=== PATIENT | female | born 1960 | race African-American/Black ===

== ENCOUNTER 2016-05-03 06:14 | Day surgery (SDC) | payer OTHER ==
[2016-05-02 14:26] VITALS: BMI 23.1
[2016-05-03] MEDS ORDERED: BUPIVACAINE HCL/PF 0.5% (5MG/ML) 10 ML VIAL ONE (07:49)
[2016-05-03] MEDS ORDERED: LIDOCAINE HCL 1%, 10 MG/ML (20ML VIAL) ONE (07:49)
[2016-05-03] MEDS ORDERED: MIDAZOLAM HCL 2 MG/2 ML SINGLE DOSE VIAL ONE (07:52)
[2016-05-03] MEDS ORDERED: PROPOFOL 20 ML ONE ×2 (07:53)
[2016-05-03] MEDS ORDERED: LIDOCAINE HCL/PF 2% SDV 5ML VIAL ONE (07:53)
--- NOTE | 2016-05-03 08:18 | HP ---
History & Physical Update - History History: No Change - Physical Physical: No Change - Assessment Assessment: No Change - Plan Plan: No Change
[2016-05-03] MEDS ORDERED: ceFAZolin SODIUM 1 GM VIAL IVPB ONE (08:26)
--- NOTE | 2016-05-03 09:14 | OP ---
Operative Note - Note: Operative Date: 05/03/16 Pre-Operative Diagnosis: Right buttock cyst Operation: Excision, right buttock cyst Findings: two cm cyst Post-Operative Diagnosis: Same as Pre-op Surgeon: Zander Chaudhary Anesthesia: Local, MAC Specimens Removed: buttock cyst Estimated Blood Loss (mls): 5 Operative Report Dictated: Yes
[2016-05-03] MEDS ORDERED: ONDANSETRON 4 MG/2 ML VIAL IVPUSH PRN (09:17)
[2016-05-03 10:33] VITALS: TEMP 98.2
[2016-05-03 11:14] VITALS: BP 129/73; PULSE 53
--- NOTE | 2016-05-03 19:50 | OP ---
DATE OF OPERATION: 05/03/2016 PROCEDURE: Excision of right buttock cyst with intermediate repair. PREOPERATIVE DIAGNOSIS: Right buttock cyst. POSTOPERATIVE DIAGNOSIS: Right buttock cyst. SURGEON: Zander Chaudhary MD ANESTHESIA: Local with sedation. FINDINGS AND PROCEDURE: This is a 56-year-old female who presented 6 weeks prior with an infected right buttock sebaceous cyst. An I&D in the office was initially done to control the infection. Six weeks later, the cyst persisted, so patient was advised elective excision of the cyst. Consent was obtained after discussing the risks, benefits and alternatives to the procedure. The patient was brought to the operating room and placed in left lateral decubitus position. Intravenous sedation was given by the anesthesia team. The right buttock was prepped and draped in the usual sterile fashion. Using lidocaine 1% with epinephrine, local anesthesia was administered to the proposed incision site. A 4 x 1.5-cm elliptical incision was made, incorporating the previous I&D site, containing inspissated secretions of the sebaceous gland, using scalpel blade number 15. This dissection carried further down to the subcutaneous tissue, followed by the use of Bovie cautery until the cyst together with the ellipse of skin was completely excised. The skin incision superiorly was also trimmed further to remove the thinned out skin. The wound was undermined about 1 cm on each side of the ellipse using Bovie cautery. Hemostasis was achieved using Bovie cautery. The wound was irrigated with sterile normal saline until the return was clear. The wound was closed with interrupted Vicryl 3-0 suture for the dermis and interrupted nylon 3-0 sutures in vertical mattress fashion for the skin. The wound was covered with sterile dressing. The patient was transferred to the post-anesthesia care unit in satisfactory condition. Estimated blood loss was about 5 mL. Wound class clean. The patient received 1 g of Ancef prior to the start of the procedure. Lauren LOGAN/[id number]
--- NOTE | 2016-05-04 14:02 | PATH ---
Surgical Pathology Report Patient Name: ELENA BREWER [facility]. Rec. #: [id number] /Age/Gender: 1960 (Age: 56) / F Account: [id number] Location: [facility] SURGICAL Taken: 05/03/2016 Received: 05/03/2016 Reported: 05/04/2016 Physicians: Zander Chaudhary M.D. Specimen(s) Received CYST RIGHT BUTTOCKS Clinical History Right buttocks cyst Final Diagnosis SKIN AND SOFT TISSUE, RIGHT BUTTOCK, CYSTS, EXCISION: EPIDERMAL INCLUSION CYST, FOCALLY RUPTURED. Electronically Signed Blayne Arambula M.D. Gross Description Received in formalin labeled "right buttock cyst" is a 2.0 x 0.8 cm lindsay-brown, elliptical portion of skin excised to depth of 1.9 cm. The epidermal surface is unremarkable. Sectioning reveals a disrupted cyst. Also received within the same container is a 2.7 x 0.4 cm lindsay-brown, irregular, unremarkable portion of skin excised to depth of 0.2 cm. No lesions are grossly identified within the second portion of tissue. [employer] sections are submitted in one cassette. /05/03/2016 saudi05/03/2016
== END 2016-05-03 11:24 | disposition home or self-care (01) ==
LOC: JASU-SURG 06:14
PROVIDERS: ATTEND Surgery
PROC: 0HB8XZZ Excision of Buttock Skin, External Approach (ICD-10-PCS; 2016-05-03)
PROC: 0JQ90ZZ Repair Buttock Subcutaneous Tissue and Fascia, Open Approach (ICD-10-PCS; principal; 2016-05-03 08:00)
DX: L72.0 Epidermal cyst (principal)
CPT/HCPCS: 88304-TC; 94760

== ENCOUNTER 2017-06-13 13:04 | Emergency (ER) | payer OTHER ==
[2017-06-13 13:09] VITALS: BP 167/84; PULSE 63; TEMP 98.5; BMI 20.5
[2017-06-13] MEDS ORDERED: AMOXICILLIN 500 MG CAPSULE (FP) PO ONE ×2 (13:57→14:08)
--- NOTE | 2017-06-13 14:02 | PDOC ---
History of Present Illness - General Chief Complaint: Abscess Boil Stated Complaint: ABSCESS BOIL Time Seen by Provider: 06/13/17 13:54 - History of Present Illness Initial Comments: 57-year-old female presents for evaluation of left-sided facial abscess. Started 1 day ago. She is scheduled to see her dentist later today. 06/13/17 13:57 Past History - Past Medical History Allergies/Adverse Reactions: Allergies Allergy/AdvReac Type Severity Reaction Status Date / Time No Known Allergies Allergy Verified 06/13/17 13:05 Home Medications: Ambulatory Orders Amlodipine Besylate [Norvasc -] 5 mg PO DAILY 05/02/16 Metformin HCl 500 mg PO BID 05/02/16 Ibuprofen 1 tab PO TID PRN #30 tablet 05/03/16 Cancer: Yes (1YR AGO LEFT LUNG (SMALL PIECE REMOVED)) COPD: No Diabetes: Yes HTN: Yes - Surgical History Lung Surgery: Yes (LEFT LUNG CANCER) Orthopedic Surgery: Yes (RIGHT ANKLE PINS 15YRS AGO) - Suicide/Smoking/Psychosocial Hx Smoking History: Former smoker Have you smoked in the past 12 months: No If you are a former smoker, when did you quit?: 1YR AGO Information on smoking cessation initiated: Yes 'Breaking Loose' booklet given: 06/13/17 Hx Alcohol Use: No Drug/Substance Use Hx: No Substance Use Type: Marijuana Hx Substance Use Treatment: No Review of Systems - Review of Systems Constitutional: Yes: See HPI. No: Chills, Diaphoresis, Fever, Malaise, Night Sweats HEENTM: Yes: Mouth Pain, Dental Problems. No: Nose Pain, Nose Congestion, Hearing Loss, Throat Pain, Throat Swelling, Difficulty Swallowing All Other Systems: Reviewed and Negative *Physical Exam - Vital Signs Last Vital Signs Temp Pulse Resp BP Pulse Ox 98.5 F 63 18 167/84 100 06/13/17 13:05 06/13/17 13:05 06/13/17 13:05 06/13/17 13:05 06/13/17 13:05 - Physical Exam Comments: There is left-sided facial swelling. She has poor dentition. Gingival disease. There is a erythematous fluctuant area on the left side of her lower gingiva. Area is tender 06/13/17 13:58 06/13/17 14:00 The pharynx is normal. Uvula is midline. *DC/Admit/Observation/Transfer Diagnosis at time of Disposition: Dental abscess - Discharge Dispostion Condition at time of disposition: Stable Decision to Admit order: No - Referrals Referrals: Eugene Figueroa MD [Primary Care Provider] - Rosalio Elizabeth DDS [Staff Physician] - Gio Jurado [Non Staff, Medical] - Yuko Toledo [Non Staff, Medical] - Gordo Sung MD [Other Staff,non-medical] - Martin Grijalva MD [Non Staff, Medical] - Julio Cesar Nayak MD [Non Staff, Medical] - Dequan Leiva MD [Non Staff, Medical] - Zander Szymanski MD [Non Staff, Medical] - Rita Ornelas MD [Non Staff, Medical] - Julita Mcmahan MD [Non Staff, Medical] - Lakesha Hopkins MD [Non Staff, Medical] - Zander Danielson MD [Non Staff, Medical] - William Irvin MD [Non Staff, Medical] - Garret Lunsford [Non Staff, Medical] - Brett Mejia MD [Non Staff, Medical] - - Patient Instructions Printed Discharge Instructions: DI for Tooth Abscess, DI for Tooth Decay Additional Instructions: Return to the emergency room if symptoms: Unresolved or worsen prior to follow- up today. In the meantime keep your scheduled appointment with her primary care dentist. I have also provided a list of local dentist in addition to the one you are scheduled to see just in case he needed it - Post Discharge Activity
== END 2017-06-13 14:15 | disposition home or self-care (01) ==
LOC: JERFT 13:04
DX: K04.7 Periapical abscess without sinus (principal); I10 Essential (primary) hypertension; E11.9 Type 2 diabetes mellitus without complications; Z79.84 Long term (current) use of oral hypoglycemic drugs; Z85.118 Personal history of other malignant neoplasm of bronchus and lung; Z87.891 Personal history of nicotine dependence
CPT/HCPCS: 99281-25

== ENCOUNTER 2017-12-22 21:51 | Inpatient (IN) | payer OTHER ==
--- NOTE | 2017-12-22 21:58 | PDOC ---
History of Present Illness - General Stated Complaint: VOMITING Time Seen by Provider: 12/22/17 21:58 History Source: Patient Exam Limitations: No Limitations - History of Present Illness Initial Comments: 12/22/17 22:20 This is a 57 year old female with a history of lung CA s/p resection/chemo/ radiation, CAD, HTN, DM, diverticulitis, who was BIBA with epigastric pain, nausea and intractable vomiting x1 day. Patient states that she thinks she was taking too many stool softeners, that made her sick. She did have one episode of NBNB diarrhea. Abdominal pain is sharp/burning, constant, non radiating. Patient denies fever, VIZCARRA, blurry vision, chest pain, jaw pain, numbness/tingling , sob, cough, sore throat, metallic taste, persistent diarrhea, sick contacts. She has not been able to take her po medications. Patient arrived with BP of 215/105; HR 70; PMH: COPD, LUNG CA, CAD, HTN, DM, diverticulitis PSHX: none Social hx: denies alcohol, quit tobacco; smokes marijuana; Past History - Past Medical History Allergies/Adverse Reactions: Allergies Allergy/AdvReac Type Severity Reaction Status Date / Time No Known Allergies Allergy Verified 12/22/17 22:20 Home Medications: Ambulatory Orders metFORMIN HCL [Metformin HCl] 500 mg PO BID 05/02/16 Amox-Tr/K Cl [Augmentin - 875Mg Tablet] 1 tab PO BID #14 tablet 08/30/17 Carvedilol [Coreg -] 6.25 mg PO BID #60 tablet 08/30/17 Cancer: Yes (1YR AGO LEFT LUNG (SMALL PIECE REMOVED)) COPD: No Diabetes: Yes GI Disorders: Yes (Diverticulosis) HTN: Yes - Surgical History Lung Surgery: Yes (LEFT LUNG CANCER) Orthopedic Surgery: Yes (RIGHT ANKLE PINS 15YRS AGO) - Suicide/Smoking/Psychosocial Hx Smoking History: Former smoker Have you smoked in the past 12 months: No Number of Cigarettes Smoked Daily: 1 If you are a former smoker, when did you quit?: 1YR AGO 'Breaking Loose' booklet given: 06/13/17 Hx Alcohol Use: No Drug/Substance Use Hx: Yes (Marijuana) Substance Use Type: Marijuana Hx Substance Use Treatment: No Review of Systems - Review of Systems Able to Perform ROS?: Yes Constitutional: Yes: Chills, Loss of Appetite. No: Fever HEENTM: No: Blurred Vision Respiratory: No: Cough, Orthopnea, Shortness of Breath, Wheezing, Productive cough Cardiac (ROS): No: Chest Pain, Edema, Irregular Heart Rate, Lightheadedness, Palpitations, Syncope ABD/GI: Yes: Diarrhea, Nausea, Poor Appetite, Poor Fluid Intake, Vomiting, Other (mid epigastric pain). No: Blood Streaked Bowels, Constipated, Difficulty Swallowing : No: Dysuria, Discharge, Frequency Musculoskeletal: No: Back Pain, Joint Pain Integumentary: No: Bruising, Change in Color Neurological: No: Headache, Numbness, Paresthesia Psychiatric: No: Other Endocrine: No: Excessive Sweating Hematologic/Lymphatic: No: Anemia ED Treatment Course - LABORATORY CBC & Chemistry Diagram: 12/22/17 22:22 12/22/17 22:22 Medical Decision Making - Medical Decision Making 12/22/17 22:57 This is a 57 year old with a history of uncontrolled hypertension, CAD, DM, Lung CA, diverticulitis, who presents with severe abdominal pain, n/ intractable vomiting and hypertension. R/o acute infectious causes of gastroenteritis, diverticulitis, appendicitis, cholecysitis,and other acute abdominal/pelvic pathology. R/o ACS. Due to abdominal pain and BP r/o dissection. -N/V/ severe mid epigastric abdominal pain -cbc, cmp, ua, mg, -IVF-zofran -ct abdomen pelvis #Hypertensive urgency; w severe abdominal pain -s/p IV hydralazine ; (labetalol on back order) -nitroglycerin SL -o2 -cxr -ekg -cardiac profile -chest/abd CTA r/o dissection 12/22/17 23:09 12/22/17 23:33 -BP systolic decrease to 170s with hydralazine -hr later increased to 190s/100s; -will start nitroglycerine drip -due to hx of DM; not able to take po meds; will order insulin ss; q4hbgm 12/22/17 23:40 -cbc with elevated wbc >15,000; afebrile; r/o acute abdominal pathology' CT pending -blood cultures; spoke with primary who wants to started levaquin/flagy; QTC noted -hypokalemia with hypomagnesia; replace with 4bags potassium; with add K to IVF as well ; 2mg MG IV -hyperglycemia; IVF; insulin once K is replaced; 12/23/17 00:37 -patient accepted to ICU for hypertensive urgency/on nitroglycerin drip -CTA chest abd pelvis pending -spoke with Dr. Eugene Figueroa for admission to hospital 12/23/17 01:11 *DC/Admit/Observation/Transfer Diagnosis at time of Disposition: Hypertensive urgency - Discharge Dispostion Condition at time of disposition: Fair Decision to Admit order: Yes - Referrals - Patient Instructions - Post Discharge Activity
[2017-12-22] MEDS ORDERED: SODIUM CHLORIDE 0.9% 500 ML INFUS.BAG IV ONE ×2 (22:06→23:47)
[2017-12-22] MEDS ORDERED: ONDANSETRON 4 MG/2 ML VIAL IVPUSH ONE (22:07)
[2017-12-22] MEDS ORDERED: LABETALOL HCL 5 MG/1 ML (100MG/20 ML VIAL) IVPUSH ONE (22:09)
[2017-12-22] MEDS ORDERED: ONDANSETRON 4 MG/2 ML VIAL ONE (22:16)
[2017-12-22] MEDS ORDERED: hydrALAZINE HCL 20 MG/ML VIAL IVPUSH ONE ×2 (22:19→22:20)
[2017-12-22] MEDS ORDERED: hydrALAZINE HCL 20 MG/ML VIAL ONE (22:20)
--- NOTE | 2017-12-22 22:24 | PDOC ---
Attending Attestation - HPI HPI: 12/22/17 23:23 The patient is a 57-year-old female with past medical history significant for PA (2007), HTN (not compliant with medication), Lung CA s/p resection, chemo, and radiation, and DM presents to the emergency department with nausea and vomiting. The patient presents with 1 day of nausea and NBNB vomiting and a single episode of diarrhea yesterday. The patient reports associated symptoms of sharp, burning abdominal pain. Denies fever, chills, chest pain, shortness of breath, silvestre contact or recent illness. Allergies: NKA PCP: Dr. Saumya Figueroa. - Medical Decision Making 12/22/17 23:23 Documentation prepared by Cyndi Stanford, acting as medical officer psychiatry for Rasheeda Coleman MD. <Cyndi Stanford - Last Filed: 12/22/17 23:23> - Resident Resident Name: Quin Page - ED Attending Attestation I have performed the following: I have examined & evaluated the patient, The case was reviewed & discussed with the resident, I agree w/resident's findings & plan - Physicial Exam PE: 12/23/17 00:44 Agree with resident exam. HEENT: icteric eyes; otherwise normal HEENT Heart: S1S2 RRR Lungs: CTA B Abd: epigastric abd pain and LLQ pain. No rebound and no guarding Flank: non tender EXT: no swelling and no pitting edema - Medical Decision Making 12/23/17 00:12 Pt will be admitted for uncontrolled as well as hypertensive urgency. Pt has a K + of 2.9 Pt given potassium runs as well as potassium in a L bag, as well as 2g mag sulfate. 12/23/17 00:14 Pt will be admitted to the ICU, as she is on a nitro drip. 12/23/17 00:37 BP is improved at 178 systolic. Nitro drip running, as well as 2 L NSS. <Rasheeda Coleman - Last Filed: 12/23/17 00:45>
[2017-12-22 22:26] VITALS: BMI 25.7
[2017-12-22] MEDS ORDERED: METOPROLOL TARTRATE 5 MG/5 ML VIAL IVPUSH ONE (22:37)
[2017-12-22] MEDS ORDERED: METOPROLOL TARTRATE 50 MG TABLET (FP) PO ONE (22:38)
[2017-12-22] MEDS ORDERED: NITROGLYCERIN SUBLINGUAL 1/150 0.4 MG TAB SL ONE (22:38)
[2017-12-22] MEDS ORDERED: METOPROLOL TARTRATE 5 MG/5 ML VIAL ONE (22:42)
[2017-12-22 22:46] LABS: BASO % 0.6 % (0-2.0); EOS % 0.1 % (0-4.5); HEMATOCRIT 39.3 % (32.4-45.2); HEMOGLOBIN 13.4 GM/dL (10.7-15.3); LYMPH % 8.4 % (8-40); MEAN CELL VOLUME 88.2 fl (80-96); MEAN PLT VOLUME 9.5 fl (7.5-11.1); MONO % 2.6 % (3.8-10.2); NEUT % 88.3 % (42.8-82.8); PLATELET COUNT 329 K/MM3 (134-434); RBC 4.46 M/mm3 (3.60-5.2); RDW 14.2 % (11.6-15.6); WHITE BLOOD COUNT 15.9 K/mm3 (4.0-10.0)
[2017-12-22] MEDS ORDERED: morphine CARPU-JECT 2 MG/1 ML DISP.SYRIN IVPUSH ONE (23:20)
[2017-12-22] MEDS ORDERED: METOPROLOL TARTRATE 25 MG TABLET (FP) ONE (23:22)
[2017-12-22 23:34] LABS: ALBUMIN 3.5 g/dl (3.4-5.0); ALK PHOS 114 U/L (45-117); ANION GAP 14 MMOL/L (8-16); BLOOD UREA NITROGEN 16 mg/dL (7-18); CALCIUM 9.8 mg/dL (8.5-10.1); CHLORIDE 100 mmol/L (98-107); CO2 23 mmol/L (21-32); CREATININE 0.8 mg/dL (0.55-1.3); GLUCOSE,RANDOM 272 mg/dL (74-106); MAGNESIUM 1.6 mg/dL (1.8-2.4); SGOT/AST 17 U/L (15-37); SGPT/ALT 14 U/L (13-61); SODIUM 137 mmol/L (136-145); TOT PROT 8.2 g/dl (6.4-8.2)
[2017-12-22 23:35] LABS: POTASSIUM 2.9 mmol/L (3.5-5.1)
[2017-12-22 23:36] LABS: URINE APPEARANCE CLEAR; URINE BILIRUBIN NEGATIVE (<2.0 mg/dL); URINE COLOR LTYELLOW; URINE GLUCOSE (UA) 3+ (NEGATIVE); URINE KETONE 2+ (NEGATIVE); URINE LEUK ESTERASE NEGATIVE (NEGATIVE); URINE NITRITE NEGATIVE (NEGATIVE); URINE PROTEIN 2+ (NEGATIVE); URINE UROBILINOGEN NEGATIVE mg/dL (0.2-1.0)
[2017-12-22 23:37] LABS: LIPASE 75 U/L (73-393)
[2017-12-22] MEDS ORDERED: MAGNESIUM SULF 50% (8.12 MEQ/2 ML-1 GM VIAL) IVPB ONE (23:40)
[2017-12-22 23:43] LABS: EPI CELLS RARE /HPF (FEW); URINE BACTERIA RARE /hpf (NONE SEEN); URINE MUCUS RARE
[2017-12-22] MEDS ORDERED: SODIUM CHLORIDE 1,000 ML with POTASSIUM CHLORIDE 20 MEQ IVPB ONE (23:50)
[2017-12-22] MEDS ORDERED: MORPHINE SULFATE 2 MG/ML VIAL ONE (23:51)
[2017-12-22] MEDS ORDERED: NITROGLYCERIN 25MG/D5W 250ML 25 MG/250 ML ML IVPB ONE (23:51)
[2017-12-22] MEDS ORDERED: MAGNESIUM 1GM/D5W - 2 GM/200 ML IVPB IVPB ONE (23:51)
[2017-12-22] MEDS ORDERED: MAGNESIUM 1GM/D5W - 1 GM/100 ML IVPB IVPB ONE (23:52)
[2017-12-22 23:54] LABS: INR 0.98 (0.83-1.09); PROTHROMBIN TIME (PATIENT) 11.6 SEC (9.7-13.0)
[2017-12-22] MEDS ORDERED: KCL 10 MEQ IVPB 10 MEQ/100 ML INFUS.BAG IVPB ONE (23:54)
[2017-12-22] MEDS: NITROGLYCERIN 25MG/D5W 250ML 25 MG/250 ML ML IVPB SCH (23:55)
[2017-12-22] MEDS: KCL 10 MEQ IVPB 10 MEQ/100 ML INFUS.BAG IVPB SCH (23:55)
[2017-12-22 23:56] LABS: ACTIVATED PTT 22.9 SECONDS (25.2-36.5)
--- NOTE | 2017-12-23 00:56 | PN ---
Physical Exam: SUBJECTIVE: Patient seen and examined OBJECTIVE: Vital Signs Period Temp Pulse Resp BP Sys/Maxwell Pulse Ox Last 24 Hr 97.4 F-97.4 F 77-80 20 177-205/97-115 100-100 GENERAL: The patient is awake, alert, and fully oriented, in no acute distress. HEAD: Normal with no signs of trauma. EYES: PERRL, extraocular movements intact, sclera anicteric, conjunctiva clear. No ptosis. ENT: Ears normal, nares patent, oropharynx clear without exudates, moist mucous membranes. NECK: Trachea midline, full range of motion, supple. LUNGS: Breath sounds equal, clear to auscultation bilaterally, no wheezes, no crackles, no accessory muscle use. HEART: Regular rate and rhythm, S1, S2 without murmur, rub or gallop. ABDOMEN: Soft, nontender, nondistended, normoactive bowel sounds, no guarding, no rebound, no hepatosplenomegaly, no masses. EXTREMITIES: 2+ pulses, warm, well-perfused, no edema. NEUROLOGICAL: Cranial nerves II through XII grossly intact. Normal speech, gait not observed. PSYCH: Normal mood, normal affect. SKIN: Warm, dry, normal turgor, no rashes or lesions noted Laboratory Results - last 24 hr 12/22/17 12/22/17 12/22/17 22:22 22:22 22:22 WBC 15.9 H RBC 4.46 Hgb 13.4 Hct 39.3 MCV 88.2 MCH 30.0 MCHC 34.0 RDW 14.2 Plt Count 329 D MPV 9.5 Absolute Neuts (auto) 14.0 H Neutrophils % 88.3 H D Lymphocytes % 8.4 D Monocytes % 2.6 L Eosinophils % 0.1 D Basophils % 0.6 Nucleated RBC % 0 PT with INR INR PTT (Actin FS) Sodium 137 Potassium 2.9 L* Chloride 100 Carbon Dioxide 23 Anion Gap 14 BUN 16 Creatinine 0.8 Creat Clearance w eGFR > 60 Random Glucose 272 H Calcium 9.8 Magnesium 1.6 L Total Bilirubin 1.0 AST 17 ALT 14 Alkaline Phosphatase 114 Creatine Kinase 106 Cancelled Troponin I < 0.02 Cancelled Total Protein 8.2 Albumin 3.5 Lipase 75 Urine Color Urine Appearance Urine pH Ur Specific [place] Urine Protein Urine Glucose (UA) Urine Ketones Urine Blood Urine Nitrite Urine Bilirubin Urine Urobilinogen Ur Leukocyte Esterase Urine WBC (Auto) Urine RBC (Auto) Ur Epithelial Cells Urine Bacteria Urine Mucus 12/22/17 12/22/17 12/22/17 23:15 23:15 23:25 WBC RBC Hgb Hct MCV MCH MCHC RDW Plt Count MPV Absolute Neuts (auto) Neutrophils % Lymphocytes % Monocytes % Eosinophils % Basophils % Nucleated RBC % PT with INR 11.60 Cancelled INR 0.98 Cancelled PTT (Actin FS) 22.9 L Sodium Potassium Chloride Carbon Dioxide Anion Gap BUN Creatinine Creat Clearance w eGFR Random Glucose Calcium Magnesium Total Bilirubin AST ALT Alkaline Phosphatase Creatine Kinase Troponin I Total Protein Albumin Lipase Urine Color Ltyellow Urine Appearance Clear Urine pH 8.0 D Ur Specific [place] 1.010 Urine Protein 2+ H Urine Glucose (UA) 3+ H Urine Ketones 2+ H Urine Blood 1+ H Urine Nitrite Negative Urine Bilirubin Negative Urine Urobilinogen Negative Ur Leukocyte Esterase Negative Urine WBC (Auto) <1 Urine RBC (Auto) 11 Ur Epithelial Cells Rare Urine Bacteria Rare Urine Mucus Rare Active Medications Generic Name Dose Route Start Last Admin Trade Name Wagnerq PRN Reason Stop Dose Admin Chlorhexidine Gluconate 1 applic 12/23/17 22:00 Hibiclens For Decolonization - TP HS SENTHIL Nitroglycerin/Dextrose 25 mg in 250 mls @ 3 mls/hr 12/22/17 23:45 12/22/17 23 :55 Nitroglycerin 25mg/D5w 250ml IVPB 5 mcg/min TITR SENTHIL 3 mls/hr Administration 5 MCG/MIN Potassium Chloride 10 meq in 100 mls @ 100 mls/hr 12/22/17 23:45 12/22/17 23: 55 Potassium Chloride 10 Meq Premix Ivpb - IVPB 12/23/17 03:44 100 mls/hr Q60M SENTHIL Administration Metronidazole 500 mg in 100 mls @ 100 mls/hr 12/23/17 00:45 Flagyl 500mg Premixed Ivpb - IVPB Q6H-IV SENTHIL Levofloxacin 500 mg in 100 mls @ 100 mls/hr 12/23/17 00:32 12/23/17 00:42 Levaquin 500 Mg Premixed Ivpb - IVPB 12/23/17 01:31 100 mls/hr ONCE ONE Administration Protocol Mupirocin 1 applic 12/23/17 10:00 Bactroban Ointment (For Decolonization) - NS 12/28/17 09:59 BID [facility] ASSESSMENT/PLAN:
[2017-12-23 01:09] LABS: VENOUS PC02 32.8 mmHg (38-52); VENOUS PH 7.49 (7.32-7.42); VENOUS PO2 57.2 mmHg (28-48)
--- NOTE | 2017-12-23 01:12 | CONSULT ---
Consultation: REQUESTING PROVIDER: CONSULT REQUEST: We have been asked to medically evaluate this patient for ( hypertensive urgency, epigastric pain, vomiting ). HISTORY OF PRESENT ILLNESS: 57yo F with history of HTN, DM, lung Ca s/p resection, chemo and radiation (2016), and diverticulosis who came to er because of pain in epigastric area and vomiting since yesterday. Pt states that yesterday after having lunch ( ) she had vomiting and later later on pain in epigastric area. Vomit consist of food particles, reports have couple of episodes of vomiting, no blood in vomit. Stats pain started after vomiting 10/ 10 in intensity, non radiating, increases with food and nothing makes it better , burning/ sharp in quality, constant. Reports she smokes weed every day and last time smoked on 2 days ago. Denies use of pain meds, alcohol, spicy food. Denies yellow discoloration of eyes, urine and skin. Patients states she takes 2.5mg of norvasc and recently increased to 5mg. Report she take metformin 500mg bid and is complaint with her med. States she checked her blood sugar and BP few days ago they were running high. Her last meal was yesterday lunch. Denies diarrhoea, fever, chills, abdominal distension, chest pain, palpitations , sob, dizziness and lightheadedness, headache, vision change, new numbness or weakness. Denies NSAID use In hospital pt was found to have hypertension urgency and was given hydralazzine and metporolol. Later on started on nitro drip in er. pt also found to have hypokalemia, hypomagnesemia and hyperglycemia. SoHx: no tobacco, no alcohol, marijuana use via smoking REVIEW OF SYSTEMS: CONSTITUTIONAL: Absent: fever, chills, diaphoresis, generalized weakness, malaise, HEENT: Absent: rhinorrhea, nasal congestion, throat pain, throat swelling, CARDIOVASCULAR: Absent: chest pain, syncope, palpitations, irregular heart rate, lightheadedness , peripheral edema RESPIRATORY: Absent: cough, shortness of breath, dyspnea with exertion, orthopnea, wheezing, stridor, hemoptysis GASTROINTESTINAL: Absent: abdominal pain, abdominal distension, nausea, vomiting, diarrhea, constipation, melena, hematochezia GENITOURINARY: Absent: dysuria, frequency, urgency, hesitancy, hematuria, flank pain, genital pain MUSCULOSKELETAL: Absent: myalgia, arthralgia, joint swelling, back pain, neck pain SKIN: Absent: rash, itching, pallor ENDOCRINE: Absent: unexplained weight gain, unexplained weight loss, NEUROLOGIC: Absent: headache, focal weakness or paresthesias, dizziness, unsteady gait, seizure, PHYSICAL EXAMINATION Vital Signs - 24 hr 12/22/17 12/22/17 12/22/17 21:55 22:14 22:45 Temperature 97.4 F L 97.4 F L Pulse Rate 80 Pulse Rate [ 80 77 Left Radial] Respiratory 20 Rate Blood Pressure 205/115 H Blood Pressure 205/115 H 205/110 H [Left Arm] O2 Sat by Pulse 100 100 Oximetry (%) 12/22/17 12/22/17 22:47 22:51 Temperature Pulse Rate Pulse Rate [ Left Radial] Respiratory Rate Blood Pressure 205/110 H Blood Pressure 177/97 H [Left Arm] O2 Sat by Pulse Oximetry (%) GENERAL: Awake, alert, and fully oriented, in no acute distress. HEAD: Normal with no signs of trauma. EYES: sclera anicteric, conjunctiva clear. No lid lag. EARS, NOSE, THROAT:dry mucous membranes. NECK: Normal range of motion, supple without lymphadenopathy, JVD, or masses. LUNGS: Breath sounds equal, clear to auscultation bilaterally. No wheezes, and no crackles. No accessory muscle use. HEART: Regular rate and rhythm, normal S1 and S2 ABDOMEN: Soft, tender epigastric and ruq , not distended, normoactive bowel sounds, no guarding, rebound tenderness in ruq , no masses. MUSCULOSKELETAL: Normal range of motion at all joints. No bony deformities or tenderness. UPPER EXTREMITIES: 2+ pulses, warm, well-perfused. No cyanosis.= LOWER EXTREMITIES: warm, well-perfused. No calf tenderness. No peripheral edema. NEUROLOGICAL: . Normal speech. PSYCHIATRIC: Cooperative. Good eye contact. SKIN: Warm, dry, Laboratory Results - last 24 hr 12/22/17 12/22/17 12/22/17 22:22 22:22 22:22 WBC 15.9 H RBC 4.46 Hgb 13.4 Hct 39.3 MCV 88.2 MCH 30.0 MCHC 34.0 RDW 14.2 Plt Count 329 D MPV 9.5 Absolute Neuts (auto) 14.0 H Neutrophils % 88.3 H D Lymphocytes % 8.4 D Monocytes % 2.6 L Eosinophils % 0.1 D Basophils % 0.6 Nucleated RBC % 0 PT with INR INR PTT (Actin FS) Sodium 137 Potassium 2.9 L* Chloride 100 Carbon Dioxide 23 Anion Gap 14 BUN 16 Creatinine 0.8 Creat Clearance w eGFR > 60 Random Glucose 272 H Calcium 9.8 Magnesium 1.6 L Total Bilirubin 1.0 AST 17 ALT 14 Alkaline Phosphatase 114 Creatine Kinase 106 Cancelled Troponin I < 0.02 Cancelled Total Protein 8.2 Albumin 3.5 Lipase 75 Urine Color Urine Appearance Urine pH Ur Specific Bradley Urine Protein Urine Glucose (UA) Urine Ketones Urine Blood Urine Nitrite Urine Bilirubin Urine Urobilinogen Ur Leukocyte Esterase Urine WBC (Auto) Urine RBC (Auto) Ur Epithelial Cells Urine Bacteria Urine Mucus 12/22/17 12/22/17 12/22/17 23:15 23:15 23:25 WBC RBC Hgb Hct MCV MCH MCHC RDW Plt Count MPV Absolute Neuts (auto) Neutrophils % Lymphocytes % Monocytes % Eosinophils % Basophils % Nucleated RBC % PT with INR 11.60 Cancelled INR 0.98 Cancelled PTT (Actin FS) 22.9 L Sodium Potassium Chloride Carbon Dioxide Anion Gap BUN Creatinine Creat Clearance w eGFR Random Glucose Calcium Magnesium Total Bilirubin AST ALT Alkaline Phosphatase Creatine Kinase Troponin I Total Protein Albumin Lipase Urine Color Ltyellow Urine Appearance Clear Urine pH 8.0 D Ur Specific Bradley 1.010 Urine Protein 2+ H Urine Glucose (UA) 3+ H Urine Ketones 2+ H Urine Blood 1+ H Urine Nitrite Negative Urine Bilirubin Negative Urine Urobilinogen Negative Ur Leukocyte Esterase Negative Urine WBC (Auto) <1 Urine RBC (Auto) 11 Ur Epithelial Cells Rare Urine Bacteria Rare Urine Mucus Rare Active Medications Generic Name Dose Route Start Last Admin Trade Name Freq PRN Reason Stop Dose Admin Chlorhexidine Gluconate 1 applic 12/23/17 22:00 Hibiclens For Decolonization - TP HS [facility] Nitroglycerin/Dextrose 25 mg in 250 mls @ 3 mls/hr 12/22/17 23:45 12/22/17 23 :55 Nitroglycerin 25mg/D5w 250ml IVPB 5 mcg/min TITR [facility] 3 mls/hr Administration 5 MCG/MIN Potassium Chloride 10 meq in 100 mls @ 100 mls/hr 12/22/17 23:45 12/22/17 23: 55 Potassium Chloride 10 Meq Premix Ivpb - IVPB 12/23/17 03:44 100 mls/hr Q60M [facility] Administration Metronidazole 500 mg in 100 mls @ 100 mls/hr 12/23/17 00:45 Flagyl 500mg Premixed Ivpb - IVPB Q6H-IV [facility] Levofloxacin 500 mg in 100 mls @ 100 mls/hr 12/23/17 00:32 12/23/17 00:42 Levaquin 500 Mg Premixed Ivpb - IVPB 12/23/17 01:31 100 mls/hr ONCE ONE Administration Protocol Mupirocin 1 applic 12/23/17 10:00 Bactroban Ointment (For Decolonization) - NS 12/28/17 09:59 BID [facility] ASSESSMENT/PLAN: Hypertensive Urgency ekg no st changes, LVH, no trop leak. ECHO from august reviewed. No evidence of end-organ damage presently monitor vitals. cardiac monitoring slowly decrease the BP. on nitro drip. Start PO meds once vomiting/ nausea improves. follow urine toxicology. Epigastric pain with vomiting: d/d gastritis, cannaboid hyperemisis syndrome, gastroperesis, cholecystitis. ekg no st changes, LVH, no trop leak. ECHO from august reviewed. Pain control nausea and vomiting control. follow ultrasound upper abdomen CTA chest and abdomen ordered by ED to r/o dissecting aortic aneurysm which is less likely. protonix iv daily. consider gi consult replete potassium. started on levofloxacin by ed team follow urine toxicology leucocytosis likely reactive. pt is afebrile on levaquin and flagyl repeat in am. follow blood culture DM BGM monitoring hold oral hypoglycemic start insulin sliding scale once serum k is more than 3.5 hba1c ketoneurea doesn't meet criteria for dka. likely because of patient didn't eat any thing from yesterday. repeat in am Hypokalemia likely because of vomiting replete Hypomagnesemia. got 2gm in er Hx of Lung Ca s/p resection, chemo and radiation about 2 years ago FEN: fluids: 1/2 ns 50 ml/hr. Once BP comes under control then increase the fluid. electrolyte abnormalities: Hypokalemia to 3.3 (replete as needed) Nutrition: NPO status PPX: DVT - scd gi protonix Dispo: ICU admission due to nitro gtt titration. Anticipate transfer to /S after hypertension under control and switched to PO meds Visit type - Emergency Visit Emergency Visit: Yes ED Registration Date: 12/22/17 Care time: The patient presented to the Emergency Department on the above date and was hospitalized for further evaluation of their emergent condition. - New Patient This patient is new to me today: Yes Date on this admission: 12/23/17 - Critical Care Critical Care patient: Yes Total Critical Care Time (in minutes): 45 Critical Care Statement: The care of this patient involved high complexity decision making to prevent further life threatening deterioration of the patient 's condition and/or to evaluate & treat vital organ system(s) failure or risk of failure.
[2017-12-23 01:30] LABS: COCAINE, UR NEGATIVE ng/ml (CUTOFF=300); METHADONE, UR NEGATIVE ng/ml (CUTOFF=300); PHENCYCLIDINE,URINE NEGATIVE ng/ml (CUTOFF=25); URINE AMPHETAMINES NEGATIVE ng/ml (CUTOFF=500); URINE BARBITURATES NEGATIVE ng/ml (CUTOFF=200); URINE BENZODIAZEPINES NEGATIVE ng/ml (CUTOFF=200)
[2017-12-23 01:31] LABS: OPIATES, URI POSITIVE ng/ml (CUTOFF=300)
[2017-12-23] MEDS ORDERED: FAMOTIDINE 20 MG/50 ML IVPB 20 MG/50 ML MG IVPB SCH (02:00)
[2017-12-23] MEDS ORDERED: amLODIPine BESYLATE 10 MG TABLET (FP) PO ONE ×2 (02:25→03:15)
[2017-12-23] MEDS: KCL 10 MEQ IVPB 10 MEQ/100 ML INFUS.BAG IVPB SCH ×6 (02:30→19:00)
[2017-12-23] MEDS ORDERED: PROMETHAZINE HCL 25 MG/1 ML VIAL IVPB PRN (02:39)
[2017-12-23] MEDS: SODIUM CHLORIDE 0.45%/POT 20 MEQ/1,000 ML INFUS.BAG IV SCH (03:11)
[2017-12-23] MEDS: INSULIN SLIDING SCALE (NOVOLOG) 1 VIAL SQ SCH ×4 (06:17→23:54)
[2017-12-23 06:18] LABS: BASO % 0.2 % (0-2.0); HEMATOCRIT 37.4 % (32.4-45.2); HEMOGLOBIN 12.6 GM/dL (10.7-15.3); LYMPH % 2.7 % (8-40); MCH 29.3 pg (25.7-33.7); MCHC 33.6 g/dl (32.0-36.0); MEAN CELL VOLUME 87.4 fl (80-96); MEAN PLT VOLUME 9.3 fl (7.5-11.1); MONO % 1.5 % (3.8-10.2); NEUT % 95.6 % (42.8-82.8); PLATELET COUNT 319 K/MM3 (134-434); RBC 4.28 M/mm3 (3.60-5.2); RDW 14.3 % (11.6-15.6)
[2017-12-23 06:36] LABS: ALBUMIN 3.5 g/dl (3.4-5.0); ALK PHOS 121 U/L (45-117); ANION GAP 12 MMOL/L (8-16); BILIRUBIN,TOTAL 0.7 mg/dL (0.2-1); BLOOD UREA NITROGEN 13 mg/dL (7-18); CALCIUM 8.9 mg/dL (8.5-10.1); CHLORIDE 100 mmol/L (98-107); CO2 26 mmol/L (21-32); CREATININE 0.7 mg/dL (0.55-1.3); GLUCOSE,RANDOM 237 mg/dL (74-106); MAGNESIUM 1.9 mg/dL (1.8-2.4); SGOT/AST 11 U/L (15-37); SGPT/ALT 16 U/L (13-61); SODIUM 138 mmol/L (136-145); TOT PROT 8.5 g/dl (6.4-8.2)
[2017-12-23] MEDS: HEPARIN NA (PORCINE) 5,000 UNITS/ML 1ML VIAL SQ SCH ×2 (09:03→21:26)
[2017-12-23] MEDS: CARVEDILOL 6.25 MG TABLET (FP) PO SCH ×2 (09:03→21:27)
[2017-12-23] MEDS: MUPIROCIN 2% TOPICAL OINTMENT FOR DECOLONIZATION NS SCH ×2 (11:41→23:52)
--- NOTE | 2017-12-23 11:43 | CONSULT ---
Consult Consult Specialty:: General Surgery Referred by:: Reason for Consultation:: free fluid in the pelvis - History of Present Illness Chief Complaint: abdominal pain History of Present Illness: 57yo female PMH [place] (2006), HTN (not compliant with medication), Lung CA s/p resection, chemo, and radiation, and DM presents to the emergency department with nausea and vomiting. The patient presents with 1 day of nausea and NBNB vomiting and a single episode of diarrhea yesterday. The patient reports associated symptoms of sharp, burning lower abdominal pain. Denies fever, chills , chest pain, shortness of breath, sick contact or recent illness. Ct scan shows free fluid in the pelvis and complex ovarian cystic changes. We were asked to assess. - History Source History Provided By: Patient, Medical Record Limitations to Obtaining History: No Limitations - Past Medical History Cardio/Vascular: Yes: CAD (reported prior [place] 2006 treated medically), HTN Gastrointestinal: Yes: Diverticulitis Endocrine: Yes: Diabetes Mellitus - Past Surgical History Past Surgical History: Yes: Hysterectomy - Alcohol/Substance Use Hx Alcohol Use: No History of Substance Use: reports: Marijuana - Smoking History Smoking history: Former smoker Have you smoked in the past 12 months: No Aproximately how many cigarettes per day: 1 If you are a former smoker, when did you quit?: 2014 - Social History Usual Living Arrangement: With Spouse ADL: Independent History of Recent Travel: No Home Medications - Allergies Allergies/Adverse Reactions: Allergies Allergy/AdvReac Type Severity Reaction Status Date / Time No Known Allergies Allergy Verified 12/22/17 22:20 - Home Medications Home Medications: Ambulatory Orders metFORMIN HCL [Metformin HCl] 500 mg PO BID 05/02/16 Amox-Tr/K Cl [Augmentin - 875Mg Tablet] 1 tab PO BID #14 tablet 08/30/17 Amlodipine Besylate [Norvasc -] 5 mg PO DAILY 12/23/17 Family Disease History - Family Disease History Family Disease History: Diabetes: Father, Mother Review of Systems - Review of Systems Constitutional: denies: Chills, Fever, Unintentional Wgt. Loss Eyes: denies: Blind Spots, Double Vision HENT: denies: Difficult Swallowing, Throat Pain Neck: denies: Decreased ROM, Pain on Movement Cardiovascular: denies: Chest Pain, Palpitations Respiratory: reports: Exercise Intolerance, SOB, SOB on Exertion. denies: Cough Genitourinary: reports: Burning, Dysuria. denies: Discharge Breasts: reports: No Symptoms Reported. denies: Pain Musculoskeletal: denies: Muscle Pain, Muscle Cramps, Muscle Weakness Integumentary: denies: Eczema, Rash Neurological: denies: Seizure, Syncope Endocrine: denies: Unexplained Weight Gain, Unexplained Weight Loss Hematology/Lymphatic: denies: Easily Bruised, Excessive Bleeding Psychiatric: denies: Anxiety, Depression Physical Exam Vital Signs: Vital Signs Temperature 98.4 F 12/23/17 02:30 Pulse Rate 98 H 12/23/17 09:00 Respiratory Rate 17 12/23/17 09:00 Blood Pressure 168/95 12/23/17 09:00 O2 Sat by Pulse Oximetry (%) 98 12/23/17 08:30 Constitutional: Yes: No Distress, Calm, Cachectic, Thin Eyes: Yes: Conjunctiva Clear, EOM Intact HENT: Yes: Atraumatic, Normocephalic Neck: Yes: Supple, Trachea Midline Cardiovascular: Yes: Regular Rate and Rhythm, S1, S2 Respiratory: Yes: Regular, CTA Bilaterally, Diminished, SOB Gastrointestinal: Yes: Normal Bowel Sounds, Soft. No: Palpable Mass, Tenderness , Tenderness, Epigastrium, Tenderness, Rebound ...Rectal Exam: Yes: Deferred Renal/: No: CVA Tenderness - Left, CVA Tenderness - Right Breast(s): No: Gynecomastia, Mass Musculoskeletal: No: Muscle Pain, Muscle Weakness Extremities: No: Cool, Cyanosis Edema: No Peripheral Pulses WNL: Yes Integumentary: No: Jaundice, Rash, Tattoos Neurological: Yes: Alert, Oriented Psychiatric: Yes: Alert, Oriented Labs: CBC, BMP 12/23/17 05:30 12/23/17 05:30 Imaging - Results Chest X-ray: Report Reviewed, Image Reviewed Cat Scan: Report Reviewed (free fluid in pelvis and cystic ovarian changes), Image Reviewed Ultrasound: Report Reviewed, Image Reviewed Problem List - Problems (1) Nausea & vomiting Assessment/Plan: 57yo female with MMP including signifincant cancer history, lower abdominal pain with nausea an vomiting, passing BM and flatus no other sign of bowel obstruction. No indication for acute intervention from general surgery. Supportive care NPO and IVF hydration antiemetic therapy Continuity Manager oncology evaluation adequate analgesia No need for general surgery followup Thank you for the opportunity to participate in the care of this patient. Code(s): R11.2 - NAUSEA WITH VOMITING, UNSPECIFIED Qualifiers: Vomiting type: bilious vomiting Qualified Code(s): R11.14 - Bilious vomiting (2) Bilateral ovarian cysts Code(s): N83.201 - UNSPECIFIED OVARIAN CYST, RIGHT SIDE; N83.202 - UNSPECIFIED OVARIAN CYST, LEFT SIDE (3) Abnormal ECG Code(s): R94.31 - ABNORMAL ELECTROCARDIOGRAM [ECG] [EKG] (4) Diabetes Code(s): E11.9 - TYPE 2 DIABETES MELLITUS WITHOUT COMPLICATIONS Qualifiers: Diabetes mellitus type: type 2 Chronic kidney disease stage: unspecified stage (5) Hypertension Code(s): I10 - ESSENTIAL (PRIMARY) HYPERTENSION Qualifiers: Hypertension type: unspecified Qualified Code(s): I10 - Essential (primary ) hypertension
[2017-12-23] MEDS: hydrALAZINE HCL 25 MG TABLET (FP) PO SCH ×4 (12:04→21:27)
[2017-12-23] MEDS: ONDANSETRON 4 MG/2 ML VIAL IVPUSH PRN ×2 (12:13→21:19)
[2017-12-23 12:15] LABS: ANISOCYTOSIS 1+; MACROCYTOSIS 0; PLATELET ESTIMATE NORMAL
--- NOTE | 2017-12-23 14:02 | PN ---
Progress Note (short form) - Note Progress Note: Reason for Consult: Hypertensive Urgency Attending Requesting Consult: Dr. Khan HPI: 57 year old female with past medical history significant for hypertension, hyperlipidemia, diabetes admitted with nausea, vomiting and epigastric pain found to have elevated blood pressure to 205/110 requiring admission to ICU for BP control. Cardiology consulted for further management. Patient in usual state of health until day of admission had nausea, non-bloody, non-billous emesis along with epigastric pain. CT-negative for PE and aortic dissection. She was ruled out for acute coronary syndrome with two negative troponins and ECG with no ischemic changes. 6.25mg BID She was admitted to the ICU and started on a nitroglycerin gtt with home medications restarted: amlodipine 5mg and carvediolol 6.25mg BID. Blood pressure has improved from 205/110-->179/102. Denies any lh, dizziness, syncope , blurry vision, chest pain, palpitations, orthopnea, PND or LISANDRA. Past Medical History HTN HL Past Surgical History: None Family Hx: NC Physical Exam Vital Signs 12/23/17 12/23/17 12/23/17 06:24 06:37 08:00 Pulse Rate 84 85 88 Respiratory 18 22 H Rate Blood Pressure 188/98 H 180/95 H 176/98 H O2 Sat by Pulse Oximetry (%) 12/23/17 12/23/17 12/23/17 08:30 09:00 10:00 Pulse Rate 98 H 100 H Respiratory 19 17 18 Rate Blood Pressure 168/95 208/104 H O2 Sat by Pulse 98 Oximetry (%) 12/23/17 12/23/17 12/23/17 11:00 12:00 13:00 Pulse Rate 96 H 103 H 92 H Respiratory 16 18 23 H Rate Blood Pressure 179/102 H 185/117 H 183/92 H O2 Sat by Pulse Oximetry (%) 12/23/17 13:20 Pulse Rate 88 Respiratory 22 H Rate Blood Pressure 130/77 O2 Sat by Pulse Oximetry (%) Gen: well appearing female sitting upright in NAD HEENT: NC/AT. OP Clear, MMM Cardiac: S1/S2 no murmurs Pulm: clear breath sounds bilaterally. No rales. Ext: WWP. No edema Labs: reviewed. A/P: 57 year old female with past medical history significant for hypertension, hyperlipidemia, diabetes admitted with nausea, vomiting and epigastric pain found to have elevated blood pressure to 205/110 requiring admission to ICU for BP control. Cardiology consulted for further management. #Hypertensive Urgency; stable MAP has been decreased to 25% within 24 hour hours. Etiology: unclear --troponin negative X2 --ECG no ischemic changes --nuclear stress test 2017: negative for ischemia Treatment: --continue to wean nitroglycerin gtt --start hydralazine 25mg TID (uptitrate to 50mg) for goal SBP <140 mmHg over next 24 hours --continue home amlodipine and carvediolol #Hypokalemia; ensure K+ is repleted to normal levels per primary team Jagdish Tang MD
--- NOTE | 2017-12-23 14:43 | PN ---
Progress Note (short form) - Note Progress Note: Pulm/CCM Pt seen and examined in ICU 24HR: -weaned off NTG -getting seen by surg re: fluid in abd, -wbc 17 on abx Current Medications Amlodipine Besylate (Norvasc -) 5 mg PO DAILY [facility] Carvedilol (Coreg -) 6.25 mg PO BID [facility] Last Admin: 12/23/17 09:03 Dose: 6.25 mg Chlorhexidine Gluconate (Hibiclens For Decolonization -) 1 applic TP HS [facility] Heparin Sodium (Porcine) (Heparin -) 5,000 unit SQ BID [facility] Last Admin: 12/23/17 09:03 Dose: 5,000 unit Hydralazine HCl (Apresoline -) 25 mg PO TID [facility] Last Admin: 12/23/17 12:04 Dose: 25 mg Nitroglycerin/Dextrose (Nitroglycerin 25mg/D5w 250ml) 25 mg in 250 mls @ 3 mls/ hr IVPB TITR [facility] Last Titration: 12/23/17 14:33 Dose: 0 mcg/min, 0 mls/hr Potassium Chloride/Sodium Chloride (1/2ns+20meq Kcl) 20 meq in 1,000 mls @ 50 mls/hr IV ASDIR [facility] Last Admin: 12/23/17 03:11 Dose: 50 mls/hr Metronidazole (Flagyl 500mg Premixed Ivpb -) 500 mg in 100 mls @ 100 mls/hr IVPB Q8H-IV [facility] Last Admin: 12/23/17 09:01 Dose: 100 mls/hr Levofloxacin (Levaquin 500 Mg Premixed Ivpb -) 500 mg in 100 mls @ 100 mls/hr IVPB DAILY [facility]; Protocol Famotidine/Sodium Chloride (Pepcid 20 Mg Premixed Ivpb -) 20 mg in 50 mls @ 100 mls/hr IVPB BID [facility] Insulin Aspart (Novolog Vial Sliding Scale -) 1 vial SQ ACHS [facility]; Protocol Last Admin: 12/23/17 12:07 Dose: 4 units Mupirocin (Bactroban Ointment (For Decolonization) -) 1 applic NS BID [facility] Stop: 12/28/17 09:59 Last Admin: 12/23/17 11:41 Dose: 1 applic Ondansetron HCl (Zofran Injection) 4 mg IVPUSH Q6H PRN PRN Reason: NAUSEA Last Admin: 12/23/17 12:13 Dose: 4 mg Vital Signs Temp 98.4 F 12/23/17 02:30 Pulse 75 12/23/17 14:30 Resp 20 12/23/17 14:30 BP 116/69 12/23/17 14:30 Pulse Ox 98 12/23/17 08:30 Intake & Output 12/22/17 12/23/17 12/23/17 23:59 11:59 23:59 Intake Total 725 269 Output Total 1400 500 Balance -675 -231 Weight 68.039 kg 68.039 kg 68.039 kg Intake: IV 225 69 1/2NS+20MEQ KCL 20 meq In 200 1,000 ml @ 50 mls/hr IV ASDIR [facility] Rx#:[id number] NITROGLYCERIN 25MG/D5W 25 69 250ML 25 mg In 250 ml @ 5 MCG/MIN 3 mls/hr IVPB TITR [facility] Rx#:[id number] Saline Lock 0 IVPB 500 100 Oral 100 Output: Urine 1400 400 Void 1400 400 Emesis 100 Other: Bowel Movement No Height 5 ft 4 in 5 ft 4 in 5 ft 4 in Body Mass Index (BMI) 25.7 25.7 25.7 Weight Measurement Method Estimated by Patient Weight Measurement Method Estimated by Staff CXR: reviewed abdpelvis ct scan reviewed: s/p Left Upper Lobectomy , uterus not visualised, left side 9cm , Right side 5 cm , bilateral large complex cysts, moderate free fluid in pelvic cavity . 12/23/17 sono . Ut not identified Rt ovarian cyst 7.8x5x5.1 cm , Left Ovary 11.1x5.6x9.6 cm . bilateral septate cystes with debri , free fluid in pelvis. PE: Gen: awake, no focal, INAD HEENT: PERRL,no photophobia, no HE PULM: Clear bilaterally CV: RRR, no m.r.g appreciated ABD: soft, mild tenderness more in LLQ but somewhat diffusely EXT: no edema, well perfused NEURO: nonfocal, 5/5 all 4 A/ 57 y/o woman hx of uterine fibrodes, Lung CA s/p pneumonectomy admitted to ICU with hypertensive urgency, found to have some free fluid in abd and ovarian cysts being worked up by surg/OBGYN P/ -off NTG gtt, uptitrate po meds as needed -workup as per OBGYN for pelvic fluid/ovaian cysts -DVT prophy - ok for floor bed [place] ACNP
--- NOTE | 2017-12-23 14:43 | CON.OBG ---
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 for management . work up reveals : 12/23/[address] scan : s/p Left Upper Lobectomy , uterus not visualised, left side 9cm , Right side 5 cm , bilateral large complex cysts, moderate free fluid in pelvic cavity . 12/23/17 sono . Ut not identified Rt ovarian cyst 7.8x5x5.1 cm , Left Ovary 11.1x5.6x9.6 cm . bilateral septate cystes with debri , free fluid in pelvis. 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 [facility] with X Ray Consultant MD 2 years ago sexually active , last 1 month ago , sometimes experience soreness mammogram 2 years ago normal as per patient colonoscopy done few years ago - History Source History Provided By: Patient, Medical Record Limitations to Obtaining History: No Limitations - Past Medical History Cardio/Vascular: Yes: CAD (reported prior [place] 2006 treated medically), HTN Pulmonary: Yes: Other (h/o Left Upper lobe Lung cancer , s/p resection ( 2014) , chemotherapy & radiation as per resident notes ) Gastrointestinal: Yes: Diverticulitis Reproductive: Yes: Fibroids (viktoria done ), Postmenopausal (surgical menopause 1994 ) ...: No ...: 1 ...Para: 1 ( 1979) Heme/Onc: Yes: Other (h/o chemotherapy ) Endocrine: Yes: Diabetes Mellitus - Past Surgical History Past Surgical History: Yes: Hysterectomy Additional Surgical History: left lung upper ;Lobe resction 2014 at [facility] - Alcohol/Substance Use Hx Alcohol Use: No History of Substance Use: reports: Marijuana - Smoking History Smoking history: Former smoker Have you smoked in the past 12 months: No Aproximately how many cigarettes per day: 1 If you are a former smoker, when did you quit?: 2014 - Social History Usual Living Arrangement: With Spouse ADL: Independent History of Recent Travel: No Home Medications - Allergies Allergies/Adverse Reactions: Allergies Allergy/AdvReac Type Severity Reaction Status Date / Time No Known Allergies Allergy Verified 12/22/17 22:20 - Home Medications Home Medications: Ambulatory Orders metFORMIN HCL [Metformin HCl] 500 mg PO BID 05/02/16 Amox-Tr/K Cl [Augmentin - 875Mg Tablet] 1 tab PO BID #14 tablet 08/30/17 Amlodipine Besylate [Norvasc -] 5 mg PO DAILY 12/23/17 Family Disease History - Family Disease History Family Disease History: Diabetes: Father, Mother Review of Systems - Review of Systems Constitutional: reports: Loss of Appetite Respiratory: reports: SOB Gastrointestinal: reports: Abdominal Pain (epigastric pain), Nausea, Vomiting Genitourinary: reports: No Symptoms Breasts: reports: No Symptoms Reported Musculoskeletal: reports: No Symptoms Integumentary: reports: No Symptoms Neurological: reports: No Symptoms Hematology/Lymphatic: reports: No Symptoms Psychiatric: reports: No Symptoms 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 Vital Signs: Vital Signs Temperature 98.4 F 12/23/17 02:30 Pulse Rate 77 12/23/17 14:00 Respiratory Rate 22 H 12/23/17 14:00 Blood Pressure 122/74 12/23/17 14:00 O2 Sat by Pulse Oximetry (%) 98 12/23/17 08:30 Selected Entries 12/22/17 12/22/17 12/22/17 21:55 22:14 22:45 Temperature 97.4 F L Blood Pressure 205/115 H Blood Pressure 205/115 H 205/110 H [Left Arm] Weight 150 lb 12/22/17 12/23/17 22:47 12:03 Temperature Blood Pressure Blood Pressure 177/97 H [Left Arm] Weight 150 lb Constitutional: Yes: Other (pt is drowsy, responsive, orinted in time & space ansswers to commands.) Eyes: Yes: WNL Cardiovascular: Yes: Other (not examined) Respiratory: Yes: On Nasal O2, Other (not checked) Gastrointestinal: Yes: Distention (lower abdomen), Tenderness (lower abdomen). No: Tenderness, Rebound ...Rectal Exam: Yes: Sphincter Tone Normal, Other (mass anterior to rectum) Renal/: No: CVA Tenderness - Left, CVA Tenderness - Right Pelvis: Yes: Mass (pallpable just below umblicus), Tenderness External Genitalia: Yes: Normal Internal Exam Deferred: Yes Vaginal Exam: Yes: Normal Cervix: Yes: Other (no felt) Uterus: Yes: Other (not palpable s/p VIKTORIA) Adnexa: Tender: Bilateral (mild tenderness, discomfort ), Mass: Bilateral (mass palpble soft extending from right to left adnexa, unable to diffrntiate two differnt masses , ) Breast(s): Yes: WNL. No: Mass Extremities: No: Calf Tenderness Edema: No Integumentary: Yes: Incision (pfannensteil scar) Neurological: Yes: WNL, Other (drowsy) ...Motor Strength: WNL Psychiatric: Yes: WNL, Alert, Oriented Labs: CBC, BMP 12/23/17 05:30 12/23/17 05:30 Laboratory Tests 12/22/17 12/23/17 12/23/17 23:25 00:34 05:30 AST 11 L ALT 16 Alkaline Phosphatase 121 H Creatine Kinase Troponin I Total Protein 8.5 H Albumin 3.5 Urine Protein 2+ H Urine Glucose (UA) 3+ H Urine Ketones 2+ H Urine Blood 1+ H Urine WBC (Auto) <1 Urine RBC (Auto) 11 Opiates Screen Positive A* U Marijuana (THC) Screen Positive A* 12/23/17 05:30 AST ALT Alkaline Phosphatase Creatine Kinase 77 Troponin I < 0.02 Total Protein Albumin Urine Protein Urine Glucose (UA) Urine Ketones Urine Blood Urine WBC (Auto) Urine RBC (Auto) Opiates Screen U Marijuana (THC) Screen Problem List - Problems (1) Bilateral ovarian cysts Code(s): N83.201 - UNSPECIFIED OVARIAN CYST, RIGHT SIDE; N83.202 - UNSPECIFIED OVARIAN CYST, LEFT SIDE (2) Diverticulitis large intestine w/o perforation or abscess w/o bleeding Code(s): K57.32 - DVTRCLI OF LG INT W/O PERFORATION OR ABSCESS W/O BLEEDING (3) Hypertensive urgency Code(s): I16.0 - HYPERTENSIVE URGENCY (4) Diabetes Code(s): E11.9 - TYPE 2 DIABETES MELLITUS WITHOUT COMPLICATIONS Qualifiers: Diabetes mellitus type: type 2 Chronic kidney disease stage: unspecified stage (5) History of lung cancer Code(s): Z85.118 - PERSONAL HISTORY OF MALIGNANT NEOPLASM OF BRONCHUS AND LUNG (6) Hypertension Code(s): I10 - ESSENTIAL (PRIMARY) HYPERTENSION Qualifiers: Hypertension type: unspecified Qualified Code(s): I10 - Essential (primary ) hypertension (7) Hypokalemia Code(s): E87.6 - HYPOKALEMIA Assessment/Plan 57 yrs old , s/p VIKTORIA , noted to have bialteral large ovarian cysts complex with free fluid in pelvis ( possible ascites ) Possible neoplasm can not be ruled out ( because complex , bilateral,& free fluids , h/o lung ca in past ) diff diagnosis, benign cysts with rupure h/o lung cancer s/p resection, chemo & radiation therapy h/o Hypertnsion crisis, on iv nitroglycerine drip , Coreg, Norvas, Diabetes, on insiln, diverticulitis rx iv metrnidazole, levaquin hypokalemia , on K replacement . Plan recommend referal to X Ray Consultant Oncologist , Dr Francine Griffin ) , she comes to hosp alt Monday please inform her office After medically cleared , she will need Exp Lap . excision of cystes & paraaortic & pelvic lyphadenectomy or sampling ( even ct scan shows no lymph nodes enlarged ) . Ovarian cancer markers ( BIANCA ) recommended
--- NOTE | 2017-12-23 15:24 | HP ---
Admitting History and Physical - Admission History of Present Illness: 57 y/o female w/ PMH significant for HTN, DM, lung Ca s/p resection, chemo and radiation (2016), and diverticulosis who came to er because of pain in epigastric area and vomiting since yesterday. Pt states that yesterday after having lunch ( ) she had vomiting and later later on pain in epigastric area. Vomit consist of food particles, reports have couple of episodes of vomiting, no blood in vomit. Stats pain started after vomiting 10/10 in intensity, non radiating, increases with food and nothing makes it better, burning/ sharp in quality, constant. Reports she smokes weed every day and last time smoked on 2 days ago. Denies use of pain meds, alcohol, spicy food. Denies yellow discoloration of eyes, urine and skin. Patients states she takes 2.5mg of norvasc and recently increased to 5mg. In the ER pt found to have accelereated HTN and was started on IV nitro drip and admitted to the ICU. - Past Medical History Cardiovascular: Yes: CAD (reported prior [place] 2006 treated medically), HTN Pulmonary: Yes: Other (h/o Left Upper lobe Lung cancer , s/p resection ( 2014) , chemotherapy & radiation as per resident notes ) Gastrointestinal: Yes: Diverticulitis ...: No ...: 1 ...Para: 1 ( 1979) Heme/Onc: Yes: Other (h/o chemotherapy ) Endocrine: Yes: Diabetes Mellitus - Past Surgical History Past Surgical History: Yes: Hysterectomy - Smoking History Smoking history: Former smoker Have you smoked in the past 12 months: No Aproximately how many cigarettes per day: 1 If you are a former smoker, when did you quit?: 2015 - Alcohol/Substance Use Hx Alcohol Use: No History of Substance Use: reports: Marijuana - Social History ADL: Independent History of Recent Travel: No Home Medications - Allergies Allergies/Adverse Reactions: Allergies Allergy/AdvReac Type Severity Reaction Status Date / Time No Known Allergies Allergy Verified 12/22/17 22:20 - Home Medications Home Medications: Ambulatory Orders metFORMIN HCL [Metformin HCl] 500 mg PO BID 05/02/16 Amlodipine Besylate [Norvasc -] 5 mg PO DAILY 12/23/17 Amlodipine Besylate [Norvasc -] 5 mg PO DAILY #30 tablet 12/27/17 Carvedilol [Coreg -] 12.5 mg PO BID #60 tablet 12/27/17 Ranitidine [Zantac -] 150 mg PO BID #60 tablet 12/27/17 hydrALAZINE HCL [Apresoline -] 25 mg PO TID #90 tablet 12/27/17 Family Disease History - Family Disease History Family Disease History: Diabetes: Father, Mother Physical Examination Vital Signs: Vital Signs Temperature 98.4 F 12/23/17 02:30 Pulse Rate 75 12/23/17 14:30 Respiratory Rate 20 12/23/17 14:30 Blood Pressure 116/69 12/23/17 14:30 O2 Sat by Pulse Oximetry (%) 98 12/23/17 08:30 Labs: CBC, BMP 12/23/17 05:30 12/23/17 05:30
[2017-12-23] MEDS: amLODIPine BESYLATE 5 MG TABLET (FP) PO SCH (18:10)
--- NOTE | 2017-12-23 18:46 | CON.ID ---
Consult Consult Specialty:: infectious diseases Referred by:: dr Plascencia Reason for Consultation:: leukocytosis,sepsis - History of Present Illness Chief Complaint: abd pain History of Present Illness: 57yo female PMH AL (2006), HTN (not compliant with medication), Lung CA s/p resection, chemo, and radiation, admitted with nausea and vomiting. The patient presents with 1 day of nausea and NBNB vomiting and a single episode of diarrhea yesterday. The patient reports associated symptoms of sharp, burning lower abdominal pain. Denies fever, chills, chest pain, shortness of breath, sick contact or recent illness. Ct scan shows free fluid in the pelvis and complex ovarian cystic changes. We were asked to assess. patient was also found to be in hypertensive emergency and currently in the ICU she still c/o of abd pain and says sometimes it is quite severe - History Source History Provided By: Patient Limitations to Obtaining History: No Limitations - Past Medical History Cardio/Vascular: Yes: CAD (reported prior [place] 2006 treated medically), HTN Pulmonary: Yes: Other (h/o Left Upper lobe Lung cancer , s/p resection ( 2014) , chemotherapy & radiation as per resident notes ) Gastrointestinal: Yes: Diverticulitis ...: No Endocrine: Yes: Diabetes Mellitus - Past Surgical History Past Surgical History: Yes: Hysterectomy Additional Surgical History: left lung upper ;Lobe resction 2014 at [facility] - Alcohol/Substance Use Hx Alcohol Use: No History of Substance Use: reports: Marijuana - Smoking History Smoking history: Former smoker Have you smoked in the past 12 months: No Aproximately how many cigarettes per day: 1 If you are a former smoker, when did you quit?: 2014 - Social History Usual Living Arrangement: With Spouse ADL: Independent History of Recent Travel: No Home Medications - Allergies Allergies/Adverse Reactions: Allergies Allergy/AdvReac Type Severity Reaction Status Date / Time No Known Allergies Allergy Verified 12/22/17 22:20 - Home Medications Home Medications: Ambulatory Orders RX: metFORMIN HCL [Metformin HCl] 500 mg PO BID 05/02/16 RX: Amlodipine Besylate [Norvasc -] 5 mg PO DAILY 12/23/17 RX: Amlodipine Besylate [Norvasc -] 5 mg PO DAILY #30 tablet 12/27/17 RX: Carvedilol [Coreg -] 12.5 mg PO BID #60 tablet 12/27/17 RX: Ranitidine [Zantac -] 150 mg PO BID #60 tablet 12/27/17 RX: hydrALAZINE HCL [Apresoline -] 25 mg PO TID #90 tablet 12/27/17 Family Disease History - Family Disease History Family Disease History: Diabetes: Father, Mother Review of Systems - Review of Systems Constitutional: reports: No Symptoms Eyes: reports: No Symptoms HENT: reports: No Symptoms Neck: reports: No Symptoms Cardiovascular: reports: No Symptoms Respiratory: reports: No Symptoms Gastrointestinal: reports: Abdominal Pain (lower quadrants) Genitourinary: reports: Burning, Dysuria Musculoskeletal: reports: No Symptoms, Muscle Cramps Neurological: reports: No Symptoms Endocrine: reports: No Symptoms Hematology/Lymphatic: reports: No Symptoms Psychiatric: reports: No Symptoms Physical Exam Vital Signs: Vital Signs Temperature 98.4 F 12/23/17 02:30 Pulse Rate 75 12/23/17 14:30 Respiratory Rate 20 12/23/17 14:30 Blood Pressure 116/69 12/23/17 14:30 O2 Sat by Pulse Oximetry (%) 98 12/23/17 08:30 Labs: CBC, BMP 12/23/17 05:30 12/23/17 05:30 Imaging - Results Chest X-ray: Report Reviewed, Image Reviewed Cat Scan: Report Reviewed, Image Reviewed Assessment/Plan Hypertensive Emergency Hx of uterine fibroids History of Lung CA S/P Pneumonectomy HTN by history Imaging: Right side 5 cm , bilateral large complex cysts, moderate free fluid in pelvic cavity leukocytosis after looking at the ct and the findings i am worried if there infection in the cyst of the ovaries which is complex have seen all the ct scan plan will start patient on abx 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
[2017-12-23] MEDS ORDERED: PIPERACILLIN/TAZOBACTAM 3.375 GM VIAL IVPB ONE ×2 (19:51→23:57)
[2017-12-23] MEDS ORDERED: DEXTROSE 5%-WATER - 50 ML IVPB ONE ×2 (19:52→23:58)
[2017-12-23] MEDS: PIPERACILLIN/TAZOB 3.375 GM 3.375 GM in DEXTROSE 5%-WATER - 50 ML IVPB SCH (20:06)
[2017-12-23 20:25] LABS: URINE APPEARANCE CLEAR; URINE BILIRUBIN NEGATIVE (<2.0 mg/dL); URINE COLOR YELLOW; URINE GLUCOSE (UA) NEGATIVE (NEGATIVE); URINE KETONE 1+ (NEGATIVE); URINE LEUK ESTERASE NEGATIVE (NEGATIVE); URINE NITRITE NEGATIVE (NEGATIVE); URINE PROTEIN 3+ (NEGATIVE); URINE UROBILINOGEN NEGATIVE mg/dL (0.2-1.0)
[2017-12-23 20:35] LABS: EPI CELLS RARE /HPF (FEW); URINE HYALINE CAST 3 /lpf; URINE MUCUS RARE
[2017-12-23] MEDS: FAMOTIDINE 20 MG/50 ML IVPB 20 MG/50 ML MG IVPB SCH (21:26)
[2017-12-23] MEDS ORDERED: hydrALAZINE HCL 20 MG/ML VIAL IVPUSH ONE (22:01)
[2017-12-23] MEDS: CHLORHEXIDINE GLUCONATE 4% CLEANSER FOR DECOLONIZATION TP SCH (23:55)
[2017-12-24] MEDS: PIPERACILLIN/TAZOB 3.375 GM 3.375 GM in DEXTROSE 5%-WATER - 50 ML IVPB SCH ×3 (01:53→17:20)
[2017-12-24] MEDS: ONDANSETRON 4 MG/2 ML VIAL IVPUSH PRN ×3 (01:54→19:52)
[2017-12-24] MEDS: SODIUM CHLORIDE 0.45%/POT 20 MEQ/1,000 ML INFUS.BAG IV SCH (03:03)
[2017-12-24] MEDS: NITROGLYCERIN 25MG/D5W 250ML 25 MG/250 ML ML IVPB SCH (03:03)
[2017-12-24 05:57] LABS: BASO % 0.3 % (0-2.0); EOS % 0.1 % (0-4.5); HEMATOCRIT 40.3 % (32.4-45.2); HEMOGLOBIN 13.4 GM/dL (10.7-15.3); LYMPH % 5.9 % (8-40); MCH 29.2 pg (25.7-33.7); MCHC 33.1 g/dl (32.0-36.0); MEAN PLT VOLUME 9.2 fl (7.5-11.1); MONO % 3.6 % (3.8-10.2); NEUT % 90.1 % (42.8-82.8); PLATELET COUNT 312 K/MM3 (134-434); RBC 4.58 M/mm3 (3.60-5.2); RDW 14.5 % (11.6-15.6); WHITE BLOOD COUNT 16.8 K/mm3 (4.0-10.0)
[2017-12-24] MEDS: INSULIN SLIDING SCALE (NOVOLOG) 1 VIAL SQ SCH ×2 (07:35→11:25)
[2017-12-24] MEDS: hydrALAZINE HCL 25 MG TABLET (FP) PO SCH ×3 (07:38→21:48)
[2017-12-24 07:58] LABS: ALBUMIN 3.3 g/dl (3.4-5.0); ALK PHOS 111 U/L (45-117); ANION GAP 13 MMOL/L (8-16); BILIRUBIN,TOTAL 0.7 mg/dL (0.2-1); BLOOD UREA NITROGEN 25 mg/dL (7-18); CALCIUM 9.1 mg/dL (8.5-10.1); CHLORIDE 95 mmol/L (98-107); CO2 26 mmol/L (21-32); GLUCOSE,RANDOM 177 mg/dL (74-106); SGOT/AST 16 U/L (15-37); SGPT/ALT 12 U/L (13-61); SODIUM 134 mmol/L (136-145); TOT PROT 8.2 g/dl (6.4-8.2)
[2017-12-24 08:05] LABS: POTASSIUM 2.9 mmol/L (3.5-5.1)
[2017-12-24] MEDS ORDERED: POTASSIUM CHLORIDE TABS 20 MEQ TABLET.ER (FP) PO ONE (08:05)
[2017-12-24] MEDS: KCL 10 MEQ IVPB 10 MEQ/100 ML INFUS.BAG IVPB SCH ×2 (08:18→09:46)
[2017-12-24] MEDS ORDERED: DEXTROSE 5%-WATER - 50 ML IVPB ONE (10:20)
[2017-12-24] MEDS ORDERED: PIPERACILLIN/TAZOBACTAM 3.375 GM VIAL IVPB ONE ×2 (10:20→16:41)
[2017-12-24] MEDS: CARVEDILOL 6.25 MG TABLET (FP) PO SCH ×2 (10:22→21:49)
[2017-12-24] MEDS: amLODIPine BESYLATE 5 MG TABLET (FP) PO SCH (10:22)
[2017-12-24] MEDS: FAMOTIDINE 20 MG/50 ML IVPB 20 MG/50 ML MG IVPB SCH ×2 (10:50→22:00)
[2017-12-24] MEDS: MUPIROCIN 2% TOPICAL OINTMENT FOR DECOLONIZATION NS SCH ×2 (10:53→21:48)
--- NOTE | 2017-12-24 11:06 | PN ---
Progress Note (short form) - Note Progress Note: Pulm/CCM Pt seen and examined in ICU 24HR: -remains off NTG gtt, BP elevated but stable -no complaints this am -OOB to chair today -afebrile Active Medications Amlodipine Besylate (Norvasc -) 5 mg PO DAILY [facility] Last Admin: 12/24/17 10:22 Dose: 5 mg Carvedilol (Coreg -) 6.25 mg PO BID [facility] Last Admin: 12/24/17 10:22 Dose: 6.25 mg Chlorhexidine Gluconate (Hibiclens For Decolonization -) 1 applic TP HS [facility] Last Admin: 12/23/17 23:55 Dose: 1 applic Heparin Sodium (Porcine) (Heparin -) 5,000 unit SQ BID [facility] Last Admin: 12/23/17 21:26 Dose: 5,000 unit Hydralazine HCl (Apresoline -) 25 mg PO TID [facility] Last Admin: 12/24/17 07:38 Dose: 25 mg Hydralazine HCl (Apresoline Injection -) 10 mg IVPUSH Q6H PRN PRN Reason: HYPERTENSION Nitroglycerin/Dextrose (Nitroglycerin 25mg/D5w 250ml) 25 mg in 250 mls @ 3 mls/ hr IVPB TITR [facility] Last Admin: 12/24/17 03:03 Dose: Not Given Potassium Chloride/Sodium Chloride (1/2ns+20meq Kcl) 20 meq in 1,000 mls @ 50 mls/hr IV ASDIR [facility] Last Admin: 12/24/17 03:03 Dose: Not Given Metronidazole (Flagyl 500mg Premixed Ivpb -) 500 mg in 100 mls @ 100 mls/hr IVPB Q8H-IV [facility] Last Admin: 12/24/17 10:23 Dose: 100 mls/hr Levofloxacin (Levaquin 500 Mg Premixed Ivpb -) 500 mg in 100 mls @ 100 mls/hr IVPB DAILY [facility]; Protocol Last Admin: 12/23/17 20:08 Dose: 100 mls/hr Famotidine/Sodium Chloride (Pepcid 20 Mg Premixed Ivpb -) 20 mg in 50 mls @ 100 mls/hr IVPB BID [facility] Last Admin: 12/24/17 10:50 Dose: 100 mls/hr Piperacillin Sod/Tazobactam (Sod 3.375 gm/ Dextrose) 50 mls @ 100 mls/hr IVPB Q8H-IV [facility]; Protocol Last Admin: 12/24/17 01:53 Dose: 100 mls/hr Insulin Aspart (Novolog Vial Sliding Scale -) 1 vial SQ ACHS [facility]; Protocol Last Admin: 12/24/17 07:35 Dose: Not Given Mupirocin (Bactroban Ointment (For Decolonization) -) 1 applic NS BID [facility] Stop: 12/28/17 09:59 Last Admin: 12/24/17 10:53 Dose: 1 applic Ondansetron HCl (Zofran Injection) 4 mg IVPUSH Q6H PRN PRN Reason: NAUSEA Last Admin: 12/24/17 08:19 Dose: 4 mg Vital Signs Temperature 98 F 12/24/17 10:00 Pulse Rate 75 12/24/17 11:00 Respiratory Rate 22 H 12/24/17 11:00 Blood Pressure 171/82 H 12/24/17 11:00 O2 Sat by Pulse Oximetry (%) 100 12/24/17 08:03 Intake & Output 12/23/17 12/24/17 12/24/17 23:59 07:59 15:59 Intake Total 1655 600 Output Total 300 700 Balance 1355 -100 Weight 52.072 kg CXR: reviewed abdpelvis ct scan reviewed: s/p Left Upper Lobectomy , uterus not visualised, left side 9cm , Right side 5 cm , bilateral large complex cysts, moderate free fluid in pelvic cavity . 12/23/17 sono . Ut not identified Rt ovarian cyst 7.8x5x5.1 cm , Left Ovary 11.1x5.6x9.6 cm . bilateral septate cystes with debri , free fluid in pelvis. PE: Gen: awake, no focal, INAD HEENT: PERRL,no photophobia, no HE PULM: Clear bilaterally CV: RRR, no m.r.g appreciated ABD: soft, mild tenderness more in LLQ but somewhat diffusely EXT: no edema, well perfused NEURO: nonfocal, 5/5 all 4 A/ 57 y/o woman hx of uterine fibrodes, Lung CA s/p pneumonectomy admitted to ICU with hypertensive urgency, found to have some free fluid in abd and ovarian cysts being worked up by surg/OBGYN P/ -uptitrate po meds as needed -workup as per OBGYN for pelvic fluid/ovaian cysts, R/o CA (CA-125 etc in lab) -on zosyn, follow cxl, can likely D.c if negative. -DVT prophy - ok for floor bed Del [facility] [id number]
[2017-12-24] MEDS: HEPARIN NA (PORCINE) 5,000 UNITS/ML 1ML VIAL SQ SCH ×2 (11:20→22:00)
--- NOTE | 2017-12-24 12:59 | PN ---
Progress Note (short form) - Note Progress Note: Subjective: ID: 57 year old female with past medical history significant for hypertension, hyperlipidemia, diabetes admitted with nausea, vomiting and epigastric pain found to have hypertensive urgency with brief requirement of nitroglycerin gtt currently hemodynamically stable off of nitro gtt and on oral medications. No acute overnight events. Objective: Vital Signs 12/24/17 12/24/17 12/24/17 05:00 06:00 08:00 Temperature Pulse Rate 78 73 70 Respiratory 15 15 21 H Rate Blood Pressure 178/85 H 188/81 H 194/88 H O2 Sat by Pulse Oximetry (%) 12/24/17 12/24/17 12/24/17 08:03 09:00 10:00 Temperature 98 F Pulse Rate 76 82 Respiratory 20 20 Rate Blood Pressure 195/78 H 183/89 H O2 Sat by Pulse 100 Oximetry (%) 12/24/17 11:00 Temperature Pulse Rate 75 Respiratory 22 H Rate Blood Pressure 171/82 H O2 Sat by Pulse Oximetry (%) Gen: well appearing female sitting upright in NAD HEENT: NC/AT. OP Clear, MMM Cardiac: S1/S2 no murmurs Pulm: clear breath sounds bilaterally. No rales. Ext: WWP. No edema Labs: reviewed. Laboratory Results - last 24 hr 12/23/17 12/23/17 12/23/17 17:41 18:25 23:26 WBC RBC Hgb Hct MCV MCH MCHC RDW Plt Count MPV Absolute Neuts (auto) Neutrophils % Lymphocytes % Monocytes % Eosinophils % Basophils % Nucleated RBC % Sodium Potassium Chloride Carbon Dioxide Anion Gap BUN Creatinine Creat Clearance w eGFR POC Glucometer [phone] Random Glucose Calcium Total Bilirubin AST ALT Alkaline Phosphatase Creatine Kinase Troponin I Total Protein Albumin Urine Color Yellow Urine Appearance Clear Urine pH 6.0 D Ur Specific [place] 1.015 Urine Protein 3+ H Urine Glucose (UA) Negative Urine Ketones 1+ H Urine Blood 1+ H Urine Nitrite Negative Urine Bilirubin Negative Urine Urobilinogen Negative Ur Leukocyte Esterase Negative Urine WBC (Auto) 3 Urine RBC (Auto) 3 Ur Epithelial Cells Rare Hyaline Casts 3 Urine Mucus Rare 12/24/17 12/24/17 12/24/17 05:30 05:30 05:30 WBC 16.8 H RBC 4.58 Hgb 13.4 Hct 40.3 MCV 88.0 MCH 29.2 MCHC 33.1 RDW 14.5 Plt Count 312 MPV 9.2 Absolute Neuts (auto) 15.2 H Neutrophils % 90.1 H Lymphocytes % 5.9 L D Monocytes % 3.6 L D Eosinophils % 0.1 D Basophils % 0.3 Nucleated RBC % 0 Sodium 134 L Potassium 2.9 L* Chloride 95 L Carbon Dioxide 26 Anion Gap 13 BUN 25 H Creatinine 1.0 Creat Clearance w eGFR 56.75 POC Glucometer Random Glucose 177 H Calcium 9.1 Total Bilirubin 0.7 AST 16 ALT 12 L Alkaline Phosphatase 111 Creatine Kinase Cancelled 69 Troponin I Cancelled 0.02 Total Protein 8.2 Albumin 3.3 L Urine Color Urine Appearance Urine pH Ur Specific [place] Urine Protein Urine Glucose (UA) Urine Ketones Urine Blood Urine Nitrite Urine Bilirubin Urine Urobilinogen Ur Leukocyte Esterase Urine WBC (Auto) Urine RBC (Auto) Ur Epithelial Cells Hyaline Casts Urine Mucus 12/24/17 12/24/17 05:30 11:19 WBC RBC Hgb Hct MCV MCH MCHC RDW Plt Count MPV Absolute Neuts (auto) Neutrophils % Lymphocytes % Monocytes % Eosinophils % Basophils % Nucleated RBC % Sodium Potassium Chloride Carbon Dioxide Anion Gap BUN Creatinine Creat Clearance w eGFR POC Glucometer 181.57493 122.19672 Random Glucose Calcium Total Bilirubin AST ALT Alkaline Phosphatase Creatine Kinase Troponin I Total Protein Albumin Urine Color Urine Appearance Urine pH Ur Specific [place] Urine Protein Urine Glucose (UA) Urine Ketones Urine Blood Urine Nitrite Urine Bilirubin Urine Urobilinogen Ur Leukocyte Esterase Urine WBC (Auto) Urine RBC (Auto) Ur Epithelial Cells Hyaline Casts Urine Mucus A/P: 57 year old female with past medical history significant for hypertension, hyperlipidemia, diabetes admitted with nausea, vomiting and epigastric pain found to have elevated blood pressure to 205/110 requiring admission to ICU for BP control. Cardiology consulted for further management. #Hypertensive Urgency; off nitro gtt but BP elevated this AM SBPs in 190s Etiology: unclear --troponin negative X2 --ECG no ischemic changes --nuclear stress test 2017: negative for ischemia Treatment: --off of nitroglycerin gtt --increase hydralazine 25-->50mg TID (increase to 75mg in next 24 hours if SBP >140 mmHg --continue home amlodipine and carvediolol #Hypokalemia; ensure K+ is repleted to normal levels per primary team #Leukocytosis: management per primary team Jagdish Tang MD
--- NOTE | 2017-12-24 13:54 | PN ---
Progress Note, Physician History of Present Illness: continues to feel better abd pain improved wbc still quite high - Current Medication List Current Medications: Active Medications Amlodipine Besylate (Norvasc -) 5 mg PO DAILY [facility] Last Admin: 12/24/17 10:22 Dose: 5 mg Carvedilol (Coreg -) 6.25 mg PO BID [facility] Last Admin: 12/24/17 10:22 Dose: 6.25 mg Chlorhexidine Gluconate (Hibiclens For Decolonization -) 1 applic TP HS [facility] Last Admin: 12/23/17 23:55 Dose: 1 applic Heparin Sodium (Porcine) (Heparin -) 5,000 unit SQ BID [facility] Last Admin: 12/24/17 11:20 Dose: 5,000 unit Hydralazine HCl (Apresoline -) 25 mg PO TID [facility] Last Admin: 12/24/17 07:38 Dose: 25 mg Hydralazine HCl (Apresoline Injection -) 10 mg IVPUSH Q6H PRN PRN Reason: HYPERTENSION Potassium Chloride/Sodium Chloride (1/2ns+20meq Kcl) 20 meq in 1,000 mls @ 50 mls/hr IV ASDIR [facility] Last Admin: 12/24/17 03:03 Dose: Not Given Metronidazole (Flagyl 500mg Premixed Ivpb -) 500 mg in 100 mls @ 100 mls/hr IVPB Q8H-IV [facility] Last Admin: 12/24/17 10:23 Dose: 100 mls/hr Famotidine/Sodium Chloride (Pepcid 20 Mg Premixed Ivpb -) 20 mg in 50 mls @ 100 mls/hr IVPB BID [facility] Last Admin: 12/24/17 10:50 Dose: 100 mls/hr Piperacillin Sod/Tazobactam (Sod 3.375 gm/ Dextrose) 50 mls @ 100 mls/hr IVPB Q8H-IV [facility]; Protocol Last Admin: 12/24/17 11:21 Dose: 100 mls/hr Insulin Aspart (Novolog Vial Sliding Scale -) 1 vial SQ ACHS [facility]; Protocol Last Admin: 12/24/17 11:25 Dose: Not Given Mupirocin (Bactroban Ointment (For Decolonization) -) 1 applic NS BID [facility] Stop: 12/28/17 09:59 Last Admin: 12/24/17 10:53 Dose: 1 applic Ondansetron HCl (Zofran Injection) 4 mg IVPUSH Q6H PRN PRN Reason: NAUSEA Last Admin: 12/24/17 08:19 Dose: 4 mg - Objective Vital Signs: Vital Signs Temperature 98 F 12/24/17 10:00 Pulse Rate 78 12/24/17 13:00 Respiratory Rate 22 H 12/24/17 13:00 Blood Pressure 137/78 12/24/17 13:00 O2 Sat by Pulse Oximetry (%) 100 12/24/17 08:03 Constitutional: Yes: No Distress, Calm Cardiovascular: Yes: Regular Rate and Rhythm Respiratory: Yes: Regular, CTA Bilaterally Gastrointestinal: Yes: Normal Bowel Sounds, Soft Musculoskeletal: Yes: WNL Extremities: Yes: WNL Neurological: Yes: Alert, Oriented Psychiatric: Yes: Alert, Oriented Labs: CBC, BMP 12/24/17 05:30 12/24/17 05:30 INR, PTT INR 0.98 (0.83-1.09) 12/22/17 23:15 - ....Imaging Chest X-ray: Report Reviewed, Image Reviewed Assessment/Plan Hypertensive Emergency Hx of uterine fibroids History of Lung CA S/P Pneumonectomy HTN by history Imaging: Right side 5 cm , bilateral large complex cysts, moderate free fluid in pelvic cavity leukocytosis 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
[2017-12-24] MEDS ORDERED: DEXTROSE 5%-WATER - 100 ML IVPB ONE (16:41)
[2017-12-24 18:45] LABS: ANION GAP 12 MMOL/L (8-16); BLOOD UREA NITROGEN 27 mg/dL (7-18); CALCIUM 9.1 mg/dL (8.5-10.1); CHLORIDE 98 mmol/L (98-107); CO2 26 mmol/L (21-32); CREATININE 1.2 mg/dL (0.55-1.3); GLUCOSE,RANDOM 119 mg/dL (74-106); SODIUM 136 mmol/L (136-145)
--- NOTE | 2017-12-24 23:38 | PN ---
Progress Note, Physician - Current Medication List Current Medications: Active Medications Amlodipine Besylate (Norvasc -) 5 mg PO DAILY [facility] Last Admin: 12/24/17 10:22 Dose: 5 mg Carvedilol (Coreg -) 6.25 mg PO BID [facility] Last Admin: 12/24/17 21:49 Dose: 6.25 mg Chlorhexidine Gluconate (Hibiclens For Decolonization -) 1 applic TP HS [facility] Last Admin: 12/23/17 23:55 Dose: 1 applic Heparin Sodium (Porcine) (Heparin -) 5,000 unit SQ BID [facility] Last Admin: 12/24/17 11:20 Dose: 5,000 unit Hydralazine HCl (Apresoline -) 25 mg PO TID [facility] Last Admin: 12/24/17 21:48 Dose: 25 mg Hydralazine HCl (Apresoline Injection -) 10 mg IVPUSH Q6H PRN PRN Reason: HYPERTENSION Potassium Chloride/Sodium Chloride (1/2ns+20meq Kcl) 20 meq in 1,000 mls @ 50 mls/hr IV ASDIR [facility] Last Admin: 12/24/17 03:03 Dose: Not Given Metronidazole (Flagyl 500mg Premixed Ivpb -) 500 mg in 100 mls @ 100 mls/hr IVPB Q8H-IV [facility] Last Admin: 12/24/17 17:18 Dose: 100 mls/hr Famotidine/Sodium Chloride (Pepcid 20 Mg Premixed Ivpb -) 20 mg in 50 mls @ 100 mls/hr IVPB BID [facility] Last Admin: 12/24/17 10:50 Dose: 100 mls/hr Piperacillin Sod/Tazobactam (Sod 3.375 gm/ Dextrose) 50 mls @ 100 mls/hr IVPB Q8H-IV [facility]; Protocol Last Admin: 12/24/17 17:20 Dose: 100 mls/hr Insulin Aspart (Novolog Vial Sliding Scale -) 1 vial SQ ACHS [facility]; Protocol Last Admin: 12/24/17 11:25 Dose: Not Given Mupirocin (Bactroban Ointment (For Decolonization) -) 1 applic NS BID [facility] Stop: 12/28/17 09:59 Last Admin: 12/24/17 21:48 Dose: 1 applic Ondansetron HCl (Zofran Injection) 4 mg IVPUSH Q6H PRN PRN Reason: NAUSEA Last Admin: 12/24/17 19:52 Dose: 4 mg - Objective Vital Signs: Vital Signs Temperature 98 F 12/24/17 10:00 Pulse Rate 83 12/24/17 21:20 Respiratory Rate 22 H 12/24/17 21:20 Blood Pressure 180/98 H 12/24/17 21:20 O2 Sat by Pulse Oximetry (%) 100 12/24/17 20:23 Labs: CBC, BMP 12/24/17 05:30 12/24/17 18:02 INR, PTT INR 0.98 (0.83-1.09) 12/22/17 23:15
[2017-12-25] MEDS: INSULIN SLIDING SCALE (NOVOLOG) 1 VIAL SQ SCH ×5 (01:52→22:34)
[2017-12-25] MEDS: CHLORHEXIDINE GLUCONATE 4% CLEANSER FOR DECOLONIZATION TP SCH ×2 (01:53→22:34)
[2017-12-25] MEDS: PIPERACILLIN/TAZOB 3.375 GM 3.375 GM in DEXTROSE 5%-WATER - 50 ML IVPB SCH ×3 (01:54→18:22)
[2017-12-25] MEDS: hydrALAZINE HCL 25 MG TABLET (FP) PO SCH ×4 (06:13→22:35)
[2017-12-25] MEDS: SODIUM CHLORIDE 0.45%/POT 20 MEQ/1,000 ML INFUS.BAG IV SCH (06:13)
[2017-12-25 06:14] LABS: HEMATOCRIT 40.8 % (32.4-45.2); HEMOGLOBIN 13.3 GM/dL (10.7-15.3); MCH 28.7 pg (25.7-33.7); MCHC 32.7 g/dl (32.0-36.0); MEAN CELL VOLUME 87.7 fl (80-96); MEAN PLT VOLUME 9.3 fl (7.5-11.1); PLATELET COUNT 337 K/MM3 (134-434); RBC 4.65 M/mm3 (3.60-5.2); RDW 14.5 % (11.6-15.6); WHITE BLOOD COUNT 12.4 K/mm3 (4.0-10.0)
[2017-12-25 06:57] LABS: ALBUMIN 3.1 g/dl (3.4-5.0); ALK PHOS 98 U/L (45-117); ANION GAP 12 MMOL/L (8-16); BILIRUBIN,TOTAL 0.7 mg/dL (0.2-1); BLOOD UREA NITROGEN 26 mg/dL (7-18); CALCIUM 9.4 mg/dL (8.5-10.1); CHLORIDE 97 mmol/L (98-107); CO2 27 mmol/L (21-32); CREATININE 0.9 mg/dL (0.55-1.3); GLUCOSE,RANDOM 128 mg/dL (74-106); MAGNESIUM 1.9 mg/dL (1.8-2.4); PHOSPHOROUS 3.9 mg/dL (2.5-4.9); POTASSIUM 3.3 mmol/L (3.5-5.1); SGOT/AST 14 U/L (15-37); SGPT/ALT 13 U/L (13-61); SODIUM 136 mmol/L (136-145); TOT PROT 7.4 g/dl (6.4-8.2)
[2017-12-25] MEDS: ONDANSETRON 4 MG/2 ML VIAL IVPUSH PRN (07:42)
[2017-12-25] MEDS ORDERED: POTASSIUM CHLORIDE TABS 20 MEQ TABLET.ER (FP) PO ONE (08:38)
[2017-12-25] MEDS: hydrALAZINE HCL 20 MG/ML VIAL IVPUSH PRN ×2 (08:43→15:00)
--- NOTE | 2017-12-25 08:43 | PN ---
Progress Note, Physician Chief Complaint: seen and examined for first time this admission in ICU Alert, oriented Denies CP or SOB C/o Nausea Bedside echo being performed. History of Present Illness: TELE: Reviewed. NSR. - Current Medication List Current Medications: Active Medications Amlodipine Besylate (Norvasc -) 5 mg PO DAILY [facility] Last Admin: 12/24/17 10:22 Dose: 5 mg Carvedilol (Coreg -) 6.25 mg PO BID [facility] Last Admin: 12/24/17 21:49 Dose: 6.25 mg Chlorhexidine Gluconate (Hibiclens For Decolonization -) 1 applic TP HS [facility] Last Admin: 12/25/17 01:53 Dose: 1 applic Heparin Sodium (Porcine) (Heparin -) 5,000 unit SQ BID [facility] Last Admin: 12/24/17 22:00 Dose: 5,000 unit Hydralazine HCl (Apresoline -) 25 mg PO TID [facility] Last Admin: 12/25/17 06:13 Dose: 25 mg Hydralazine HCl (Apresoline Injection -) 10 mg IVPUSH Q6H PRN PRN Reason: HYPERTENSION Potassium Chloride/Sodium Chloride (1/2ns+20meq Kcl) 20 meq in 1,000 mls @ 50 mls/hr IV ASDIR [facility] Last Admin: 12/25/17 06:13 Dose: 50 mls/hr Metronidazole (Flagyl 500mg Premixed Ivpb -) 500 mg in 100 mls @ 100 mls/hr IVPB Q8H-IV [facility] Last Admin: 12/25/17 02:09 Dose: 100 mls/hr Famotidine/Sodium Chloride (Pepcid 20 Mg Premixed Ivpb -) 20 mg in 50 mls @ 100 mls/hr IVPB BID [facility] Last Admin: 12/24/17 22:00 Dose: 100 mls/hr Piperacillin Sod/Tazobactam (Sod 3.375 gm/ Dextrose) 50 mls @ 100 mls/hr IVPB Q8H-IV [facility]; Protocol Last Admin: 12/25/17 01:54 Dose: 100 mls/hr Insulin Aspart (Novolog Vial Sliding Scale -) 1 vial SQ ACHS [facility]; Protocol Last Admin: 12/25/17 06:14 Dose: Not Given Mupirocin (Bactroban Ointment (For Decolonization) -) 1 applic NS BID [facility] Stop: 12/28/17 09:59 Last Admin: 12/24/17 21:48 Dose: 1 applic Ondansetron HCl (Zofran Injection) 4 mg IVPUSH Q6H PRN PRN Reason: NAUSEA Last Admin: 12/25/17 07:42 Dose: 4 mg Potassium Chloride (K-Dur -) 40 meq PO ONCE ONE Stop: 12/25/17 08:39 - Objective Vital Signs: Vital Signs Temperature 98.2 F 12/25/17 06:00 Pulse Rate 68 12/25/17 06:00 Respiratory Rate 15 12/25/17 06:00 Blood Pressure 187/84 H 12/25/17 06:00 O2 Sat by Pulse Oximetry (%) 100 12/24/17 20:23 Constitutional: Yes: Calm Cardiovascular: Yes: Regular Rate and Rhythm Respiratory: Yes: CTA Bilaterally Gastrointestinal: Yes: Soft Edema: No Peripheral Pulses WNL: Yes Neurological: Yes: Alert, Oriented ...Motor Strength: WNL Labs: CBC, BMP 12/25/17 05:30 12/25/17 05:30 INR, PTT INR 0.98 (0.83-1.09) 12/22/17 23:15 Laboratory Tests 12/25/17 12/25/17 05:30 05:30 WBC 12.4 H Hgb 13.3 Plt Count 337 Sodium 136 Potassium 3.3 L BUN 26 H Creatinine 0.9 - ....Imaging EKG: Image Reviewed Assessment/Plan A/P: 57 year old female with past medical history significant for hypertension, hyperlipidemia, diabetes admitted with nausea, vomiting and epigastric pain found to have elevated blood pressure to 205/110 requiring admission to ICU for BP control. Cardiology consulted for further management. #Hypertensive Urgency; off nitro gtt but BP elevated this AM SBPs in 190s Etiology: unclear --troponin negative X2 --ECG no ischemic changes --nuclear stress test 2017: negative for ischemia Treatment: --off of nitroglycerin gtt --Titrate Coreg --Head CT, r/o CVA (nausea) #Hypokalemia; ensure K+ is repleted to normal levels per primary team #Leukocytosis: management per primary team, ID following
[2017-12-25] MEDS ORDERED: hydrALAZINE HCL 25 MG TABLET (FP) PO SCH (08:44)
[2017-12-25] MEDS ORDERED: DEXTROSE 5%-WATER - 50 ML IVPB ONE ×2 (09:35→18:00)
[2017-12-25] MEDS ORDERED: PIPERACILLIN/TAZOBACTAM 3.375 GM VIAL IVPB ONE ×2 (09:35→18:00)
[2017-12-25] MEDS: FAMOTIDINE 20 MG/50 ML IVPB 20 MG/50 ML MG IVPB SCH ×2 (09:38→22:36)
[2017-12-25] MEDS: CARVEDILOL 12.5 MG TABLET (FP) PO SCH ×2 (09:39→22:35)
[2017-12-25] MEDS: HEPARIN NA (PORCINE) 5,000 UNITS/ML 1ML VIAL SQ SCH ×2 (09:39→22:36)
[2017-12-25] MEDS: amLODIPine BESYLATE 5 MG TABLET (FP) PO SCH (10:30)
[2017-12-25] MEDS: MUPIROCIN 2% TOPICAL OINTMENT FOR DECOLONIZATION NS SCH ×2 (10:30→22:34)
--- NOTE | 2017-12-25 11:57 | ECHO ---
Name: ELENA BREWER Exam:Adult Echocardiogram Study Date: 12/25/2017 08:19 AM Age: 57 yrs Reason For Study: HYPERTENSIVE URGENCY Height: 64 in Weight: 150 lb BSA: 1.7 m2 BP: 171/87 mmHg MMode/2D Measurements & Calculations IVSd: 0.99 cm Ao root diam: 2.7 cm LVIDd: 4.2 cm LA dimension: 2.6 cm LVIDs: 2.5 cm LVPWd: 1.0 cm EDV(Teich): 76.5 ml LVOT diam: 1.9 cm ESV(Teich): 22.5 ml TAPSE: 2.5 cm RV S Jeevan: 18.5 cm/sec Doppler Measurements & Calculations Ao V2 max: 199.1 cm/sec LV V1 max P.5 mmHg Ao max P.9 mmHg LV V1 max: 117.1 cm/sec LIZZETTE(V,D): 1.8 cm2 Med Peak E' Jeevan: 3.6 cm/sec Lat Peak E' Jeevan: 6.6 cm/sec Procedure A complete two-dimensional transthoracic echocardiogram was performed (2D, M-mode, Doppler and color flow Doppler). Left Ventricle The left ventricle is normal in size. Left ventricular systolic function is normal. Ejection Fraction = 65- 70%. E/A reversal and TID reveals impaired relaxation with elevated filling pressure (E/E' > 20). No regional wall motion abnormalities noted. Right Ventricle The right ventricle is normal size. The right ventricular systolic function is normal. RV systolic TD I is 19 cm/s. Atria The left atrial size is normal. Right atrial size is normal. Mitral Valve The mitral valve is normal in structure and function. There is no mitral regurgitation noted. Tricuspid Valve The tricuspid valve is normal in structure and function. No tricuspid regurgitation. Aortic Valve The aortic valve is normal in structure and function. No aortic regurgitation is present. Pulmonic Valve The pulmonic valve is not well visualized. Mild pulmonic valvular regurgitation. Great Vessels The aortic root is normal size. Pericardium/Pleura There is no pericardial effusion. Interpretation Summary The left ventricle is normal in size. Left ventricular systolic function is normal. No regional wall motion abnormalities noted. Ejection Fraction = 65-70%. E/A reversal and TID reveals impaired relaxation with elevated filling pressure (E/E' > 20) The right ventricular systolic function is normal. The left atrial size is normal. Right atrial size is normal. Mild pulmonic valvular regurgitation. There is no pericardial effusion. When compared to study dated 08/25/17, no significant changes are seen Andrés Dunbar MD 12/25/2017 11:57 AM
--- NOTE | 2017-12-25 12:00 | PN ---
Teaching Attending Note Name of Resident: Robin Ordonez ATTENDING PHYSICIAN STATEMENT I saw and evaluated the patient. I reviewed the resident's note and discussed the case with the resident. I agree with the resident's findings and plan as documented. SUBJECTIVE: Patient seen and examined in the ICU. Awake and alert. No VIZCARRA, BOV, etc. (+) Nausea and dry heaving. Intake & Output 12/22/17 12/23/17 12/24/17 12/25/17 23:59 23:59 23:59 23:59 Intake Total 2649 1800 400 Output Total 2200 1250 800 Balance 449 550 -400 Weight 150 lb 150 lb 114 lb 12.8 oz 118 lb 12.8 oz Last Vital Signs Temp Pulse Resp BP Pulse Ox 98.2 F 104 H 20 157/81 100 12/25/17 06:00 12/25/17 09:15 12/25/17 09:15 12/25/17 09:15 12/25/17 09:00 Active Medications Amlodipine Besylate (Norvasc -) 5 mg PO DAILY [facility] Last Admin: 12/24/17 10:22 Dose: 5 mg Carvedilol (Coreg -) 12.5 mg PO BID [facility] Last Admin: 12/25/17 09:39 Dose: 12.5 mg Chlorhexidine Gluconate (Hibiclens For Decolonization -) 1 applic TP HS [facility] Last Admin: 12/25/17 01:53 Dose: 1 applic Heparin Sodium (Porcine) (Heparin -) 5,000 unit SQ BID [facility] Last Admin: 12/25/17 09:39 Dose: 5,000 unit Hydralazine HCl (Apresoline Injection -) 10 mg IVPUSH Q6H PRN PRN Reason: HYPERTENSION Last Admin: 12/25/17 08:43 Dose: 10 mg Hydralazine HCl (Apresoline -) 25 mg PO TID [facility] Potassium Chloride/Sodium Chloride (1/2ns+20meq Kcl) 20 meq in 1,000 mls @ 50 mls/hr IV ASDIR [facility] Last Admin: 12/25/17 06:13 Dose: 50 mls/hr Metronidazole (Flagyl 500mg Premixed Ivpb -) 500 mg in 100 mls @ 100 mls/hr IVPB Q8H-IV [facility] Last Admin: 12/25/17 09:37 Dose: 100 mls/hr Famotidine/Sodium Chloride (Pepcid 20 Mg Premixed Ivpb -) 20 mg in 50 mls @ 100 mls/hr IVPB BID [facility] Last Admin: 12/25/17 09:38 Dose: 100 mls/hr Piperacillin Sod/Tazobactam (Sod 3.375 gm/ Dextrose) 50 mls @ 100 mls/hr IVPB Q8H-IV [facility]; Protocol Last Admin: 12/25/17 09:38 Dose: 100 mls/hr Insulin Aspart (Novolog Vial Sliding Scale -) 1 vial SQ ACHS [facility]; Protocol Last Admin: 12/25/17 06:14 Dose: Not Given Mupirocin (Bactroban Ointment (For Decolonization) -) 1 applic NS BID [facility] Stop: 12/28/17 09:59 Last Admin: 12/24/17 21:48 Dose: 1 applic Ondansetron HCl (Zofran Injection) 4 mg IVPUSH Q6H PRN PRN Reason: NAUSEA Last Admin: 12/25/17 07:42 Dose: 4 mg PE: Gen: awake, no focal, INAD HEENT: PERRL, (-) Icterus PULM: Clear bilaterally CV: RRR ABD: soft, mild tenderness mostly in the LLQ EXT: no edema, well perfused NEURO: nonfocal IMP: Hypertensive Emergency Hx of uterine fibroids History of Lung CA S/P Pneumonectomy HTN by history Imaging: Right side 5 cm , bilateral large complex cysts, moderate free fluid in pelvic cavity: Etiology to be determined PLAN: Titrate BP meds to keep SBP<160 O2 as needed Workup of free fluid ongoing (patient seen by RELIGIOUS EDUCATOR) PO as tolerated ABX per ID: Low threshold to D/C VTE prophylaxis 4W/4S monitoring Dr Hopper
--- NOTE | 2017-12-25 12:26 | PN ---
Progress Note, Physician History of Present Illness: patient stable nausea abd pain has improved wbc trending down - Current Medication List Current Medications: Active Medications Amlodipine Besylate (Norvasc -) 5 mg PO DAILY [facility] Last Admin: 12/25/17 10:30 Dose: 5 mg Carvedilol (Coreg -) 12.5 mg PO BID [facility] Last Admin: 12/25/17 09:39 Dose: 12.5 mg Chlorhexidine Gluconate (Hibiclens For Decolonization -) 1 applic TP HS [facility] Last Admin: 12/25/17 01:53 Dose: 1 applic Heparin Sodium (Porcine) (Heparin -) 5,000 unit SQ BID [facility] Last Admin: 12/25/17 09:39 Dose: 5,000 unit Hydralazine HCl (Apresoline Injection -) 10 mg IVPUSH Q6H PRN PRN Reason: HYPERTENSION Last Admin: 12/25/17 08:43 Dose: 10 mg Hydralazine HCl (Apresoline -) 25 mg PO TID [facility] Potassium Chloride/Sodium Chloride (1/2ns+20meq Kcl) 20 meq in 1,000 mls @ 50 mls/hr IV ASDIR [facility] Last Admin: 12/25/17 06:13 Dose: 50 mls/hr Metronidazole (Flagyl 500mg Premixed Ivpb -) 500 mg in 100 mls @ 100 mls/hr IVPB Q8H-IV [facility] Last Admin: 12/25/17 09:37 Dose: 100 mls/hr Famotidine/Sodium Chloride (Pepcid 20 Mg Premixed Ivpb -) 20 mg in 50 mls @ 100 mls/hr IVPB BID [facility] Last Admin: 12/25/17 09:38 Dose: 100 mls/hr Piperacillin Sod/Tazobactam (Sod 3.375 gm/ Dextrose) 50 mls @ 100 mls/hr IVPB Q8H-IV [facility]; Protocol Last Admin: 12/25/17 09:38 Dose: 100 mls/hr Insulin Aspart (Novolog Vial Sliding Scale -) 1 vial SQ ACHS [facility]; Protocol Last Admin: 12/25/17 12:13 Dose: Not Given Mupirocin (Bactroban Ointment (For Decolonization) -) 1 applic NS BID [facility] Stop: 12/28/17 09:59 Last Admin: 11/19/18 10:30 Dose: 1 applic Ondansetron HCl (Zofran Injection) 4 mg IVPUSH Q6H PRN PRN Reason: NAUSEA Last Admin: 12/25/17 07:42 Dose: 4 mg - Objective Vital Signs: Vital Signs Temperature 98.2 F 12/25/17 06:00 Pulse Rate 104 H 12/25/17 09:15 Respiratory Rate 20 12/25/17 09:15 Blood Pressure 157/81 12/25/17 09:15 O2 Sat by Pulse Oximetry (%) 100 12/25/17 09:00 Constitutional: Yes: No Distress, Calm Cardiovascular: Yes: Regular Rate and Rhythm Respiratory: Yes: Regular, CTA Bilaterally Gastrointestinal: Yes: Normal Bowel Sounds, Soft Musculoskeletal: Yes: WNL Extremities: Yes: WNL Neurological: Yes: Alert, Oriented Psychiatric: Yes: Alert, Oriented Labs: CBC, BMP 12/25/17 05:30 12/25/17 05:30 INR, PTT INR 0.98 (0.83-1.09) 12/22/17 23:15 Assessment/Plan Hypertensive Emergency Hx of uterine fibroids History of Lung CA S/P Pneumonectomy HTN by history Imaging: Right side 5 cm , bilateral large complex cysts, moderate free fluid in pelvic cavity leukocytosis 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
--- NOTE | 2017-12-25 12:33 | PN ---
Physical Exam: SUBJECTIVE: Patient seen and examined in the ICU. pt w/nausea and dry heaving w / chest tightness. denies VIZCARRA, diarrhea, fever, sob OBJECTIVE: Vital Signs Period Temp Pulse Resp BP Sys/Maxwell Pulse Ox Last 24 Hr 98.2 F-99.2 F 62-104 13-23 107-194/66-98 100-100 GENERAL: AOx3 mild distress HEAD:NCAT EYES: sclera anicteric, conjunctiva clear. No ptosis. ENT: MMM NECK: Trachea midline, full range of motion, supple. LUNGS: CTAB HEART: RRR, S1, S2 without murmur, rub or gallop. ABDOMEN: Soft, ttp epigastric, nondistended, normoactive bowel sounds, no guarding, no rebound EXTREMITIES: 2+ pulses, warm, well-perfused, no edema. NEUROLOGICAL: Cranial nerves II through XII grossly intact. Normal speech, gait not observed. PSYCH: Normal mood, normal affect. SKIN: Warm, dry, normal turgor, no rashes or lesions noted Laboratory Results - last 24 hr 12/24/17 12/24/17 12/24/17 17:54 18:02 23:04 WBC RBC Hgb Hct MCV MCH MCHC RDW Plt Count MPV Sodium 136 Potassium 4.0 Chloride 98 Carbon Dioxide 26 Anion Gap 12 BUN 27 H Creatinine 1.2 Creat Clearance w eGFR 45.98 POC Glucometer 129.99285 179.44464 Random Glucose 119 H Calcium 9.1 Phosphorus Magnesium Total Bilirubin AST ALT Alkaline Phosphatase Creatine Kinase Troponin I Total Protein Albumin 12/25/17 12/25/17 12/25/17 05:30 05:30 05:36 WBC 12.4 H RBC 4.65 Hgb 13.3 Hct 40.8 MCV 87.7 MCH 28.7 MCHC 32.7 RDW 14.5 Plt Count 337 MPV 9.3 Sodium 136 Potassium 3.3 L Chloride 97 L Carbon Dioxide 27 Anion Gap 12 BUN 26 H Creatinine 0.9 Creat Clearance w eGFR > 60 POC Glucometer [phone] Random Glucose 128 H Calcium 9.4 Phosphorus 3.9 Magnesium 1.9 Total Bilirubin 0.7 AST 14 L ALT 13 Alkaline Phosphatase 98 Creatine Kinase Cancelled Troponin I 0.02 Total Protein 7.4 Albumin 3.1 L Active Medications Generic Name Dose Route Start Last Admin Trade Name Freq PRN Reason Stop Dose Admin Amlodipine Besylate 5 mg 12/23/17 18:00 12/24/17 10:22 Norvasc - PO 5 mg DAILY [facility] Administration Carvedilol 12.5 mg 12/25/17 10:00 12/25/17 09:39 Coreg - PO 12.5 mg BID [facility] Administration Chlorhexidine Gluconate 1 applic 12/23/17 22:00 12/25/17 01:53 Hibiclens For Decolonization - TP 1 applic HS [facility] Administration Heparin Sodium (Porcine) 5,000 unit 12/23/17 10:00 12/25/17 09:39 Heparin - SQ 5,000 unit BID [facility] Administration Hydralazine HCl 10 mg 12/24/17 01:11 12/25/17 08:43 Apresoline Injection - IVPUSH 10 mg Q6H PRN Administration HYPERTENSION Hydralazine HCl 25 mg 12/25/17 14:00 Apresoline - PO TID [facility] Potassium Chloride/Sodium Chloride 20 meq in 1,000 mls @ 50 mls/hr 12/23/17 02 :30 12/25/17 06:13 1/2ns+20meq Kcl IV 50 mls/hr ASDIR [facility] Administration Metronidazole 500 mg in 100 mls @ 100 mls/hr 12/23/17 10:00 12/25/17 09:37 Flagyl 500mg Premixed Ivpb - IVPB 100 mls/hr Q8H-IV [facility] Administration Famotidine/Sodium Chloride 20 mg in 50 mls @ 100 mls/hr 12/23/17 22:00 09:38 Pepcid 20 Mg Premixed Ivpb - IVPB 100 mls/hr BID [facility] Administration Piperacillin Sod/Tazobactam 50 mls @ 100 mls/hr 12/23/17 19:00 12/25/17 09:38 Sod 3.375 gm/ Dextrose IVPB 100 mls/hr Q8H-IV [facility] Administration Protocol Insulin Aspart 1 vial 12/23/17 07:00 12/25/17 06:14 Novolog Vial Sliding Scale - SQ Not Given ACHS [facility] Protocol Mupirocin 1 applic 12/23/17 10:00 12/24/17 21:48 Bactroban Ointment (For Decolonization) - NS 12/28/17 09:59 1 applic BID [facility] Administration Ondansetron HCl 4 mg 12/23/17 03:07 12/25/17 07:42 Zofran Injection IVPUSH 4 mg Q6H PRN Administration NAUSEA ASSESSMENT/PLAN: 57 y/o woman hx of HTN, hyperlipidemia, diabetes uterine fibrodes, Lung CA s/p pneumonectomy admitted to ICU with hypertensive urgency, found to have some free fluid in abd and ovarian cysts being worked up by surg/OBGYN NEURO aox3 intact Cardiac #Hypertensive Urgency; off nitro gtt but BP elevated this AM SBPs in 190s. No evidence of end-organ damage presently Etiology: unclear -troponin negative X3 -ECG no ischemic changes -nuclear stress test 2017: negative for ischemia -increase Coreg to 12.5 -Titrate BP meds to keep SBP<160 c/w hydal, norvasc -Head CT - neg for CVA monitor vitals. cardiac monitoring urine toxicology - marijuana, opiates PULM no issues maintain O2>90% GI/ID/OBGYN Epigastric pain with vomiting: likely 2/2 Right side 5 cm , bilateral large complex cysts, moderate free fluid in pelvic cavity: Etiology to be determined. Other ddx gastritis, cannaboid hyperemisis syndrome, gastroperesis, cholecystitis. Workup of free fluid ongoing (patient seen by COOKER CHIP) Pain nausea and vomiting control. ultrasound upper abdomen - neg CTA chest and abdomen shows no PE or dissecting aortic aneurysm. lipase nl pepcid. s/p levofloxacin by ed team flagyl/zosyn, Low threshold to D/C, cultures are neg urine toxicology - marijuana, opiates RENAL monitor Cr 1/2 ns 50 ml/hr. ENDO DM BGM monitoring hold oral hypoglycemic ISS hba1c ketoneurea - improving doesn't meet criteria for dka. likely because of patient didn't eat any thing prior to admission. repeat in am Hx of Lung Ca s/p resection, chemo and radiation about 2 years ago FEN: fluids: 1/2 ns 50 ml/hr. replete prn Nutrition: Na/DM diet PPX: DVT - SQH pepcid Dispo: pt is stable and ready for transfer to [facility]. further care per primary team/PCP Visit type - Emergency Visit Emergency Visit: Yes ED Registration Date: 12/22/17 Care time: The patient presented to the Emergency Department on the above date and was hospitalized for further evaluation of their emergent condition. - New Patient This patient is new to me today: Yes Date on this admission: 12/25/17 - Critical Care Critical Care patient: Yes Total Critical Care Time (in minutes): 38 Critical Care Statement: The care of this patient involved high complexity decision making to prevent further life threatening deterioration of the patient 's condition and/or to evaluate & treat vital organ system(s) failure or risk of failure.
--- NOTE | 2017-12-25 18:26 | EKG ---
Test Reason : Blood Pressure : / mmHG Vent. Rate : 099 BPM Atrial Rate : 099 BPM P-R Int : 142 ms QRS Dur : 092 ms QT Int : 380 ms P-R-T Axes : 082 035 042 degrees QTc Int : 487 ms NORMAL SINUS RHYTHM POSSIBLE LEFT ATRIAL ENLARGEMENT INCOMPLETE RIGHT BUNDLE BRANCH BLOCK LEFT VENTRICULAR HYPERTROPHY CANNOT RULE OUT SEPTAL INFARCT (CITED ON OR BEFORE 24-AUG-2017) ABNORMAL ECG WHEN COMPARED WITH ECG OF 22-DEC-2017 22:35, NO SIGNIFICANT CHANGE WAS FOUND Confirmed by MILLA BRAVO, ROMEO ([id number]) on 12/25/2017 6:25:52 PM Referred By: EMILY PATEL,[facility] Confirmed By:ROMEO LOYOLA MD
--- NOTE | 2017-12-25 18:33 | EKG ---
Test Reason : Blood Pressure : / mmHG Vent. Rate : 080 BPM Atrial Rate : 080 BPM P-R Int : 148 ms QRS Dur : 092 ms QT Int : 452 ms P-R-T Axes : 067 056 051 degrees QTc Int : 521 ms NORMAL SINUS RHYTHM VOLTAGE CRITERIA FOR LEFT VENTRICULAR HYPERTROPHY CANNOT RULE OUT SEPTAL INFARCT (CITED ON OR BEFORE 24-AUG-2017) PROLONGED QT ABNORMAL ECG WHEN COMPARED WITH ECG OF 26-AUG-2017 18:04, NO SIGNIFICANT CHANGE WAS FOUND Confirmed by ROMEO LOYOLA MD ([id number]) on 12/25/2017 6:33:12 PM Referred By: Confirmed By:ROMEO LOYOLA MD
--- NOTE | 2017-12-25 22:42 | PN ---
Progress Note, Physician History of Present Illness: No new complaints - Current Medication List Current Medications: Active Medications Amlodipine Besylate (Norvasc -) 5 mg PO DAILY [facility] [place] Last Admin: 12/25/17 10:30 Dose: 5 mg Carvedilol (Coreg -) 12.5 mg PO BID [facility] [place] Last Admin: 12/25/17 22:35 Dose: 12.5 mg Chlorhexidine Gluconate (Hibiclens For Decolonization -) 1 applic TP HS [facility] [place] Last Admin: 12/25/17 22:34 Dose: Not Given Heparin Sodium (Porcine) (Heparin -) 5,000 unit SQ BID [facility] [place] Last Admin: 12/25/17 22:36 Dose: 5,000 unit Hydralazine HCl (Apresoline Injection -) 10 mg IVPUSH Q6H PRN PRN Reason: HYPERTENSION Last Admin: 12/25/17 15:00 Dose: 10 mg Hydralazine HCl (Apresoline -) 25 mg PO TID [facility] [place] Last Admin: 12/25/17 22:35 Dose: Not Given Potassium Chloride/Sodium Chloride (1/2ns+20meq Kcl) 20 meq in 1,000 mls @ 50 mls/hr IV ASDIR [facility] [place] Last Admin: 12/25/17 06:13 Dose: 50 mls/hr Metronidazole (Flagyl 500mg Premixed Ivpb -) 500 mg in 100 mls @ 100 mls/hr IVPB Q8H-IV [facility] [place] Last Admin: 12/25/17 18:22 Dose: 100 mls/hr Famotidine/Sodium Chloride (Pepcid 20 Mg Premixed Ivpb -) 20 mg in 50 mls @ 100 mls/hr IVPB BID [facility] [place] Last Admin: 12/25/17 22:36 Dose: 100 mls/hr Piperacillin Sod/Tazobactam (Sod 3.375 gm/ Dextrose) 50 mls @ 100 mls/hr IVPB Q8H-IV [facility] [place]; Protocol Last Admin: 12/25/17 18:22 Dose: 100 mls/hr Insulin Aspart (Novolog Vial Sliding Scale -) 1 vial SQ ACHS [facility] [place]; Protocol Last Admin: 12/25/17 22:34 Dose: Not Given Mupirocin (Bactroban Ointment (For Decolonization) -) 1 applic NS BID [facility] [place] Stop: 12/28/17 09:59 Last Admin: 12/25/17 22:34 Dose: Not Given Ondansetron HCl (Zofran Injection) 4 mg IVPUSH Q6H PRN PRN Reason: NAUSEA Last Admin: 12/25/17 07:42 Dose: 4 mg - Objective Vital Signs: Vital Signs Temperature 97.6 F 12/25/17 21:00 Pulse Rate 86 12/25/17 21:00 Respiratory Rate 20 12/25/17 21:00 Blood Pressure 126/72 12/25/17 21:00 O2 Sat by Pulse Oximetry (%) 100 12/25/17 21:00 Cardiovascular: Yes: WNL, Regular Rate and Rhythm Respiratory: Yes: WNL, Regular, CTA Bilaterally Gastrointestinal: Yes: WNL, Normal Bowel Sounds, Soft Labs: CBC, BMP 12/25/17 05:30 12/25/17 05:30 INR, PTT INR 0.98 (0.83-1.09) 12/22/17 23:15 Problem List - Problems (1) Hypertensive urgency Assessment/Plan: Pt has been off IV nitro Cont norvasc/coreg/hydralazine CT scan head was negative As per cardio Monitor electrolytes Code(s): I16.0 - HYPERTENSIVE URGENCY (2) Nausea Assessment/Plan: Urine tox screen (+) for opiates/marijuana Nausea/vomiting Due to ? cannaboid hyperemis syndrome vs gastroparesis Cont IV pepcid/zofran Will get GI consult Code(s): R11.0 - NAUSEA (3) Bilateral ovarian cysts Assessment/Plan: Will get CABLE REPAIRER/onco consult(Dr Griffin) Code(s): N83.201 - UNSPECIFIED OVARIAN CYST, RIGHT SIDE; N83.202 - UNSPECIFIED OVARIAN CYST, LEFT SIDE (4) Leukocytosis Assessment/Plan: WBC slowly improving Cont IV zosyn/flagyl Code(s): D72.829 - ELEVATED WHITE BLOOD CELL COUNT, UNSPECIFIED Qualifiers: Leukocytosis type: unspecified Qualified Code(s): D72.829 - Elevated white blood cell count, unspecified (5) Diabetes Assessment/Plan: Cont sliding scale w/ coverage Check HgA1c Code(s): E11.9 - TYPE 2 DIABETES MELLITUS WITHOUT COMPLICATIONS Qualifiers: Diabetes mellitus type: type 2 Chronic kidney disease stage: unspecified stage
[2017-12-26] MEDS: SODIUM CHLORIDE 0.45%/POT 20 MEQ/1,000 ML INFUS.BAG IV SCH (03:00)
[2017-12-26] MEDS ORDERED: DEXTROSE 5%-WATER - 50 ML IVPB ONE ×3 (03:43→17:10)
[2017-12-26] MEDS ORDERED: PIPERACILLIN/TAZOBACTAM 3.375 GM VIAL IVPB ONE ×3 (03:43→17:10)
[2017-12-26] MEDS: PIPERACILLIN/TAZOB 3.375 GM 3.375 GM in DEXTROSE 5%-WATER - 50 ML IVPB SCH ×3 (04:01→17:18)
[2017-12-26] MEDS: INSULIN SLIDING SCALE (NOVOLOG) 1 VIAL SQ SCH ×4 (07:18→21:52)
[2017-12-26 07:36] LABS: BASO % 0.3 % (0-2.0); EOS % 0.5 % (0-4.5); LYMPH % 22.3 % (8-40); MCH 29.2 pg (25.7-33.7); MCHC 32.6 g/dl (32.0-36.0); MEAN CELL VOLUME 89.5 fl (80-96); MEAN PLT VOLUME 9.2 fl (7.5-11.1); MONO % 7.7 % (3.8-10.2); NEUT % 69.2 % (42.8-82.8); PLATELET COUNT 318 K/MM3 (134-434); RBC 4.47 M/mm3 (3.60-5.2); RDW 14.2 % (11.6-15.6); WHITE BLOOD COUNT 9.5 K/mm3 (4.0-10.0)
[2017-12-26 08:05] LABS: ALBUMIN 2.8 g/dl (3.4-5.0); ALK PHOS 84 U/L (45-117); ANION GAP 11 MMOL/L (8-16); BILIRUBIN,TOTAL 0.9 mg/dL (0.2-1); BLOOD UREA NITROGEN 34 mg/dL (7-18); CALCIUM 9.1 mg/dL (8.5-10.1); CHLORIDE 99 mmol/L (98-107); CO2 26 mmol/L (21-32); CREATININE 1.1 mg/dL (0.55-1.3); GLUCOSE,RANDOM 119 mg/dL (74-106); POTASSIUM 4.2 mmol/L (3.5-5.1); SGOT/AST 11 U/L (15-37); SGPT/ALT 10 U/L (13-61); SODIUM 136 mmol/L (136-145); TOT PROT 6.5 g/dl (6.4-8.2)
[2017-12-26] MEDS: hydrALAZINE HCL 25 MG TABLET (FP) PO SCH (08:30)
--- NOTE | 2017-12-26 09:56 | PN ---
Progress Note, Physician Chief Complaint: feeling well Head CT negative Nausea improved off hydralazine. - Current Medication List Current Medications: Active Medications Amlodipine Besylate (Norvasc -) 5 mg PO DAILY [facility] Last Admin: 12/25/17 10:30 Dose: 5 mg Carvedilol (Coreg -) 12.5 mg PO BID [facility] Last Admin: 12/25/17 22:35 Dose: 12.5 mg Chlorhexidine Gluconate (Hibiclens For Decolonization -) 1 applic TP HS [facility] Last Admin: 12/25/17 22:34 Dose: Not Given Heparin Sodium (Porcine) (Heparin -) 5,000 unit SQ BID [facility] Last Admin: 12/25/17 22:36 Dose: 5,000 unit Potassium Chloride/Sodium Chloride (1/2ns+20meq Kcl) 20 meq in 1,000 mls @ 50 mls/hr IV ASDIR [facility] Last Admin: 12/26/17 03:00 Dose: 50 mls/hr Metronidazole (Flagyl 500mg Premixed Ivpb -) 500 mg in 100 mls @ 100 mls/hr IVPB Q8H-IV [facility] Last Admin: 12/26/17 04:00 Dose: 100 mls/hr Famotidine/Sodium Chloride (Pepcid 20 Mg Premixed Ivpb -) 20 mg in 50 mls @ 100 mls/hr IVPB BID [facility] Last Admin: 12/25/17 22:36 Dose: 100 mls/hr Piperacillin Sod/Tazobactam (Sod 3.375 gm/ Dextrose) 50 mls @ 100 mls/hr IVPB Q8H-IV [facility]; Protocol Last Admin: 12/26/17 09:16 Dose: 100 mls/hr Insulin Aspart (Novolog Vial Sliding Scale -) 1 vial SQ ACHS [facility]; Protocol Last Admin: 12/26/17 07:18 Dose: Not Given Mupirocin (Bactroban Ointment (For Decolonization) -) 1 applic NS BID [facility] Stop: 12/28/17 09:59 Last Admin: 12/25/17 22:34 Dose: Not Given Ondansetron HCl (Zofran Injection) 4 mg IVPUSH Q6H PRN PRN Reason: NAUSEA Last Admin: 12/25/17 07:42 Dose: 4 mg - Objective Vital Signs: Vital Signs Temperature 98.1 F 12/26/17 06:00 Pulse Rate 62 12/26/17 06:00 Respiratory Rate 20 12/26/17 06:00 Blood Pressure 122/70 12/26/17 06:00 O2 Sat by Pulse Oximetry (%) 100 12/25/17 21:00 Constitutional: Yes: No Distress, Calm Cardiovascular: Yes: Regular Rate and Rhythm Respiratory: Yes: CTA Bilaterally Gastrointestinal: Yes: Soft Edema: No Neurological: Yes: Alert, Oriented ...Motor Strength: WNL Labs: CBC, BMP 12/26/17 06:28 12/26/17 06:28 INR, PTT INR 0.98 (0.83-1.09) 12/22/17 23:15 Laboratory Tests 12/26/17 12/26/17 06:28 06:28 WBC 9.5 Hgb 13.0 Plt Count 318 Sodium 136 Potassium 4.2 BUN 34 H Creatinine 1.1 Random Glucose 119 H Calcium 9.1 - ....Imaging EKG: Image Reviewed Assessment/Plan Assessment/Plan A/P: 57 year old female with past medical history significant for hypertension, hyperlipidemia, diabetes admitted with nausea, vomiting and epigastric pain found to have elevated blood pressure to 205/110 requiring admission to ICU for BP control. Cardiology consulted for further management. #Hypertensive Urgency: Etiology: unclear --troponin negative X2 --ECG no ischemic changes --nuclear stress test 2017: negative for ischemia Treatment: --Titrate Coreg --D/ C hydralazine #Hypokalemia; ensure K+ is repleted to normal levels per primary team #Leukocytosis: management per primary team, ID following
[2017-12-26] MEDS: CARVEDILOL 12.5 MG TABLET (FP) PO SCH ×2 (10:41→21:52)
[2017-12-26] MEDS: FAMOTIDINE 20 MG/50 ML IVPB 20 MG/50 ML MG IVPB SCH (10:41)
[2017-12-26] MEDS: amLODIPine BESYLATE 5 MG TABLET (FP) PO SCH (10:41)
[2017-12-26] MEDS: HEPARIN NA (PORCINE) 5,000 UNITS/ML 1ML VIAL SQ SCH ×2 (10:41→21:51)
[2017-12-26] MEDS: MUPIROCIN 2% TOPICAL OINTMENT FOR DECOLONIZATION NS SCH ×2 (10:42→21:52)
--- NOTE | 2017-12-26 13:24 | PN ---
Progress Note, Physician History of Present Illness: doing much better abd pain nearly resolved gi going to have a look at the patient wbc now wnl - Current Medication List Current Medications: Active Medications Amlodipine Besylate (Norvasc -) 5 mg PO DAILY [facility] Last Admin: 12/26/17 10:41 Dose: 5 mg Carvedilol (Coreg -) 12.5 mg PO BID [facility] Last Admin: 12/26/17 10:41 Dose: 12.5 mg Chlorhexidine Gluconate (Hibiclens For Decolonization -) 1 applic TP HS [facility] Last Admin: 12/25/17 22:34 Dose: Not Given Heparin Sodium (Porcine) (Heparin -) 5,000 unit SQ BID [facility] Last Admin: 12/26/17 10:41 Dose: 5,000 unit Potassium Chloride/Sodium Chloride (1/2ns+20meq Kcl) 20 meq in 1,000 mls @ 50 mls/hr IV ASDIR [facility] Last Admin: 12/26/17 03:00 Dose: 50 mls/hr Metronidazole (Flagyl 500mg Premixed Ivpb -) 500 mg in 100 mls @ 100 mls/hr IVPB Q8H-IV [facility] Last Admin: 12/26/17 10:41 Dose: 100 mls/hr Famotidine/Sodium Chloride (Pepcid 20 Mg Premixed Ivpb -) 20 mg in 50 mls @ 100 mls/hr IVPB BID [facility] Last Admin: 12/26/17 10:41 Dose: 100 mls/hr Piperacillin Sod/Tazobactam (Sod 3.375 gm/ Dextrose) 50 mls @ 100 mls/hr IVPB Q8H-IV [facility]; Protocol Last Admin: 12/26/17 09:16 Dose: 100 mls/hr Insulin Aspart (Novolog Vial Sliding Scale -) 1 vial SQ ACHS [facility]; Protocol Last Admin: 12/26/17 11:57 Dose: Not Given Mupirocin (Bactroban Ointment (For Decolonization) -) 1 applic NS BID [facility] Stop: 12/28/17 09:59 Last Admin: 12/26/17 10:42 Dose: Not Given Ondansetron HCl (Zofran Injection) 4 mg IVPUSH Q6H PRN PRN Reason: NAUSEA Last Admin: 12/25/17 07:42 Dose: 4 mg - Objective Vital Signs: Vital Signs Temperature 97.9 F 12/26/17 10:00 Pulse Rate 52 L 12/26/17 12:09 Respiratory Rate 16 12/26/17 10:00 Blood Pressure 145/69 12/26/17 10:00 O2 Sat by Pulse Oximetry (%) 100 12/26/17 09:00 Constitutional: Yes: No Distress, Calm Eyes: Yes: Conjunctiva Clear Neck: Yes: Supple Cardiovascular: Yes: S1, S2 Respiratory: Yes: Regular, CTA Bilaterally Gastrointestinal: Yes: Normal Bowel Sounds, Soft Musculoskeletal: Yes: WNL Extremities: Yes: WNL Neurological: Yes: Alert, Oriented Psychiatric: Yes: Alert, Oriented Labs: CBC, BMP 12/26/17 06:28 12/26/17 06:28 INR, PTT INR 0.98 (0.83-1.09) 12/22/17 23:15 Assessment/Plan Hypertensive Emergency Hx of uterine fibroids History of Lung CA S/P Pneumonectomy HTN by history Imaging: Right side 5 cm , bilateral large complex cysts, moderate free fluid in pelvic cavity leukocytosis plan will stop abx will watch wbc await gi input rest as per the team
[2017-12-26] MEDS ORDERED: INSULIN (NOVOLOG) ASPART 100 UNITS/ML 10ML VIAL ONE (17:12)
[2017-12-26] MEDS ORDERED: METOCLOPRAMIDE HCL INJECTION 10 MG/2 ML VIAL IVPB SCH (19:30)
--- NOTE | 2017-12-26 19:37 | CON.GI ---
Consult Consult Specialty:: GI - History of Present Illness History of Present Illness: 57yo female PMH [place] (2006), HTN (not compliant with medication), Lung CA s/p resection, chemo, and radiation, and DM presents to the emergency department with nausea and vomiting. The patient presents with 1 day of nausea and NBNB vomiting and a single episode of diarrhea yesterday. The patient reports associated symptoms of sharp, burning lower abdominal pain. Denies fever, chills , chest pain, shortness of breath, sick contact or recent illness. Ct scan shows free fluid in the pelvis and complex ovarian cystic changes I was asked to see patient because of nausea and vomiting which improved after discontinuing the hydralazine. Tolerated her diet well. - Past Medical History Cardio/Vascular: Yes: CAD (reported prior [place] 2006 treated medically), HTN Pulmonary: Yes: Other (h/o Left Upper lobe Lung cancer , s/p resection ( 2014) , chemotherapy & radiation as per resident notes ) Gastrointestinal: Yes: Diverticulitis ...: No Endocrine: Yes: Diabetes Mellitus - Past Surgical History Past Surgical History: Yes: Hysterectomy Additional Surgical History: left lung upper ;Lobe resction 2014 at [facility] - Alcohol/Substance Use Hx Alcohol Use: No History of Substance Use: reports: Marijuana - Smoking History Smoking history: Former smoker Have you smoked in the past 12 months: No Aproximately how many cigarettes per day: 1 If you are a former smoker, when did you quit?: 2014 - Social History Usual Living Arrangement: With Spouse ADL: Independent History of Recent Travel: No Home Medications - Allergies Allergies/Adverse Reactions: Allergies Allergy/AdvReac Type Severity Reaction Status Date / Time No Known Allergies Allergy Verified 12/22/17 22:20 - Home Medications Home Medications: Ambulatory Orders metFORMIN HCL [Metformin HCl] 500 mg PO BID 05/02/16 Amox-Tr/K Cl [Augmentin - 875Mg Tablet] 1 tab PO BID #14 tablet 08/30/17 Amlodipine Besylate [Norvasc -] 5 mg PO DAILY 12/23/17 Family Disease History - Family Disease History Family Disease History: Diabetes: Father, Mother Physical Exam-GI Vital Signs: Vital Signs Temperature 97.9 F 12/26/17 17:00 Pulse Rate 57 L 12/26/17 17:00 Respiratory Rate 20 12/26/17 17:00 Blood Pressure 138/78 12/26/17 17:00 O2 Sat by Pulse Oximetry (%) 100 12/26/17 09:00 Constitutional: Yes: Well Nourished Eyes: Yes: Conjunctiva Clear HENT: Yes: Atraumatic Neck: Yes: Supple Cardiovascular: Yes: Regular Rate and Rhythm Respiratory: Yes: CTA Bilaterally ...Auscultate: No: Hypoactive Bowel Sounds ...Palpate: Yes: Soft. No: Guarding, Hepatomegaly, Mass, Pulsatile Mass, Splenomegaly, Tenderness Labs: CBC, BMP 12/26/17 06:28 12/26/17 06:28 INR, PTT INR 0.98 (0.83-1.09) 12/22/17 23:15 Problem List - Problems (1) Nausea & vomiting Assessment/Plan: resolved drug induced vs dyspepsia R> Famotidine 40mg daily'Reglan 5 mg 30 min ac Code(s): R11.2 - NAUSEA WITH VOMITING, UNSPECIFIED Qualifiers: Vomiting type: bilious vomiting Qualified Code(s): R11.14 - Bilious vomiting
[2017-12-26] MEDS ORDERED: ONDANSETRON 4 MG/2 ML VIAL IVPUSH SCH (20:00)
--- NOTE | 2017-12-26 20:51 | PN ---
Progress Note, Physician - Current Medication List Current Medications: Active Medications Amlodipine Besylate (Norvasc -) 5 mg PO DAILY [facility] Last Admin: 12/26/17 10:41 Dose: 5 mg Carvedilol (Coreg -) 12.5 mg PO BID [facility] Last Admin: 12/26/17 10:41 Dose: 12.5 mg Chlorhexidine Gluconate (Hibiclens For Decolonization -) 1 applic TP HS [facility] Last Admin: 12/25/17 22:34 Dose: Not Given Heparin Sodium (Porcine) (Heparin -) 5,000 unit SQ BID [facility] Last Admin: 12/26/17 10:41 Dose: 5,000 unit Potassium Chloride/Sodium Chloride (1/2ns+20meq Kcl) 20 meq in 1,000 mls @ 50 mls/hr IV ASDIR [facility] Last Admin: 12/26/17 03:00 Dose: 50 mls/hr Metronidazole (Flagyl 500mg Premixed Ivpb -) 500 mg in 100 mls @ 100 mls/hr IVPB Q8H-IV [facility] Last Admin: 12/26/17 17:49 Dose: 100 mls/hr Piperacillin Sod/Tazobactam (Sod 3.375 gm/ Dextrose) 50 mls @ 100 mls/hr IVPB Q8H-IV [facility]; Protocol Last Admin: 12/26/17 17:18 Dose: 100 mls/hr Insulin Aspart (Novolog Vial Sliding Scale -) 1 vial SQ ACHS [facility]; Protocol Last Admin: 12/26/17 17:17 Dose: 2 units Metoclopramide HCl (Reglan -) 5 mg PO TIDAC [facility] Mupirocin (Bactroban Ointment (For Decolonization) -) 1 applic NS BID [facility] Stop: 12/28/17 09:59 Last Admin: 12/26/17 10:42 Dose: Not Given Ranitidine HCl (Zantac -) 150 mg PO BID [facility] - Objective Vital Signs: Vital Signs Temperature 97.9 F 12/26/17 17:00 Pulse Rate 57 L 12/26/17 17:00 Respiratory Rate 20 12/26/17 17:00 Blood Pressure 138/78 12/26/17 17:00 O2 Sat by Pulse Oximetry (%) 100 12/26/17 09:00 Labs: CBC, BMP 12/26/17 06:28 12/26/17 06:28 INR, PTT INR 0.98 (0.83-1.09) 12/22/17 23:15 Problem List - Problems (1) Hypertensive urgency Code(s): I16.0 - HYPERTENSIVE URGENCY (2) Nausea Code(s): R11.0 - NAUSEA (3) Bilateral ovarian cysts Code(s): N83.201 - UNSPECIFIED OVARIAN CYST, RIGHT SIDE; N83.202 - UNSPECIFIED OVARIAN CYST, LEFT SIDE (4) Leukocytosis Code(s): D72.829 - ELEVATED WHITE BLOOD CELL COUNT, UNSPECIFIED Qualifiers: Leukocytosis type: unspecified Qualified Code(s): D72.829 - Elevated white blood cell count, unspecified (5) Diabetes Code(s): E11.9 - TYPE 2 DIABETES MELLITUS WITHOUT COMPLICATIONS Qualifiers: Diabetes mellitus type: type 2 Chronic kidney disease stage: unspecified stage
[2017-12-26] MEDS: RANITIDINE HCL 150 MG TABLET (FP) PO SCH (21:51)
[2017-12-26] MEDS: CHLORHEXIDINE GLUCONATE 4% CLEANSER FOR DECOLONIZATION TP SCH (21:52)
[2017-12-26] MEDS ORDERED: PANTOPRAZOLE SODIUM 40 MG VIAL IVPUSH SCH (22:00)
[2017-12-26] MEDS ORDERED: PANTOPRAZOLE SODIUM 40 MG in SODIUM CHLORIDE 100 ML IVPB SCH (22:00)
[2017-12-27] MEDS ORDERED: DEXTROSE 5%-WATER - 50 ML IVPB ONE ×2 (01:16→08:57)
[2017-12-27] MEDS ORDERED: PIPERACILLIN/TAZOBACTAM 3.375 GM VIAL IVPB ONE ×2 (01:16→08:57)
[2017-12-27] MEDS: PIPERACILLIN/TAZOB 3.375 GM 3.375 GM in DEXTROSE 5%-WATER - 50 ML IVPB SCH ×2 (01:30→09:34)
[2017-12-27] MEDS: INSULIN SLIDING SCALE (NOVOLOG) 1 VIAL SQ SCH ×2 (06:36→11:50)
[2017-12-27] MEDS: SODIUM CHLORIDE 0.45%/POT 20 MEQ/1,000 ML INFUS.BAG IV SCH (06:36)
[2017-12-27] MEDS: METOCLOPRAMIDE HCL 10 MG TABLET (FP) PO SCH ×2 (06:37→11:50)
--- NOTE | 2017-12-27 06:50 | PN ---
Progress Note (short form) - Note Progress Note: BIANCA , Ovarian ca markers still pending Problem List - Problems (1) Bilateral ovarian cysts Code(s): N83.201 - UNSPECIFIED OVARIAN CYST, RIGHT SIDE; N83.202 - UNSPECIFIED OVARIAN CYST, LEFT SIDE (2) Diverticulitis large intestine w/o perforation or abscess w/o bleeding Code(s): K57.32 - DVTRCLI OF LG INT W/O PERFORATION OR ABSCESS W/O BLEEDING (3) Hypertensive urgency Code(s): I16.0 - HYPERTENSIVE URGENCY (4) Diabetes Code(s): E11.9 - TYPE 2 DIABETES MELLITUS WITHOUT COMPLICATIONS Qualifiers: Diabetes mellitus type: type 2 Chronic kidney disease stage: unspecified stage (5) History of lung cancer Code(s): Z85.118 - PERSONAL HISTORY OF MALIGNANT NEOPLASM OF BRONCHUS AND LUNG (6) Hypertension Code(s): I10 - ESSENTIAL (PRIMARY) HYPERTENSION Qualifiers: Hypertension type: unspecified Qualified Code(s): I10 - Essential (primary ) hypertension (7) Hypokalemia Code(s): E87.6 - HYPOKALEMIA
[2017-12-27] MEDS ORDERED: ONDANSETRON 4 MG/2 ML VIAL IVPUSH PRN (08:00)
--- NOTE | 2017-12-27 08:38 | PN ---
Progress Note, Physician Chief Complaint: comfortable, no acute distress BP remains well controlled TELE: NSR - Current Medication List Current Medications: Active Medications Amlodipine Besylate (Norvasc -) 5 mg PO DAILY [facility] Last Admin: 12/26/17 10:41 Dose: 5 mg Carvedilol (Coreg -) 12.5 mg PO BID [facility] Last Admin: 12/26/17 21:52 Dose: 12.5 mg Heparin Sodium (Porcine) (Heparin -) 5,000 unit SQ BID [facility] Last Admin: 12/26/17 21:51 Dose: 5,000 unit Potassium Chloride/Sodium Chloride (1/2ns+20meq Kcl) 20 meq in 1,000 mls @ 50 mls/hr IV ASDIR [facility] Last Admin: 12/27/17 06:36 Dose: 50 mls/hr Metronidazole (Flagyl 500mg Premixed Ivpb -) 500 mg in 100 mls @ 100 mls/hr IVPB Q8H-IV [facility] Last Admin: 12/27/17 01:30 Dose: 100 mls/hr Piperacillin Sod/Tazobactam (Sod 3.375 gm/ Dextrose) 50 mls @ 100 mls/hr IVPB Q8H-IV [facility]; Protocol Last Admin: 12/27/17 01:30 Dose: 100 mls/hr Insulin Aspart (Novolog Vial Sliding Scale -) 1 vial SQ ACHS [facility]; Protocol Last Admin: 12/27/17 06:36 Dose: Not Given Metoclopramide HCl (Reglan -) 5 mg PO TIDAC [facility] Last Admin: 12/27/17 06:37 Dose: 5 mg Ranitidine HCl (Zantac -) 150 mg PO BID [facility] Last Admin: 12/26/17 21:51 Dose: 150 mg - Objective Vital Signs: Vital Signs Temperature 97.8 F 12/27/17 06:00 Pulse Rate 58 L 12/27/17 06:00 Respiratory Rate 20 12/27/17 06:00 Blood Pressure 133/76 12/27/17 06:00 O2 Sat by Pulse Oximetry (%) 100 12/26/17 20:59 Constitutional: Yes: No Distress, Calm Cardiovascular: Yes: Regular Rate and Rhythm Respiratory: Yes: CTA Bilaterally Gastrointestinal: Yes: Soft Edema: No Neurological: Yes: Alert, Oriented ...Motor Strength: WNL Labs: CBC, BMP 12/26/17 06:28 12/26/17 06:28 INR, PTT INR 0.98 (0.83-1.09) 12/22/17 23:15 - ....Imaging EKG: Image Reviewed Assessment/Plan Assessment/Plan A/P: 57 year old female with past medical history significant for hypertension, hyperlipidemia, diabetes admitted with nausea, vomiting and epigastric pain found to have elevated blood pressure to 205/110 requiring admission to ICU for BP control. Cardiology consulted for further management. #Hypertensive Urgency: Resolved. --troponin negative X2 --ECG no ischemic changes --nuclear stress test 2017: negative for ischemia Treatment: BP now well controlled on single drug, Carvedilol. #Leukocytosis: management per primary team, ID following D/C TELEMETRY
[2017-12-27] MEDS: amLODIPine BESYLATE 5 MG TABLET (FP) PO SCH (09:34)
[2017-12-27] MEDS: RANITIDINE HCL 150 MG TABLET (FP) PO SCH (09:34)
[2017-12-27] MEDS: HEPARIN NA (PORCINE) 5,000 UNITS/ML 1ML VIAL SQ SCH (09:34)
[2017-12-27] MEDS: CARVEDILOL 12.5 MG TABLET (FP) PO SCH (09:34)
[2017-12-27 10:41] VITALS: BP 145/69; PULSE 59; TEMP 98
--- NOTE | 2017-12-27 12:06 | PN ---
Progress Note, Physician History of Present Illness: doing much better no complaints wants to go home abd pain completely resolved - Current Medication List Current Medications: Active Medications Amlodipine Besylate (Norvasc -) 5 mg PO DAILY [facility] Last Admin: 12/27/17 09:34 Dose: 5 mg Carvedilol (Coreg -) 12.5 mg PO BID [facility] Last Admin: 12/27/17 09:34 Dose: 12.5 mg Heparin Sodium (Porcine) (Heparin -) 5,000 unit SQ BID [facility] Last Admin: 12/27/17 09:34 Dose: Not Given Potassium Chloride/Sodium Chloride (1/2ns+20meq Kcl) 20 meq in 1,000 mls @ 50 mls/hr IV ASDIR [facility] Last Admin: 12/27/17 06:36 Dose: 50 mls/hr Metronidazole (Flagyl 500mg Premixed Ivpb -) 500 mg in 100 mls @ 100 mls/hr IVPB Q8H-IV [facility] Last Admin: 12/27/17 09:34 Dose: 100 mls/hr Piperacillin Sod/Tazobactam (Sod 3.375 gm/ Dextrose) 50 mls @ 100 mls/hr IVPB Q8H-IV [facility]; Protocol Last Admin: 12/27/17 09:34 Dose: 100 mls/hr Insulin Aspart (Novolog Vial Sliding Scale -) 1 vial SQ ACHS [facility]; Protocol Last Admin: 12/27/17 11:50 Dose: Not Given Metoclopramide HCl (Reglan -) 5 mg PO TIDAC [facility] Last Admin: 12/27/17 11:50 Dose: Not Given Ranitidine HCl (Zantac -) 150 mg PO BID [facility] Last Admin: 12/27/17 09:34 Dose: 150 mg - Objective Vital Signs: Vital Signs Temperature 98.0 F 12/27/17 10:00 Pulse Rate 59 L 12/27/17 10:00 Respiratory Rate 16 12/27/17 10:00 Blood Pressure 145/69 12/27/17 10:00 O2 Sat by Pulse Oximetry (%) 100 12/27/17 09:00 Constitutional: Yes: No Distress, Calm Cardiovascular: Yes: Regular Rate and Rhythm Gastrointestinal: Yes: Normal Bowel Sounds, Soft Musculoskeletal: Yes: WNL Extremities: Yes: WNL Neurological: Yes: Alert, Oriented Psychiatric: Yes: Alert, Oriented Labs: CBC, BMP 12/26/17 06:28 12/26/17 06:28 INR, PTT INR 0.98 (0.83-1.09) 12/22/17 23:15 Assessment/Plan Hypertensive Emergency Hx of uterine fibroids History of Lung CA S/P Pneumonectomy HTN by history Imaging: Right side 5 cm , bilateral large complex cysts, moderate free fluid in pelvic cavity leukocytosis plan stable off of abx 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
--- NOTE | 2018-01-01 19:27 | DS ---
Physical Examination Vital Signs: Vital Signs Temperature 98.0 F 12/27/17 10:00 Pulse Rate 59 L 12/27/17 10:00 Respiratory Rate 16 12/27/17 10:00 Blood Pressure 145/69 12/27/17 10:00 O2 Sat by Pulse Oximetry (%) 100 12/27/17 09:00 Labs: CBC, BMP 12/26/17 06:28 12/26/17 06:28 Discharge Summary Reason For Visit: HYPERTENSIVE URGENCY Condition: Good - Instructions Diet, Activity, Other Instructions: 2 gram sodium and [address] Eugene Figueroa in 1 week Disposition: HOME - Home Medications Comprehensive Discharge Medication List: Ambulatory Orders metFORMIN HCL [Metformin HCl] 500 mg PO BID 05/02/16 Amlodipine Besylate [Norvasc -] 5 mg PO DAILY 12/23/17 Amlodipine Besylate [Norvasc -] 5 mg PO DAILY #30 tablet 12/27/17 Carvedilol [Coreg -] 12.5 mg PO BID #60 tablet 12/27/17 Ranitidine [Zantac -] 150 mg PO BID #60 tablet 12/27/17 hydrALAZINE HCL [Apresoline -] 25 mg PO TID #90 tablet 12/27/17
== END 2017-12-27 13:30 | disposition home or self-care (01) | DRG 305 ==
LOC: JER 21:51 → JERBED 23:42 → UNDOADMIN 12-23 01:03 → JERBED 12-23 01:03 → JICU 12-23 02:55 → J4W 12-25 15:26
PROVIDERS: ADMIT Internal Medicine; ATTEND Internal Medicine
DX: I16.0 Hypertensive urgency (principal); R64 Cachexia; Z68.1 Body mass index [BMI] 19.9 or less, adult; E11.22 Type 2 diabetes mellitus with diabetic chronic kidney disease; E87.6 Hypokalemia; T40.7X1A Poisoning by cannabis (derivatives), accidental (unintentional), initial encounter; R11.2 Nausea with vomiting, unspecified; E11.65 Type 2 diabetes mellitus with hyperglycemia; E83.42 Hypomagnesemia; I10 Essential (primary) hypertension; D72.829 Elevated white blood cell count, unspecified; Z79.84 Long term (current) use of oral hypoglycemic drugs; J44.9 Chronic obstructive pulmonary disease, unspecified; Z85.118 Personal history of other malignant neoplasm of bronchus and lung; K57.30 Diverticulosis of large intestine without perforation or abscess without bleeding; Z87.891 Personal history of nicotine dependence; F12.10 Cannabis abuse, uncomplicated; I25.10 Atherosclerotic heart disease of native coronary artery without angina pectoris; I25.2 Old myocardial infarction; Z91.14 Patient's other noncompliance with medication regimen; N83.202 Unspecified ovarian cyst, left side; N85.8 Other specified noninflammatory disorders of uterus; Z79.4 Long term (current) use of insulin
CPT/HCPCS: 36415; 70450-TC; 71045-TC-FY; 71275-TC; 74174-TC; 76705-TC; 76830-TC; 80048; 80053; 80307; 81003; 81015; 81500; 82550; 82803; 82962; 83036; 83690; 83735; 84100; 84484; 85025; 85027; 85610; 85730; 87040; 87086; 93005; 93010; 93306-TC; 99284-25; J1644; J3480; J7030

== ENCOUNTER 2018-01-05 15:02 | Inpatient (IN) | payer OTHER ==
--- NOTE | 2018-01-05 15:39 | PDOC ---
History of Present Illness - General Chief Complaint: Pain, Acute Stated Complaint: CYST Time Seen by Provider: 01/05/18 15:39 - History of Present Illness Initial Comments: 57 y/o female w/ PMH significant for HTN, DM, lung Ca s/p resection, chemo and radiation (2016), and diverticulosis who presents to the ER because of large painless discharge from her vagina today after a popping sensation felt in her pelvis. She believes that her known ovarian cysts (11 cm and 7 cms in largest dimensions bilaterally) "popped" and they started to drain. Describes two hand full of copious, green, thick, malodorous material coming from her vagina. Denies bleeding , pain, nausea, vomiting, diarrhea, or other symptoms. She was supposed to follow up with the lining parts sewer to have them removed next week. 01/05/18 16:45 Past History - Past Medical History Allergies/Adverse Reactions: Allergies Allergy/AdvReac Type Severity Reaction Status Date / Time No Known Allergies Allergy Verified 01/05/18 15:04 Home Medications: Ambulatory Orders metFORMIN HCL [Metformin HCl] 500 mg PO BID 05/02/16 Amlodipine Besylate [Norvasc -] 5 mg PO DAILY #30 tablet 12/27/17 Carvedilol [Coreg -] 12.5 mg PO BID #60 tablet 12/27/17 Ranitidine [Zantac -] 150 mg PO BID #60 tablet 12/27/17 Cancer: Yes (1YR AGO LEFT LUNG (SMALL PIECE REMOVED)) COPD: No Diabetes: Yes GI Disorders: Yes (Diverticulosis) HTN: Yes - Surgical History Lung Surgery: Yes (LEFT LUNG CANCER) Orthopedic Surgery: Yes (RIGHT ANKLE PINS 15YRS AGO) - Suicide/Smoking/Psychosocial Hx Smoking History: Former smoker Have you smoked in the past 12 months: No Number of Cigarettes Smoked Daily: 1 If you are a former smoker, when did you quit?: 2014 Information on smoking cessation initiated: No 'Breaking Loose' booklet given: 06/13/17 Hx Alcohol Use: No Drug/Substance Use Hx: Yes (Marijuana) Substance Use Type: Marijuana Hx Substance Use Treatment: No Review of Systems - Review of Systems Constitutional: No: See HPI, Chills, Diaphoresis, Fever HEENTM: No: Blurred Vision, Tearing, Cataracts Respiratory: No: Cough, Orthopnea, Shortness of Breath Cardiac (ROS): No: Chest Pain, Edema ABD/GI: No: Abdominal Distended, Constipated, Diarrhea, Nausea, Vomiting : Yes: Other (vaginal draiange). No: Burning, Dysuria, Discharge Musculoskeletal: No: Back Pain, Joint Pain, Joint Swelling Integumentary: No: Bruising, Change in Color, Lesions, Lumps Neurological: No: Headache, Numbness, Paresthesia Psychiatric: No: Anxiety, Depression Endocrine: No: Flushing, Intolerance to Cold Hematologic/Lymphatic: No: Anemia, Blood Clots, Easy Bleeding *Physical Exam - Vital Signs Last Vital Signs Temp Pulse Resp BP Pulse Ox 98.3 F 77 18 135/78 98 01/05/18 15:05 01/05/18 15:05 01/05/18 15:05 01/05/18 15:05 01/05/18 15:05 - Physical Exam General Appearance: Yes: Nourished, Appropriately Dressed. No: Apparent Distress HEENT: positive: EOMI, EMMA, Normal ENT Inspection, Normal Voice Neck: positive: Trachea midline, Normal Thyroid, Supple. negative: Tender, Rigid Respiratory/Chest: positive: Lungs Clear, Normal Breath Sounds. negative: Chest Tender, Respiratory Distress, Accessory Muscle Use Cardiovascular: positive: Regular Rhythm, Regular Rate Female Pelvic Exam: positive: cervical os closed, discharge (full bilateral adnexa and copious purulent discharge from the cervix.). negative: normal external exam, normal adnexa, CMT Gastrointestinal/Abdominal: positive: Normal Bowel Sounds, Tender, Flat, Soft Lymphatic: negative: Adenopathy, Tenderness Musculoskeletal: positive: Normal Inspection. negative: CVA Tenderness Extremity: positive: Normal Capillary Refill, Normal Inspection, Normal Range of Motion. negative: Tender Integumentary: positive: Normal Color, Dry, Warm Neurologic: positive: Fully Oriented, Alert, Normal Mood/Affect, Normal Response , Motor Strength 5/5 Moderate Sedation - Procedure Monitoring Vital Signs: Procedure Monitoring Vital Signs Temperature 98.3 F 01/05/18 15:05 Pulse Rate 77 01/05/18 15:05 Respiratory Rate 18 01/05/18 15:05 Blood Pressure 135/78 01/05/18 15:05 O2 Sat by Pulse Oximetry (%) 98 01/05/18 15:05 ED Treatment Course - LABORATORY CBC & Chemistry Diagram: 01/05/18 17:23 11/30/18 17:23 Medical Decision Making - Medical Decision Making 57 year old with copious purulent cervical discharge with known ovarian cysts. VSS and patient afebrile with normal CBC. US demonstrating bilateral large loc\\ loculated/ septated ovarian cysts. We are concerned that this may represent TOA. Given Zosyn. Will felt Abdominal/ Pelvis CT and likely call service administrator. Sound to out to Dr. Nevarez pending CT. 01/05/18 19:32 *DC/Admit/Observation/Transfer Diagnosis at time of Disposition: TOA (tubo-ovarian abscess) - Referrals Referrals: Eugene Figueroa MD [Primary Care Provider] - - Patient Instructions - Post Discharge Activity
--- NOTE | 2018-01-05 16:09 | PDOC ---
Attending Attestation - HPI HPI: 01/05/18 17:56 The patient is a 57-year-old female with past medical history significant for COPD, LUNG CA, CAD, HTN, DM, diverticulitis presents to the emergency department with a ruptured cyst earlier today. The patient reports she had a history of ovarian cyst (11 cm and 7 cm). The patient states she felt a pop sensation followed by purulent vaginal drainage. She states that she has used 2 pads today and she endorses some dyruria for these symptoms in the past by which she was placed on antibiotics. She denies fever, chills, chest pain, abdominal pain, or other urinary symptoms or changes in bowel habits. The patient reports she has an appointment with her SHIRT TURNER next week. Allergies: NKA Social history: Former smoker. Marijuana use reported. PCP: Dr. Saumya Figueroa. - Physicial Exam PE: 01/05/18 17:57 GENERAL: Awake, alert, and fully oriented, in no acute distress HEAD: No signs of trauma EYES: PERRLA, EOMI, sclera anicteric, conjunctiva clear ENT: Auricles normal inspection, hearing grossly normal, nares patent, oropharynx clear without exudates. Moist mucosa NECK: Normal ROM, supple, no lymphadenopathy, JVD, or masses LUNGS: Breath sounds equal, clear to auscultation bilaterally. No wheezes, and no crackles HEART: Regular rate and rhythm, normal S1 and S2, no murmurs, rubs or gallops ABDOMEN: Belly soft, nontender, normoactive bowel sounds. No guarding, no rebound. No masses EXTREMITIES: Normal range of motion, no edema. No clubbing or cyanosis. No cords, erythema, or tenderness NEUROLOGICAL: Cranial nerves II through XII grossly intact. Normal speech, normal gait SKIN: Warm, Dry, normal turgor, no rashes or lesions noted. PELVIC: (+) Luca yellow blood tinged pus coming from cervix Documentation prepared by Soni Jones, acting as medical affairs specialist for Noemy Pressley MD. <Soni Jones - Last Filed: 01/05/18 17:56> - Resident Resident Name: Alfred Valdez - ED Attending Attestation I have performed the following: I have examined & evaluated the patient, The case was reviewed & discussed with the resident, I agree w/resident's findings & plan, Exceptions are as noted - Medical Decision Making 01/05/18 16:09 I, Dr. Noemy Pressley, DO, attest that this document has been prepared under my direction and personally reviewed by me in its entirety. I further attest, that it accurately reflects all work, treatment, procedures and medical decision -making performed by me. 01/05/18 17:54 57yo female with recent dx of large ovarian cyst b/l -today felt a poss rupture to the L side and then had a large amount of vaginal discharge that was foul smelling -no f/c -no abd pain -no n/v/d -+dysuria -active discharge coming from the cervix on exam -will send labs, ua, ucx, wound culture, ct abd/pelvis w iv contrast, tvus -concern that ovarian cyst was abscess that has ruptured or there could be a developing fistula or abscess 01/05/18 23:[address] Maynard who will see the patient in consult call placed to Dr. Khan 01/05/18 23:[address] Khan who accepts pt to service <Noemy Pressley - Last Filed: 01/05/18 23:22> *DC/Admit/Observation/Transfer - Discharge Dispostion Decision to Admit order: Yes <Noemy Pressley - Last Filed: 01/05/18 23:22> Diagnosis at time of Disposition: Ovarian cyst, bilateral, Diverticulitis large intestine w/o perforation or abscess w/o bleeding - Discharge Dispostion Condition at time of disposition: Guarded - Referrals Referrals: Eugene Figueroa MD [Primary Care Provider] - - Patient Instructions - Post Discharge Activity
[2018-01-05 17:37] LABS: BASO % 0.5 % (0-2.0); EOS % 2.2 % (0-4.5); HEMATOCRIT 32.4 % (32.4-45.2); HEMOGLOBIN 11.5 GM/dL (10.7-15.3); LYMPH % 19.7 % (8-40); MCH 31.1 pg (25.7-33.7); MCHC 35.5 g/dl (32.0-36.0); MEAN CELL VOLUME 87.6 fl (80-96); MEAN PLT VOLUME 9.7 fl (7.5-11.1); MONO % 6.9 % (3.8-10.2); NEUT % 70.7 % (42.8-82.8); PLATELET COUNT 393 K/MM3 (134-434); RBC 3.69 M/mm3 (3.60-5.2); RDW 14.8 % (11.6-15.6); WHITE BLOOD COUNT 12.5 K/mm3 (4.0-10.0)
[2018-01-05] MEDS ORDERED: PIPERACILLIN/TAZOB 3.375 GM 3.375 GM in DEXTROSE 5%-WATER - 50 ML IVPB ONE (17:49)
[2018-01-05] MEDS ORDERED: SODIUM CHLORIDE 0.9% 1000 ML INFUS.BAG IV ONE (17:50)
[2018-01-05] MEDS ORDERED: PIPERACILLIN/TAZOB 3.375 GM 3.375 GM/50 ML BAG IVPB ONE (18:38)
--- NOTE | 2018-01-05 20:45 | PDOC ---
*Physical Exam - Vital Signs Last Vital Signs Temp Pulse Resp BP Pulse Ox 98.3 F 77 18 135/78 98 01/05/18 15:05 01/05/18 15:05 01/05/18 15:05 01/05/18 15:05 01/05/18 15:05 - Physical Exam Comments: 01/05/18 20:45 The patient was signed out to me by Dr Simon, pending CT abdomen. ED Treatment Course - LABORATORY CBC & Chemistry Diagram: 01/05/18 17:23 01/05/18 20:30 - ADDITIONAL ORDERS Additional order review: Laboratory Results 01/05/18 17:23 Sodium Cancelled Potassium Cancelled Chloride Cancelled Carbon Dioxide Cancelled Anion Gap Cancelled BUN Cancelled Creatinine Cancelled Creat Clearance w eGFR Cancelled Random Glucose Cancelled Calcium Cancelled Total Bilirubin Cancelled AST Cancelled ALT Cancelled Alkaline Phosphatase Cancelled Total Protein Cancelled Albumin Cancelled 01/05/18 17:23 RBC 3.69 MCV 87.6 MCHC 35.5 RDW 14.8 MPV 9.7 Neutrophils % 70.7 Lymphocytes % 19.7 Monocytes % 6.9 Eosinophils % 2.2 D Basophils % 0.5 - Medications Given in the ED: ED Medications Discontinued Medications Generic Name Dose Route Start Last Admin Trade Name Freq PRN Reason Stop Dose Admin Piperacillin Sod/Tazobactam 50 mls @ 100 mls/hr 01/05/18 17:49 01/05/18 18:40 Sod 3.375 gm/ Dextrose IVPB 01/05/18 18:18 100 mls/hr ONCE ONE Administration Protocol Sodium Chloride 1,000 ml 01/05/18 17:50 01/05/18 18:40 Normal Saline - IV 01/05/18 17:51 1,000 ml ONCE ONE Administration Medical Decision Making - Medical Decision Making 01/06/18 00:37 OBGYN service was called, discussed the case with Dr Maynard. Dr Khan accepted the patient to service. *DC/Admit/Observation/Transfer Diagnosis at time of Disposition: Ovarian cyst, bilateral, Diverticulitis large intestine w/o perforation or abscess w/o bleeding - Discharge Dispostion Condition at time of disposition: Guarded - Referrals - Patient Instructions - Post Discharge Activity
[2018-01-05 21:05] LABS: ALBUMIN 2.9 g/dl (3.4-5.0); ALK PHOS 89 U/L (45-117); ANION GAP 10 MMOL/L (8-16); BILIRUBIN,TOTAL 0.4 mg/dL (0.2-1); BLOOD UREA NITROGEN 8 mg/dL (7-18); CALCIUM 8.5 mg/dL (8.5-10.1); CHLORIDE 106 mmol/L (98-107); CO2 26 mmol/L (21-32); CREATININE 0.7 mg/dL (0.55-1.3); GLUCOSE,RANDOM 81 mg/dL (74-106); POTASSIUM 3.9 mmol/L (3.5-5.1); SGOT/AST 13 U/L (15-37); SGPT/ALT 16 U/L (13-61); SODIUM 142 mmol/L (136-145); TOT PROT 6.8 g/dl (6.4-8.2)
[2018-01-05 21:20] LABS: URINE APPEARANCE CLEAR; URINE BILIRUBIN NEGATIVE (<2.0 mg/dL); URINE COLOR STRAW; URINE GLUCOSE (UA) NEGATIVE (NEGATIVE); URINE KETONE NEGATIVE (NEGATIVE); URINE LEUK ESTERASE 3+ (NEGATIVE); URINE NITRITE NEGATIVE (NEGATIVE); URINE PROTEIN NEGATIVE (NEGATIVE); URINE UROBILINOGEN NEGATIVE mg/dL (0.2-1.0)
[2018-01-05 21:25] LABS: EPI CELLS RARE /HPF (FEW); URINE MUCUS RARE
[2018-01-06 06:48] LABS: BASO % 0.6 % (0-2.0); EOS % 2.9 % (0-4.5); HEMATOCRIT 30.9 % (32.4-45.2); HEMOGLOBIN 10.4 GM/dL (10.7-15.3); LYMPH % 26.4 % (8-40); MCH 29.5 pg (25.7-33.7); MCHC 33.6 g/dl (32.0-36.0); MEAN CELL VOLUME 87.7 fl (80-96); MEAN PLT VOLUME 8.9 fl (7.5-11.1); MONO % 6.8 % (3.8-10.2); NEUT % 63.3 % (42.8-82.8); PLATELET COUNT 287 K/MM3 (134-434); RBC 3.52 M/mm3 (3.60-5.2); RDW 14.5 % (11.6-15.6); WHITE BLOOD COUNT 7.2 K/mm3 (4.0-10.0)
[2018-01-06] MEDS ORDERED: PIPERACILLIN/TAZOB 3.375 GM 3.375 GM/50 ML BAG IVPB ONE ×2 (06:58→14:41)
[2018-01-06] MEDS: PIPERACILLIN/TAZOB 3.375 GM 3.375 GM in DEXTROSE 5%-WATER - 50 ML IVPB SCH ×2 (07:05→14:42)
[2018-01-06 07:12] LABS: ALBUMIN 2.7 g/dl (3.4-5.0); ALK PHOS 82 U/L (45-117); ANION GAP 8 MMOL/L (8-16); BILIRUBIN,TOTAL 0.6 mg/dL (0.2-1); BLOOD UREA NITROGEN 6 mg/dL (7-18); CALCIUM 8.4 mg/dL (8.5-10.1); CHLORIDE 104 mmol/L (98-107); CO2 28 mmol/L (21-32); CREATININE 0.7 mg/dL (0.55-1.3); GLUCOSE,RANDOM 93 mg/dL (74-106); POTASSIUM 3.7 mmol/L (3.5-5.1); SGOT/AST 11 U/L (15-37); SGPT/ALT 16 U/L (13-61); SODIUM 140 mmol/L (136-145); TOT PROT 6.5 g/dl (6.4-8.2)
[2018-01-06] MEDS: INSULIN SLIDING SCALE (NOVOLOG) 1 VIAL SQ SCH ×4 (08:20→21:55)
[2018-01-06] MEDS ORDERED: metFORMIN HCL 500 MG TABLET (FP) ONE (08:58)
[2018-01-06] MEDS: metFORMIN HCL 500 MG TABLET (FP) PO SCH ×4 (08:59→16:40)
[2018-01-06] MEDS: amLODIPine BESYLATE 5 MG TABLET (FP) PO SCH (09:19)
[2018-01-06] MEDS: HEPARIN NA (PORCINE) 5,000 UNITS/ML 1ML VIAL SQ SCH ×2 (09:19→21:57)
[2018-01-06] MEDS: RANITIDINE HCL 150 MG TABLET (FP) PO SCH ×2 (09:19→21:57)
[2018-01-06] MEDS: CARVEDILOL 12.5 MG TABLET (FP) PO SCH ×2 (09:19→21:57)
--- NOTE | 2018-01-06 17:32 | CON.OBG ---
Consult Consult Specialty:: PIG MACHINE OPERATOR HELPER Reason for Consultation:: Pelvic collections - History of Present Illness Chief Complaint: Pelvic cyst History of Present Illness: 57 y/o female w/ PMH significant for HTN, DM, lung Ca s/p resection, chemo and radiation (2015), and diverticulosis who presents to the ER because of large painless discharge from her vagina today after a popping sensation felt in her pelvis. She believes that her known ovarian cysts (11 cm and 7 cms in largest dimensions bilaterally) "popped" and they started to drain. Describes two hand full of copious, green, thick, malodorous material coming from her vagina. Denies bleeding , pain, nausea, vomiting, diarrhea, or other symptoms. PIG MACHINE OPERATOR HELPER consulted I came to see patient, she's lying comfortably in bed. She denies any abdominal pain nor persistent vaginal discharge. She has one child and admits to prior hysterectomy for fibroid uterus. She states that she only has one ovary. - Past Medical History Cardio/Vascular: Yes: CAD (reported prior [place] 2006 treated medically), HTN Pulmonary: Yes: Other (h/o Left Upper lobe Lung cancer , s/p resection ( 2014) , chemotherapy & radiation as per resident notes ) Gastrointestinal: Yes: Diverticulitis ...: No ...Para: 1 Endocrine: Yes: Diabetes Mellitus - Past Surgical History Past Surgical History: Yes: Hysterectomy - Alcohol/Substance Use Hx Alcohol Use: No History of Substance Use: reports: Marijuana - Smoking History Smoking history: Former smoker Have you smoked in the past 12 months: No Aproximately how many cigarettes per day: 1 If you are a former smoker, when did you quit?: 2014 - Social History Usual Living Arrangement: With Spouse ADL: Independent History of Recent Travel: No Home Medications - Allergies Allergies/Adverse Reactions: Allergies Allergy/AdvReac Type Severity Reaction Status Date / Time No Known Allergies Allergy Verified 01/05/18 15:04 - Home Medications Home Medications: Ambulatory Orders metFORMIN HCL [Metformin HCl] 500 mg PO BID 05/02/16 Amlodipine Besylate [Norvasc -] 5 mg PO DAILY #30 tablet 12/27/17 Carvedilol [Coreg -] 12.5 mg PO BID #60 tablet 12/27/17 Ranitidine [Zantac -] 150 mg PO BID #60 tablet 12/27/17 Family Disease History - Family Disease History Family History: Unremarkable Family Disease History: Diabetes: Father, Mother Review of Systems - Review of Systems Constitutional: denies: Chills, Diaphoresis, Fever Eyes: reports: No Symptoms HENT: reports: No Symptoms Neck: reports: No Symptoms Cardiovascular: denies: Chest Pain Respiratory: reports: No Symptoms Gastrointestinal: denies: Bloating, Indigestion, Vomiting Genitourinary: reports: No Symptoms Breasts: reports: No Symptoms Reported Musculoskeletal: reports: No Symptoms Neurological: reports: No Symptoms Psychiatric: reports: No Symptoms Pain Intensity: 0 Physical Exam-PIG MACHINE OPERATOR HELPER Vital Signs: Vital Signs Temperature 97.8 F 01/06/18 17:09 Pulse Rate 50 L 01/06/18 17:09 Respiratory Rate 18 01/06/18 17:09 Blood Pressure 127/54 L 01/06/18 17:09 O2 Sat by Pulse Oximetry (%) 97 01/06/18 17:09 Constitutional: No: No Distress Eyes: Yes: Conjunctiva Clear HENT: Yes: Atraumatic Neck: Yes: Supple Cardiovascular: Yes: Regular Rate and Rhythm Respiratory: No: Orthopnea, SOB on Exertion, Tachypnea Gastrointestinal: Yes: Normal Bowel Sounds External Genitalia: Yes: Normal Vaginal Exam: Yes: Normal Breast(s): Yes: WNL Extremities: Yes: WNL Neurological: Yes: Alert, Oriented ...Motor Strength: WNL Psychiatric: Yes: Alert, Oriented Labs: CBC, BMP 01/06/18 06:05 01/06/18 06:05 Assessment/Plan Adnexa mass Personal h/o lung cancer Personal h/o hysterecromy and unilateral oophorectomy R/O ovarian neoplasm F/U tumor markers F/U with PIG MACHINE OPERATOR HELPER as outpatient
--- NOTE | 2018-01-06 17:42 | HP ---
Admitting History and Physical - Past Medical History Cardiovascular: Yes: CAD (reported prior [place] 2006 treated medically), HTN Pulmonary: Yes: Other (h/o Left Upper lobe Lung cancer , s/p resection ( 2014) , chemotherapy & radiation as per resident notes ) Gastrointestinal: Yes: Diverticulitis ...: No ...Para: 1 Heme/Onc: Yes: Other (h/o chemotherapy ) Endocrine: Yes: Diabetes Mellitus - Past Surgical History Past Surgical History: Yes: Hysterectomy - Smoking History Smoking history: Former smoker Have you smoked in the past 12 months: No Aproximately how many cigarettes per day: 1 If you are a former smoker, when did you quit?: 2014 - Alcohol/Substance Use Hx Alcohol Use: No History of Substance Use: reports: Marijuana - Social History ADL: Independent History of Recent Travel: No Home Medications - Allergies Allergies/Adverse Reactions: Allergies Allergy/AdvReac Type Severity Reaction Status Date / Time No Known Allergies Allergy Verified 01/05/18 15:04 - Home Medications Home Medications: Ambulatory Orders metFORMIN HCL [Metformin HCl] 500 mg PO BID 05/02/16 Amlodipine Besylate [Norvasc -] 5 mg PO DAILY #30 tablet 12/27/17 Carvedilol [Coreg -] 12.5 mg PO BID #60 tablet 12/27/17 Ranitidine [Zantac -] 150 mg PO BID #60 tablet 12/27/17 Family Disease History - Family Disease History Family Disease History: Diabetes: Father, Mother Physical Examination Vital Signs: Vital Signs Temperature 97.8 F 01/06/18 17:09 Pulse Rate 50 L 01/06/18 17:09 Respiratory Rate 18 01/06/18 17:09 Blood Pressure 127/54 L 01/06/18 17:09 O2 Sat by Pulse Oximetry (%) 97 01/06/18 17:09 Labs: CBC, BMP 01/06/18 06:05 01/06/18 06:05
[2018-01-06] MEDS ORDERED: PIPERACILLIN/TAZOB 3.375 GM 3.375 GM in DEXTROSE 5%-WATER - 50 ML IVPB SCH (20:00)
[2018-01-07] MEDS: metFORMIN HCL 500 MG TABLET (FP) PO SCH ×2 (06:02→17:26)
[2018-01-07] MEDS: INSULIN SLIDING SCALE (NOVOLOG) 1 VIAL SQ SCH ×5 (06:02→21:18)
[2018-01-07] MEDS: CARVEDILOL 12.5 MG TABLET (FP) PO SCH ×2 (10:05→21:09)
[2018-01-07] MEDS: amLODIPine BESYLATE 5 MG TABLET (FP) PO SCH (10:06)
[2018-01-07] MEDS: RANITIDINE HCL 150 MG TABLET (FP) PO SCH ×2 (10:06→21:14)
--- NOTE | 2018-01-07 10:06 | CON.CARD ---
Consult Consult Specialty:: Cardiology consultation - coverage for dr. Tom Reason for Consultation:: bradycardia - History of Present Illness History of Present Illness: The patient is a 57-year-old female with past medical history significant for COPD, LUNG CA, CAD, HTN, DM, diverticulitis presents to the emergency department with a ruptured cyst earlier today. The patient reports she had a history of ovarian cyst (11 cm and 7 cm). The patient states she felt a pop sensation followed by purulent vaginal drainage. She states that she has used 2 pads today and she endorses some dyruria for these symptoms in the past by which she was placed on antibiotics. She denies fever, chills, chest pain, abdominal pain, or other urinary symptoms or changes in bowel habits. The patient reports she has an appointment with her MARKING CLERK next week. Allergies: NKA Social history: Former smoker. Marijuana use reported. PCP: Dr. Saumya Figueroa. - Past Medical History Cardio/Vascular: Yes: CAD (reported prior [place] 2006 treated medically), HTN Pulmonary: Yes: Other (h/o Left Upper lobe Lung cancer , s/p resection ( 2014) , chemotherapy & radiation as per resident notes ) Gastrointestinal: Yes: Diverticulitis ...: No Endocrine: Yes: Diabetes Mellitus - Past Surgical History Past Surgical History: Yes: Hysterectomy - Alcohol/Substance Use Hx Alcohol Use: No History of Substance Use: reports: Marijuana - Smoking History Smoking history: Former smoker Have you smoked in the past 12 months: No Aproximately how many cigarettes per day: 1 If you are a former smoker, when did you quit?: 2014 - Social History Usual Living Arrangement: With Spouse ADL: Independent History of Recent Travel: No Home Medications - Allergies Allergies/Adverse Reactions: Allergies Allergy/AdvReac Type Severity Reaction Status Date / Time No Known Allergies Allergy Verified 01/05/18 15:04 - Home Medications Home Medications: Ambulatory Orders metFORMIN HCL [Metformin HCl] 500 mg PO BID 05/02/16 Amlodipine Besylate [Norvasc -] 5 mg PO DAILY #30 tablet 12/27/17 Carvedilol [Coreg -] 12.5 mg PO BID #60 tablet 12/27/17 Ranitidine [Zantac -] 150 mg PO BID #60 tablet 12/27/17 Family Disease History - Family Disease History Family Disease History: Diabetes: Father, Mother Review of Systems - Review of Systems Constitutional: reports: No Symptoms Eyes: reports: No Symptoms HENT: reports: No Symptoms Neck: reports: No Symptoms Cardiovascular: reports: No Symptoms Respiratory: reports: No Symptoms Gastrointestinal: reports: No Symptoms Genitourinary: reports: Pain Breasts: reports: No Symptoms Reported Musculoskeletal: reports: No Symptoms Integumentary: reports: No Symptoms Neurological: reports: No Symptoms Endocrine: reports: No Symptoms Hematology/Lymphatic: reports: No Symptoms Psychiatric: reports: No Symptoms Vital Signs: Vital Signs Temperature 97.7 F 01/07/18 06:00 Pulse Rate 41 L 01/07/18 06:00 Respiratory Rate 18 01/07/18 06:00 Blood Pressure 125/56 L 01/07/18 06:00 O2 Sat by Pulse Oximetry (%) 99 01/06/18 21:00 Constitutional: Yes: Well Nourished, No Distress, Calm Eyes: Yes: WNL, Conjunctiva Clear, EOM Intact HENT: Yes: WNL, Atraumatic, Normocephalic Neck: Yes: WNL, Supple, Trachea Midline Respiratory: Yes: WNL, Regular, CTA Bilaterally Gastrointestinal: Yes: WNL, Normal Bowel Sounds Renal/: Yes: WNL Cardiovascular: Yes: WNL, Regular Rate and Rhythm Heart Sounds: Yes: S1, S2 Musculoskeletal: Yes: WNL Extremities: Yes: WNL Integumentary: Yes: WNL Neurological: Yes: WNL, Alert, Oriented ...Motor Strength: WNL Psychiatric: Yes: WNL, Alert, Oriented - Other Data Labs, Other Data: CBC, BMP 01/06/18 06:05 01/06/18 06:05 Laboratory Tests 01/05/18 01/05/18 01/05/18 17:23 17:23 20:30 WBC 12.5 H RBC 3.69 Hgb 11.5 Hct 32.4 D MCV 87.6 MCH 31.1 MCHC 35.5 RDW 14.8 Plt Count 393 D MPV 9.7 Absolute Neuts (auto) 8.8 H Neutrophils % 70.7 Lymphocytes % 19.7 Monocytes % 6.9 Eosinophils % 2.2 D Basophils % 0.5 Nucleated RBC % 0 Sodium Cancelled 142 Potassium Cancelled 3.9 Chloride Cancelled 106 Carbon Dioxide Cancelled 26 Anion Gap Cancelled 10 BUN Cancelled 8 Creatinine Cancelled 0.7 Creat Clearance w eGFR Cancelled > 60 POC Glucometer Random Glucose Cancelled 81 Lactic Acid Calcium Cancelled 8.5 Total Bilirubin Cancelled 0.4 AST Cancelled 13 L ALT Cancelled 16 Alkaline Phosphatase Cancelled 89 Total Protein Cancelled 6.8 Albumin Cancelled 2.9 L Urine Color Urine Appearance Urine pH Ur Specific [place] Urine Protein Urine Glucose (UA) Urine Ketones Urine Blood Urine Nitrite Urine Bilirubin Urine Urobilinogen Ur Leukocyte Esterase Urine WBC (Auto) Urine RBC (Auto) Ur Epithelial Cells Urine Mucus 01/05/18 01/06/18 01/06/18 21:00 06:05 06:05 WBC 7.2 RBC 3.52 L Hgb 10.4 L Hct 30.9 L MCV 87.7 MCH 29.5 MCHC 33.6 RDW 14.5 Plt Count 287 D MPV 8.9 Absolute Neuts (auto) 4.6 Neutrophils % 63.3 Lymphocytes % 26.4 D Monocytes % 6.8 Eosinophils % 2.9 Basophils % 0.6 Nucleated RBC % 0 Sodium 140 Potassium 3.7 Chloride 104 Carbon Dioxide 28 Anion Gap 8 BUN 6 L Creatinine 0.7 Creat Clearance w eGFR > 60 POC Glucometer Random Glucose 93 Lactic Acid Calcium 8.4 L Total Bilirubin 0.6 AST 11 L ALT 16 Alkaline Phosphatase 82 Total Protein 6.5 Albumin 2.7 L Urine Color Straw Urine Appearance Clear Urine pH 7.0 Ur Specific [place] 1.003 L Urine Protein Negative Urine Glucose (UA) Negative Urine Ketones Negative Urine Blood 2+ H Urine Nitrite Negative Urine Bilirubin Negative Urine Urobilinogen Negative Ur Leukocyte Esterase 3+ H Urine WBC (Auto) 59 Urine RBC (Auto) 11 Ur Epithelial Cells Rare Urine Mucus Rare 01/06/18 01/06/18 01/06/18 06:05 08:03 11:21 WBC RBC Hgb Hct MCV MCH MCHC RDW Plt Count MPV Absolute Neuts (auto) Neutrophils % Lymphocytes % Monocytes % Eosinophils % Basophils % Nucleated RBC % Sodium Potassium Chloride Carbon Dioxide Anion Gap BUN Creatinine Creat Clearance w eGFR POC Glucometer [phone] Random Glucose Lactic Acid 0.9 Calcium Total Bilirubin AST ALT Alkaline Phosphatase Total Protein Albumin Urine Color Urine Appearance Urine pH Ur Specific [place] Urine Protein Urine Glucose (UA) Urine Ketones Urine Blood Urine Nitrite Urine Bilirubin Urine Urobilinogen Ur Leukocyte Esterase Urine WBC (Auto) Urine RBC (Auto) Ur Epithelial Cells Urine Mucus 01/06/18 01/06/18 01/07/18 16:38 21:45 05:31 WBC RBC Hgb Hct MCV MCH MCHC RDW Plt Count MPV Absolute Neuts (auto) Neutrophils % Lymphocytes % Monocytes % Eosinophils % Basophils % Nucleated RBC % Sodium Potassium Chloride Carbon Dioxide Anion Gap BUN Creatinine Creat Clearance w eGFR POC Glucometer 136 141 138 Random Glucose Lactic Acid Calcium Total Bilirubin AST ALT Alkaline Phosphatase Total Protein Albumin Urine Color Urine Appearance Urine pH Ur Specific [place] Urine Protein Urine Glucose (UA) Urine Ketones Urine Blood Urine Nitrite Urine Bilirubin Urine Urobilinogen Ur Leukocyte Esterase Urine WBC (Auto) Urine RBC (Auto) Ur Epithelial Cells Urine Mucus Imaging - Results Chest X-ray: Image Reviewed (no i/e) EKG: Image Reviewed (s anastasia incomplete rbbb lvh st depressions/repolarizations) Problem List - Problems (1) Bilateral ovarian cysts Code(s): N83.201 - UNSPECIFIED OVARIAN CYST, RIGHT SIDE; N83.202 - UNSPECIFIED OVARIAN CYST, LEFT SIDE (2) Diverticulitis large intestine w/o perforation or abscess w/o bleeding Code(s): K57.32 - DVTRCLI OF LG INT W/O PERFORATION OR ABSCESS W/O BLEEDING (3) ROLF (acute kidney injury) Code(s): N17.9 - ACUTE KIDNEY FAILURE, UNSPECIFIED (4) Abnormal ECG Code(s): R94.31 - ABNORMAL ELECTROCARDIOGRAM [ECG] [EKG] (5) Chest pain Code(s): R07.9 - CHEST PAIN, UNSPECIFIED (6) Colitis Code(s): K52.9 - NONINFECTIVE GASTROENTERITIS AND COLITIS, UNSPECIFIED (7) Hypertensive urgency Code(s): I16.0 - HYPERTENSIVE URGENCY (8) Hypokalemia Code(s): E87.6 - HYPOKALEMIA (9) Leukocytosis Code(s): D72.829 - ELEVATED WHITE BLOOD CELL COUNT, UNSPECIFIED Qualifiers: Leukocytosis type: unspecified Qualified Code(s): D72.829 - Elevated white blood cell count, unspecified (10) Nausea Code(s): R11.0 - NAUSEA (11) Nausea & vomiting Code(s): R11.2 - NAUSEA WITH VOMITING, UNSPECIFIED Qualifiers: Vomiting type: bilious vomiting Qualified Code(s): R11.14 - Bilious vomiting (12) Diabetes Code(s): E11.9 - TYPE 2 DIABETES MELLITUS WITHOUT COMPLICATIONS Qualifiers: Diabetes mellitus type: type 2 Chronic kidney disease stage: unspecified stage (13) History of lung cancer Code(s): Z85.118 - PERSONAL HISTORY OF MALIGNANT NEOPLASM OF BRONCHUS AND LUNG (14) Hypertension Code(s): I10 - ESSENTIAL (PRIMARY) HYPERTENSION Qualifiers: Hypertension type: unspecified Qualified Code(s): I10 - Essential (primary ) hypertension Assessment/Plan 57-year-old female with past medical history significant for COPD, LUNG CA, CAD , HTN, DM, diverticulitis presents to the emergency department with a ruptured cyst earlier today. The patient reports she had a history of ovarian cyst (11 cm and 7 cm). The patient states she felt a pop sensation diagnosed with bradycardia. Plan LICENSED PROSTHETIST/ORTHOTIST consult re ruptured ovarian cyst, Bradycardia mst likely due to carvedilol - patient is asymptomatic. 24 Holter [facility] medical rx f/u ekg obtain the records of prior ischemic workup. coverage for dr. Tom
[2018-01-07] MEDS: HEPARIN NA (PORCINE) 5,000 UNITS/ML 1ML VIAL SQ SCH ×2 (10:07→21:18)
--- NOTE | 2018-01-07 13:52 | CON.ID ---
Consult Consult Specialty:: infectious diseases Referred by:: - Past Medical History Cardio/Vascular: Yes: CAD (reported prior [place] 2006 treated medically), HTN Pulmonary: Yes: Other (h/o Left Upper lobe Lung cancer , s/p resection ( 2014) , chemotherapy & radiation as per resident notes ) Gastrointestinal: Yes: Diverticulitis ...: No Endocrine: Yes: Diabetes Mellitus - Past Surgical History Past Surgical History: Yes: Hysterectomy - Alcohol/Substance Use Hx Alcohol Use: No History of Substance Use: reports: Marijuana - Smoking History Smoking history: Former smoker Have you smoked in the past 12 months: No Aproximately how many cigarettes per day: 1 If you are a former smoker, when did you quit?: 2014 - Social History Usual Living Arrangement: With Spouse ADL: Independent History of Recent Travel: No Home Medications - Allergies Allergies/Adverse Reactions: Allergies Allergy/AdvReac Type Severity Reaction Status Date / Time No Known Allergies Allergy Verified 01/05/18 15:04 - Home Medications Home Medications: Ambulatory Orders metFORMIN HCL [Metformin HCl] 500 mg PO BID 05/02/16 Amlodipine Besylate [Norvasc -] 5 mg PO DAILY #30 tablet 12/27/17 Carvedilol [Coreg -] 12.5 mg PO BID #60 tablet 12/27/17 Ranitidine [Zantac -] 150 mg PO BID #60 tablet 12/27/17 Family Disease History - Family Disease History Family Disease History: Diabetes: Father, Mother Physical Exam Vital Signs: Vital Signs Temperature 97.3 F L 01/07/18 10:00 Pulse Rate 58 L 01/07/18 10:00 Respiratory Rate 18 01/07/18 10:00 Blood Pressure 141/63 01/07/18 10:00 O2 Sat by Pulse Oximetry (%) 99 01/07/18 09:00 Labs: CBC, BMP 01/06/18 06:05 01/06/18 06:05
[2018-01-07] MEDS ORDERED: DEXTROSE 5%-WATER - 50 ML IVPB ONE ×2 (14:47→17:21)
[2018-01-07] MEDS ORDERED: PIPERACILLIN/TAZOBACTAM 3.375 GM VIAL IVPB ONE ×2 (14:47→17:21)
[2018-01-07] MEDS: DOCUSATE SODIUM 100 MG CAPSULE (FP) PO SCH ×2 (15:18→21:13)
[2018-01-07] MEDS: PIPERACILLIN/TAZOB 3.375 GM 3.375 GM in DEXTROSE 5%-WATER - 50 ML IVPB SCH ×2 (15:18→18:21)
--- NOTE | 2018-01-07 20:10 | PN ---
Progress Note, Physician History of Present Illness: No new complaints - Current Medication List Current Medications: Active Medications Amlodipine Besylate (Norvasc -) 5 mg PO DAILY [facility] Last Admin: 01/07/18 10:06 Dose: 5 mg Carvedilol (Coreg -) 12.5 mg PO BID [facility] Last Admin: 01/07/18 10:05 Dose: Not Given Docusate Sodium (Colace -) 100 mg PO TID [facility] Last Admin: 01/07/18 15:18 Dose: 100 mg Heparin Sodium (Porcine) (Heparin -) 5,000 unit SQ BID [facility] Last Admin: 01/07/18 10:07 Dose: Not Given Piperacillin Sod/Tazobactam (Sod 3.375 gm/ Dextrose) 50 mls @ 100 mls/hr IVPB Q8H-IV [facility]; Protocol Last Admin: 01/07/18 18:21 Dose: 100 mls/hr Insulin Aspart (Novolog Vial Sliding Scale -) 1 vial SQ ACHS [facility]; Protocol Last Admin: 01/07/18 16:47 Dose: Not Given Metformin HCl (Glucophage -) 500 mg PO BIDAC [facility] Last Admin: 01/07/18 17:26 Dose: 500 mg Ranitidine HCl (Zantac -) 150 mg PO BID [facility] Last Admin: 01/07/18 10:06 Dose: 150 mg - Objective Vital Signs: Vital Signs Temperature 97.9 F 01/07/18 17:49 Pulse Rate 51 L 01/07/18 17:49 Respiratory Rate 18 01/07/18 17:49 Blood Pressure 129/66 01/07/18 17:49 O2 Sat by Pulse Oximetry (%) 99 01/07/18 09:00 Neck: Yes: WNL, Supple Cardiovascular: Yes: WNL, Regular Rate and Rhythm Respiratory: Yes: WNL, Regular, CTA Bilaterally Gastrointestinal: Yes: WNL, Normal Bowel Sounds, Soft Labs: CBC, BMP 01/06/18 06:05 01/06/18 06:05 Problem List - Problems (1) Abdominal pain Assessment/Plan: Adenal mass ?infectious Cont IV zosyn Pt also has h/o ?Hysterectomy and unilateral oopherectomy However ct scan abd showed complex adenexal fluids or loculated ascites vs cystic structures vs abscesses and ?fistula formation in uterine cavity Will need MRI pelvis for further imaging Code(s): R10.9 - UNSPECIFIED ABDOMINAL PAIN (2) Bradycardia Assessment/Plan: Heart rate improved ?Due to coreg As per cardio Code(s): R00.1 - BRADYCARDIA, UNSPECIFIED (3) Diabetes Assessment/Plan: Cont sliding scale w/ coverage Code(s): E11.9 - TYPE 2 DIABETES MELLITUS WITHOUT COMPLICATIONS Qualifiers: Diabetes mellitus type: type 2 Chronic kidney disease stage: unspecified stage (4) Hypertension Assessment/Plan: BP stable Cont norvasc/coreg Code(s): I10 - ESSENTIAL (PRIMARY) HYPERTENSION Qualifiers: Hypertension type: unspecified Qualified Code(s): I10 - Essential (primary ) hypertension
[2018-01-07] MEDS ORDERED: INSULIN (NOVOLOG) ASPART 100 UNITS/ML 10ML VIAL ONE (21:17)
[2018-01-08] MEDS ORDERED: PIPERACILLIN/TAZOBACTAM 3.375 GM VIAL IVPB ONE ×3 (00:39→17:34)
[2018-01-08] MEDS ORDERED: DEXTROSE 5%-WATER - 50 ML IVPB ONE ×3 (00:39→17:35)
[2018-01-08] MEDS: PIPERACILLIN/TAZOB 3.375 GM 3.375 GM in DEXTROSE 5%-WATER - 50 ML IVPB SCH ×5 (02:15→18:28)
[2018-01-08] MEDS: INSULIN SLIDING SCALE (NOVOLOG) 1 VIAL SQ SCH ×4 (06:01→22:47)
[2018-01-08] MEDS: DOCUSATE SODIUM 100 MG CAPSULE (FP) PO SCH ×3 (06:04→23:50)
[2018-01-08] MEDS: metFORMIN HCL 500 MG TABLET (FP) PO SCH ×2 (06:04→17:37)
[2018-01-08 07:36] LABS: BASO % 0.6 % (0-2.0); EOS % 3.2 % (0-4.5); HEMATOCRIT 32.3 % (32.4-45.2); HEMOGLOBIN 11.3 GM/dL (10.7-15.3); LYMPH % 27.6 % (8-40); MCH 30.6 pg (25.7-33.7); MCHC 34.9 g/dl (32.0-36.0); MEAN CELL VOLUME 87.8 fl (80-96); MONO % 5.9 % (3.8-10.2); NEUT % 62.7 % (42.8-82.8); PLATELET COUNT 313 K/MM3 (134-434); RBC 3.68 M/mm3 (3.60-5.2); RDW 15.1 % (11.6-15.6); WHITE BLOOD COUNT 5.9 K/mm3 (4.0-10.0)
[2018-01-08 08:12] LABS: ALBUMIN 2.9 g/dl (3.4-5.0); ALK PHOS 80 U/L (45-117); ANION GAP 9 MMOL/L (8-16); BILIRUBIN,TOTAL 0.6 mg/dL (0.2-1); BLOOD UREA NITROGEN 10 mg/dL (7-18); CALCIUM 8.7 mg/dL (8.5-10.1); CHLORIDE 103 mmol/L (98-107); CO2 26 mmol/L (21-32); CREATININE 0.9 mg/dL (0.55-1.3); GLUCOSE,RANDOM 111 mg/dL (74-106); POTASSIUM 3.9 mmol/L (3.5-5.1); SGOT/AST 13 U/L (15-37); SGPT/ALT 17 U/L (13-61); SODIUM 139 mmol/L (136-145)
--- NOTE | 2018-01-08 08:52 | PN ---
Progress Note, Physician Chief Complaint: Admitted with adnexal mass - Current Medication List Current Medications: Active Medications Amlodipine Besylate (Norvasc -) 5 mg PO DAILY [facility] Last Admin: 01/07/18 10:06 Dose: 5 mg Carvedilol (Coreg -) 12.5 mg PO BID [facility] Last Admin: 01/07/18 21:09 Dose: Not Given Docusate Sodium (Colace -) 100 mg PO TID [facility] Last Admin: 01/08/18 06:04 Dose: 100 mg Heparin Sodium (Porcine) (Heparin -) 5,000 unit SQ BID [facility] Last Admin: 01/07/18 21:18 Dose: Not Given Piperacillin Sod/Tazobactam (Sod 3.375 gm/ Dextrose) 50 mls @ 100 mls/hr IVPB Q8H-IV [facility]; Protocol Last Admin: 01/08/18 02:15 Dose: 100 mls/hr Insulin Aspart (Novolog Vial Sliding Scale -) 1 vial SQ ACHS [facility]; Protocol Last Admin: 01/08/18 06:01 Dose: Not Given Metformin HCl (Glucophage -) 500 mg PO BIDAC [facility] Last Admin: 01/08/18 06:04 Dose: 500 mg Ranitidine HCl (Zantac -) 150 mg PO BID [facility] Last Admin: 01/07/18 21:14 Dose: 150 mg - Objective Vital Signs: Vital Signs Temperature 97.9 F 01/08/18 06:00 Pulse Rate 49 L 01/08/18 06:00 Respiratory Rate 18 01/08/18 06:00 Blood Pressure 115/61 01/08/18 06:00 O2 Sat by Pulse Oximetry (%) 98 01/07/18 21:00 Constitutional: Yes: No Distress, Calm Eyes: Yes: Conjunctiva Clear Cardiovascular: Yes: Regular Rate and Rhythm (no murmurs, rubs or gall) Respiratory: Yes: CTA Bilaterally Gastrointestinal: Yes: Soft (no rebound or guarding) Edema: No Neurological: Yes: Alert, Oriented ...Motor Strength: WNL Labs: CBC, BMP 01/08/18 06:45 01/08/18 06:45 Laboratory Tests 01/08/18 01/08/18 06:45 06:45 WBC 5.9 Hgb 11.3 Plt Count 313 Sodium 139 Potassium 3.9 BUN 10 Total Bilirubin 0.6 AST 13 L ALT 17 Alkaline Phosphatase 80 Albumin 2.9 L Assessment/Plan 57 year old female with past medical history significant for hypertension, hyperlipidemia, diabetes now admitted with an adnexal mass, and sinus bradycardia likely due to beta bloker effect. REC: 1. Further w/u adnexal mass as per MARKETING OPERATIONS ASSOCIATE and PMD 2. Hold beta sundeep, BP currently well controlled. Mild sinus anastasia- asymptomatic. 3. Check 24 hour holter. 4. DVT prophylaxis.
[2018-01-08] MEDS: RANITIDINE HCL 150 MG TABLET (FP) PO SCH ×2 (10:24→23:50)
[2018-01-08] MEDS: amLODIPine BESYLATE 5 MG TABLET (FP) PO SCH (10:24)
[2018-01-08] MEDS: CARVEDILOL 12.5 MG TABLET (FP) PO SCH ×2 (10:24→23:49)
[2018-01-08] MEDS: HEPARIN NA (PORCINE) 5,000 UNITS/ML 1ML VIAL SQ SCH ×2 (10:26→23:48)
--- NOTE | 2018-01-08 11:23 | EKG ---
Test Reason : Blood Pressure : / mmHG Vent. Rate : 044 BPM Atrial Rate : 044 BPM P-R Int : 156 ms QRS Dur : 098 ms QT Int : 476 ms P-R-T Axes : -05 026 135 degrees QTc Int : 406 ms MARKED SINUS BRADYCARDIA LEFT VENTRICULAR HYPERTROPHY WITH REPOLARIZATION ABNORMALITY CANNOT RULE OUT SEPTAL INFARCT (CITED ON OR BEFORE 24-AUG-2017) T WAVE ABNORMALITY, CONSIDER LATERAL ISCHEMIA VS STRAIN PATTERN ABNORMAL ECG WHEN COMPARED WITH ECG OF 25-DEC-2017 09:27, T WAVE INVERSION IS SEEN IN LATERAL LEADS VENT. RATE HAS DECREASED Confirmed by ROMEO LOYOLA MD ([id number]) on 01/08/2018 11:23:08 AM Referred By: Confirmed By:ROMEO LOYOLA MD
--- NOTE | 2018-01-08 11:58 | PN ---
Progress Note, Physician History of Present Illness: doing well no issues feels much better - Current Medication List Current Medications: Active Medications Amlodipine Besylate (Norvasc -) 5 mg PO DAILY [facility] Last Admin: 01/08/18 10:24 Dose: Not Given Carvedilol (Coreg -) 12.5 mg PO BID [facility] Last Admin: 01/08/18 10:24 Dose: Not Given Docusate Sodium (Colace -) 100 mg PO TID [facility] Last Admin: 01/08/18 06:04 Dose: 100 mg Heparin Sodium (Porcine) (Heparin -) 5,000 unit SQ BID [facility] Last Admin: 01/08/18 10:26 Dose: Not Given Piperacillin Sod/Tazobactam (Sod 3.375 gm/ Dextrose) 50 mls @ 100 mls/hr IVPB Q8H-IV [facility]; Protocol Last Admin: 01/08/18 10:24 Dose: 100 mls/hr Insulin Aspart (Novolog Vial Sliding Scale -) 1 vial SQ ACHS [facility]; Protocol Last Admin: 01/08/18 06:01 Dose: Not Given Metformin HCl (Glucophage -) 500 mg PO BIDAC [facility] Last Admin: 01/08/18 06:04 Dose: 500 mg Ranitidine HCl (Zantac -) 150 mg PO BID [facility] Last Admin: 01/08/18 10:24 Dose: 150 mg - Objective Vital Signs: Vital Signs Temperature 97.8 F 01/08/18 10:56 Pulse Rate 44 L 01/08/18 10:11 Respiratory Rate 20 01/08/18 10:11 Blood Pressure 125/63 01/08/18 10:11 O2 Sat by Pulse Oximetry (%) 98 01/07/18 21:00 Constitutional: Yes: No Distress, Calm, Thin Cardiovascular: Yes: Regular Rate and Rhythm Respiratory: Yes: Regular, CTA Bilaterally Gastrointestinal: Yes: Normal Bowel Sounds, Soft Musculoskeletal: Yes: WNL Extremities: Yes: WNL Neurological: Yes: Alert, Oriented Psychiatric: Yes: Alert, Oriented Labs: CBC, BMP 01/08/18 06:45 01/08/18 06:45 Assessment/Plan patient with findings now on abx feeling better Problem List - Problems (1) Abdominal pain Code(s): R10.9 - UNSPECIFIED ABDOMINAL PAIN (2) Bradycardia Code(s): R00.1 - BRADYCARDIA, UNSPECIFIED (3) Diabetes Code(s): E11.9 - TYPE 2 DIABETES MELLITUS WITHOUT COMPLICATIONS Qualifiers: Diabetes mellitus type: type 2 Chronic kidney disease stage: unspecified stage (4) Hypertension Code(s): I10 - ESSENTIAL (PRIMARY) HYPERTENSION Qualifiers: Hypertension type: unspecified Qualified Code(s): I10 - Essential (primary ) hypertension 5 uti await for configuration manager final recommendation once we ahve that will switch to oral abx rest as per the team patient improving
[2018-01-08] MEDS ORDERED: CEFUROXIME AXETIL 250 MG TABLET PO SCH (12:00)
--- NOTE | 2018-01-08 21:42 | PN ---
Progress Note, Physician - Current Medication List Current Medications: Active Medications Amlodipine Besylate (Norvasc -) 5 mg PO DAILY [facility] Last Admin: 01/08/18 10:24 Dose: Not Given Carvedilol (Coreg -) 12.5 mg PO BID [facility] Last Admin: 01/08/18 10:24 Dose: Not Given Docusate Sodium (Colace -) 100 mg PO TID [facility] Last Admin: 01/08/18 14:00 Dose: 100 mg Heparin Sodium (Porcine) (Heparin -) 5,000 unit SQ BID [facility] Last Admin: 01/08/18 10:26 Dose: Not Given Piperacillin Sod/Tazobactam (Sod 3.375 gm/ Dextrose) 50 mls @ 100 mls/hr IVPB Q8H-IV [facility]; Protocol Last Admin: 01/08/18 18:28 Dose: 100 mls/hr Insulin Aspart (Novolog Vial Sliding Scale -) 1 vial SQ ACHS [facility]; Protocol Last Admin: 01/08/18 17:33 Dose: Not Given Metformin HCl (Glucophage -) 500 mg PO BIDAC [facility] Last Admin: 01/08/18 17:37 Dose: 500 mg Ranitidine HCl (Zantac -) 150 mg PO BID [facility] Last Admin: 01/08/18 10:24 Dose: 150 mg - Objective Vital Signs: Vital Signs Temperature 98 F 01/08/18 16:54 Pulse Rate 48 L 01/08/18 16:54 Respiratory Rate 18 01/08/18 16:54 Blood Pressure 141/62 01/08/18 16:54 O2 Sat by Pulse Oximetry (%) 100 01/08/18 10:30 Labs: CBC, BMP 01/08/18 06:45 01/08/18 06:45 Problem List - Problems (1) Abdominal pain Code(s): R10.9 - UNSPECIFIED ABDOMINAL PAIN (2) Bradycardia Code(s): R00.1 - BRADYCARDIA, UNSPECIFIED (3) Diabetes Code(s): E11.9 - TYPE 2 DIABETES MELLITUS WITHOUT COMPLICATIONS Qualifiers: Diabetes mellitus type: type 2 Chronic kidney disease stage: unspecified stage (4) Hypertension Code(s): I10 - ESSENTIAL (PRIMARY) HYPERTENSION Qualifiers: Hypertension type: unspecified Qualified Code(s): I10 - Essential (primary ) hypertension
[2018-01-09] MEDS ORDERED: PIPERACILLIN/TAZOBACTAM 3.375 GM VIAL IVPB ONE ×3 (01:09→16:54)
[2018-01-09] MEDS ORDERED: DEXTROSE 5%-WATER - 50 ML IVPB ONE ×3 (01:09→16:54)
[2018-01-09] MEDS: PIPERACILLIN/TAZOB 3.375 GM 3.375 GM in DEXTROSE 5%-WATER - 50 ML IVPB SCH ×3 (02:19→17:05)
[2018-01-09] MEDS: INSULIN SLIDING SCALE (NOVOLOG) 1 VIAL SQ SCH ×4 (06:16→23:10)
[2018-01-09] MEDS: metFORMIN HCL 500 MG TABLET (FP) PO SCH ×2 (06:16→17:01)
[2018-01-09] MEDS: DOCUSATE SODIUM 100 MG CAPSULE (FP) PO SCH ×3 (06:16→23:04)
[2018-01-09] MEDS ORDERED: PT OWN MED DRAWER 7, Y5N ONE (09:18)
--- NOTE | 2018-01-09 09:33 | PN ---
Progress Note, Physician Chief Complaint: seen and examined. Comfortable. No acute distress Holter in progress - Current Medication List Current Medications: Active Medications Amlodipine Besylate (Norvasc -) 5 mg PO DAILY [facility] Last Admin: 01/08/18 10:24 Dose: Not Given Carvedilol (Coreg -) 12.5 mg PO BID [facility] Last Admin: 01/08/18 23:49 Dose: Not Given Docusate Sodium (Colace -) 100 mg PO TID [facility] Last Admin: 01/09/18 06:16 Dose: 100 mg Heparin Sodium (Porcine) (Heparin -) 5,000 unit SQ BID [facility] Last Admin: 01/08/18 23:48 Dose: Not Given Piperacillin Sod/Tazobactam (Sod 3.375 gm/ Dextrose) 50 mls @ 100 mls/hr IVPB Q8H-IV [facility]; Protocol Last Admin: 01/09/18 02:19 Dose: 100 mls/hr Insulin Aspart (Novolog Vial Sliding Scale -) 1 vial SQ ACHS [facility]; Protocol Last Admin: 01/09/18 06:16 Dose: Not Given Metformin HCl (Glucophage -) 500 mg PO BIDAC [facility] Last Admin: 01/09/18 06:16 Dose: 500 mg Ranitidine HCl (Zantac -) 150 mg PO BID [facility] Last Admin: 01/08/18 23:50 Dose: 150 mg - Objective Vital Signs: Vital Signs Temperature 98.0 F 01/09/18 06:00 Pulse Rate 52 L 01/09/18 06:00 Respiratory Rate 18 01/09/18 06:00 Blood Pressure 132/69 01/09/18 06:00 O2 Sat by Pulse Oximetry (%) 100 01/08/18 21:00 Constitutional: Yes: No Distress, Calm Eyes: Yes: Conjunctiva Clear Cardiovascular: Yes: Regular Rate and Rhythm Respiratory: Yes: CTA Bilaterally Gastrointestinal: Yes: Soft Edema: No Neurological: Yes: Alert, Oriented ...Motor Strength: WNL Labs: CBC, BMP 01/08/18 06:45 01/08/18 06:45 - ....Imaging EKG: Image Reviewed Assessment/Plan 57 year old female with past medical history significant for hypertension, hyperlipidemia, diabetes now admitted with an adnexal mass, and sinus bradycardia likely due to beta bloker effect. REC: 1. Further w/u adnexal mass as per BOOKKEEPING MANAGER and PMD 2. Hold beta sundeep, BP currently well controlled. Mild sinus anastasia- asymptomatic. 3. Check 24 hour holter-----> in progress 4. DVT prophylaxis.
[2018-01-09] MEDS: RANITIDINE HCL 150 MG TABLET (FP) PO SCH ×2 (09:51→22:59)
[2018-01-09] MEDS: amLODIPine BESYLATE 5 MG TABLET (FP) PO SCH (09:51)
[2018-01-09] MEDS: CARVEDILOL 12.5 MG TABLET (FP) PO SCH ×2 (09:52→23:12)
[2018-01-09] MEDS: HEPARIN NA (PORCINE) 5,000 UNITS/ML 1ML VIAL SQ SCH ×2 (09:53→23:12)
--- NOTE | 2018-01-09 13:33 | PN ---
Progress Note, Physician - Current Medication List Current Medications: Active Medications Amlodipine Besylate (Norvasc -) 5 mg PO DAILY [facility] Last Admin: 01/09/18 09:51 Dose: 5 mg Carvedilol (Coreg -) 12.5 mg PO BID [facility] Last Admin: 01/09/18 09:52 Dose: Not Given Docusate Sodium (Colace -) 100 mg PO TID [facility] Last Admin: 01/09/18 13:27 Dose: Not Given Heparin Sodium (Porcine) (Heparin -) 5,000 unit SQ BID [facility] Last Admin: 01/09/18 09:53 Dose: Not Given Piperacillin Sod/Tazobactam (Sod 3.375 gm/ Dextrose) 50 mls @ 100 mls/hr IVPB Q8H-IV [facility]; Protocol Last Admin: 01/09/18 09:52 Dose: 100 mls/hr Insulin Aspart (Novolog Vial Sliding Scale -) 1 vial SQ ACHS [facility]; Protocol Last Admin: 01/09/18 11:49 Dose: Not Given Metformin HCl (Glucophage -) 500 mg PO BIDAC [facility] Last Admin: 01/09/18 06:16 Dose: 500 mg Ranitidine HCl (Zantac -) 150 mg PO BID [facility] Last Admin: 01/09/18 09:51 Dose: 150 mg - Objective Vital Signs: Vital Signs Temperature 98.5 F 01/09/18 09:58 Pulse Rate 56 L 01/09/18 09:58 Respiratory Rate 18 01/09/18 09:58 Blood Pressure 140/74 01/09/18 09:58 O2 Sat by Pulse Oximetry (%) 99 01/09/18 09:00 Labs: CBC, BMP 01/08/18 06:45 01/08/18 06:45
--- NOTE | 2018-01-09 17:01 | HOL ---
Hook-up date: 2018-01-08 10:20:00 Duration: 24:00:00 Test Indications: BRADYCARDIA Medications: 08887 QRS complexes 3 Ventricular ectopics which represent <1 % of total QRS comp. 12 Supraventricular ectopics which represent <1 % of total QRS comp. * Paced QRS complexs which represent % of total QRS comp. * % of Time Classified as Noise VENTRICULAR ECTOPY 3 Isolated 0 Bigeminal Cycles 0 Couplets 0 Runs 0 Beats in Runs * Beats LONGEST at * BPM at :: -- * Beats FASTEST at * BPM at :: -- SUPRAVENTRICULAR ECTOPY 9 Isolated 0 Couplets 1 Runs 3 Beats in Runs 3 Beats LONGEST at 135 BPM at 19:15:05 2018-01-08 3 Beats FASTEST at 135 BPM at 19:15:05 2018-01-08 HEART RATES 40 MIN at 12:08:36 2018-01-08 54 AVG 85 MAX at 19:59:21 2018-01-08 LONGEST RR 1.560 secs at 04:32:51 2018-01-09 SCANNED BY LAURY BAE ON 01/09/18 The rhythm throughout the monitoring period was sinus rhythm with a minimum heart rate of 40bpm and a maximum heart rate of 85bpm for an average heart rate of 54bpm. There were occasional APC's and PVCs. There was one run of PSVT lasting 4 beats at a heart rate of 135bpm which appears likely consistent with atrial tachycardia. There were no other significant arrhythmias recorded. There were no significant pauses recorded. Confirmed by MD SANDEE, CINDY ([id number]) on 01/09/2018 4:57:55 PM Referred By: niru monteiro Overread By: CINDY IGNACIO MD
--- NOTE | 2018-01-09 22:31 | PN ---
Progress Note, Physician - Current Medication List Current Medications: Active Medications Amlodipine Besylate (Norvasc -) 5 mg PO DAILY [facility] Last Admin: 01/09/18 09:51 Dose: 5 mg Carvedilol (Coreg -) 12.5 mg PO BID [facility] Last Admin: 01/09/18 09:52 Dose: Not Given Docusate Sodium (Colace -) 100 mg PO TID [facility] Last Admin: 01/09/18 13:27 Dose: Not Given Heparin Sodium (Porcine) (Heparin -) 5,000 unit SQ BID [facility] Last Admin: 01/09/18 09:53 Dose: Not Given Piperacillin Sod/Tazobactam (Sod 3.375 gm/ Dextrose) 50 mls @ 100 mls/hr IVPB Q8H-IV [facility]; Protocol Last Admin: 01/09/18 17:05 Dose: 100 mls/hr Insulin Aspart (Novolog Vial Sliding Scale -) 1 vial SQ ACHS [facility]; Protocol Last Admin: 01/09/18 16:04 Dose: Not Given Metformin HCl (Glucophage -) 500 mg PO BIDAC [facility] Last Admin: 01/09/18 17:01 Dose: 500 mg Ranitidine HCl (Zantac -) 150 mg PO BID [facility] Last Admin: 01/09/18 09:51 Dose: 150 mg - Objective Vital Signs: Vital Signs Temperature 98.0 F 01/09/18 18:33 Pulse Rate 59 L 01/09/18 18:33 Respiratory Rate 18 01/09/18 18:33 Blood Pressure 134/74 01/09/18 18:33 O2 Sat by Pulse Oximetry (%) 99 01/09/18 09:00 Labs: CBC, BMP 01/08/18 06:45 01/08/18 06:45 Problem List - Problems (1) Abdominal pain Code(s): R10.9 - UNSPECIFIED ABDOMINAL PAIN (2) Bradycardia Code(s): R00.1 - BRADYCARDIA, UNSPECIFIED (3) Diabetes Code(s): E11.9 - TYPE 2 DIABETES MELLITUS WITHOUT COMPLICATIONS Qualifiers: Diabetes mellitus type: type 2 Chronic kidney disease stage: unspecified stage (4) Hypertension Code(s): I10 - ESSENTIAL (PRIMARY) HYPERTENSION Qualifiers: Hypertension type: unspecified Qualified Code(s): I10 - Essential (primary ) hypertension
[2018-01-10] MEDS ORDERED: PIPERACILLIN/TAZOBACTAM 3.375 GM VIAL IVPB ONE ×2 (02:08→10:11)
[2018-01-10] MEDS ORDERED: DEXTROSE 5%-WATER - 50 ML IVPB ONE ×2 (02:08→10:11)
[2018-01-10] MEDS: PIPERACILLIN/TAZOB 3.375 GM 3.375 GM in DEXTROSE 5%-WATER - 50 ML IVPB SCH ×2 (02:31→10:28)
[2018-01-10] MEDS: DOCUSATE SODIUM 100 MG CAPSULE (FP) PO SCH ×3 (06:01→21:50)
[2018-01-10] MEDS: INSULIN SLIDING SCALE (NOVOLOG) 1 VIAL SQ SCH ×4 (06:04→21:51)
[2018-01-10] MEDS: metFORMIN HCL 500 MG TABLET (FP) PO SCH (06:07)
--- NOTE | 2018-01-10 09:26 | CON.CARD ---
Cardiology Consult (text) - Consultation Consultation Note: Holter reviewed. Normal sinus underlying rhythm Mild sinus anastasia and a very short, self limited run atrial tach which does not require any specific treatment at this time unless she becomes symptomatic or if the runs become prolonged/ sustained in future. There were no sig pauses and sig V ectopy. BP in 130s/70s and has been stable in that range. If BP requires treatment, avoid any AV anuja agents (beta blockers, Diltiazem, Verapamil) Will sign off today. Please call again as/if needed. Thank you.
[2018-01-10] MEDS: HEPARIN NA (PORCINE) 5,000 UNITS/ML 1ML VIAL SQ SCH ×3 (10:28→21:51)
[2018-01-10] MEDS: CARVEDILOL 12.5 MG TABLET (FP) PO SCH ×3 (10:29→21:53)
[2018-01-10] MEDS: RANITIDINE HCL 150 MG TABLET (FP) PO SCH ×2 (10:30→21:50)
[2018-01-10] MEDS: amLODIPine BESYLATE 5 MG TABLET (FP) PO SCH (10:30)
--- NOTE | 2018-01-10 12:44 | PN ---
Physical Exam: SUBJECTIVE: Patient seen and examined; pain is controlled, tolerating food. Has no new complaints. Pelvis MRI prelim reading is back; will be discussed under A/P; urology consult pending. CV consult noted. Will discuss with Dr. Lutz regarding antibiotics. Afebrile and hemodynamically stable; no labs OBJECTIVE: Vital Signs Period Temp Pulse Resp BP Sys/Maxwell Pulse Ox Last 24 Hr 98.0 F-98.4 F 48-61 18-20 133-138/64-76 100 GENERAL: The patient is awake, alert, and fully oriented, in no acute distress. HEAD: Normal with no signs of trauma. EYES: PERRL, extraocular movements intact, sclera anicteric, conjunctiva clear. No ptosis. ENT: Ears normal, nares patent, oropharynx clear without exudates, moist mucous membranes. NECK: Trachea midline, full range of motion, supple. LUNGS: Breath sounds equal, clear to auscultation bilaterally, no wheezes, no crackles, no accessory muscle use. HEART: Regular rate and rhythm, S1, S2 without murmur, rub or gallop. ABDOMEN: Soft, nontender, nondistended, normoactive bowel sounds, no guarding, no rebound, no hepatosplenomegaly, no masses. EXTREMITIES: 2+ pulses, warm, well-perfused, no edema. NEUROLOGICAL: Cranial nerves II through XII grossly intact. Normal speech, gait not observed. PSYCH: Normal mood, normal affect. SKIN: Warm, dry, normal turgor, no rashes or lesions noted Laboratory Results - last 24 hr 01/05/18 01/09/18 01/10/18 21:00 16:03 06:00 POC Glucometer 134 TSH 1.38 C. trachomatis ([place]NIS) Negative N. gonorrhoeae ([place]NIS) Negative 01/10/18 01/10/18 06:04 12:11 POC Glucometer 135 115 TSH C. trachomatis (DENNIS) N. gonorrhoeae (DENNIS) Active Medications Generic Name Dose Route Start Last Admin Trade Name Freq PRN Reason Stop Dose Admin Amlodipine Besylate 5 mg 01/06/18 10:00 01/10/18 10:30 Norvasc - PO 5 mg DAILY [facility] Administration Carvedilol 12.5 mg 01/06/18 10:00 01/10/18 10:29 Coreg - PO Not Given BID [facility] Docusate Sodium 100 mg 01/07/18 15:00 01/10/18 06:01 Colace - PO Not Given TID [facility] Heparin Sodium (Porcine) 5,000 unit 01/06/18 10:00 01/10/18 10:28 Heparin - SQ Not Given BID [facility] Piperacillin Sod/Tazobactam 50 mls @ 100 mls/hr 01/08/18 12:15 01/10/18 10:28 Sod 3.375 gm/ Dextrose IVPB 100 mls/hr Q8H-IV [facility] Administration Protocol Insulin Aspart 1 vial 01/06/18 07:00 01/10/18 06:04 Novolog Vial Sliding Scale - SQ Not Given ACHS [facility] Protocol Metformin HCl 500 mg 01/06/18 07:00 01/10/18 06:07 Glucophage - PO 500 mg BIDAC [facility] Administration Ranitidine HCl 150 mg 01/06/18 10:00 01/10/18 10:30 Zantac - PO 150 mg BID [facility] Administration ASSESSMENT/PLAN: 1) Abdominal discomfort -Likely 2/2 the underlying funder malignancy -No new complaints; continue current management 2) COMMUNICATIONS COORDINATOR Neoplasm -Reviewed prelim MRI report; final report pending. 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 CEA slightly elevated. Posterior findings in the bladder likely represents mass vs. inflammation and radiology recommedned urology consult; Dr. Harp to see patient with consultation placed. -Spoke to COMMUNICATIONS COORDINATOR; recommended referral to Dr. Escamilla in [place] ([phone]). Awaiting call back. Appreciate COMMUNICATIONS COORDINATOR input. 3) Acute UTI/ID process -Dr. Lutz managing; changing to PO per his note. Afebrile, HDS, not septic; continue tx per ID. 4) Borderline bradycardia -Seen by CV; no further workup. Avoid AV anuja blocking agents if BP control. Appreciate CV input. Holter results reviewed 5) HTN -Stable; documented hx 6) DM hx -Controlled; DC metformin especially if she needs contrast for study 7) Potential Bladder Mass -Consult with Dr. Harp pending DVT px: Increasing heparin from BID to TID (she has increased risk of DVT given likely malignancy) Full Code Visit type - Emergency Visit Emergency Visit: No - New Patient This patient is new to me today: No - Critical Care Critical Care patient: No
--- NOTE | 2018-01-10 12:46 | PN ---
Progress Note, Physician History of Present Illness: patient stable no new issues awaiting for gynac final plan - Current Medication List Current Medications: Active Medications Amlodipine Besylate (Norvasc -) 5 mg PO DAILY [facility] Last Admin: 01/10/18 10:30 Dose: 5 mg Carvedilol (Coreg -) 12.5 mg PO BID [facility] Last Admin: 01/10/18 10:29 Dose: Not Given Docusate Sodium (Colace -) 100 mg PO TID [facility] Last Admin: 01/10/18 06:01 Dose: Not Given Heparin Sodium (Porcine) (Heparin -) 5,000 unit SQ BID [facility] Last Admin: 01/10/18 10:28 Dose: Not Given Insulin Aspart (Novolog Vial Sliding Scale -) 1 vial SQ [facility]; Protocol Last Admin: 01/10/18 06:04 Dose: Not Given Metformin HCl (Glucophage -) 500 mg PO BIDAC [facility] Last Admin: 01/10/18 06:07 Dose: 500 mg Ranitidine HCl (Zantac -) 150 mg PO BID [facility] Last Admin: 01/10/18 10:30 Dose: 150 mg - Objective Vital Signs: Vital Signs Temperature 98.0 F 01/10/18 06:00 Pulse Rate 48 L 01/10/18 06:00 Respiratory Rate 20 01/10/18 06:00 Blood Pressure 133/64 01/10/18 06:00 O2 Sat by Pulse Oximetry (%) 100 01/09/18 21:00 Constitutional: Yes: No Distress Cardiovascular: Yes: Regular Rate and Rhythm Respiratory: Yes: Regular, CTA Bilaterally Gastrointestinal: Yes: Normal Bowel Sounds, Soft Musculoskeletal: Yes: WNL Extremities: Yes: WNL Neurological: Yes: Alert, Oriented Psychiatric: Yes: Alert, Oriented Labs: CBC, BMP 01/08/18 06:45 01/08/18 06:45 Assessment/Plan patient with findings now on abx feeling better Problem List - Problems (1) Abdominal pain Code(s): R10.9 - UNSPECIFIED ABDOMINAL PAIN (2) Bradycardia Code(s): R00.1 - BRADYCARDIA, UNSPECIFIED (3) Diabetes Code(s): E11.9 - TYPE 2 DIABETES MELLITUS WITHOUT COMPLICATIONS Qualifiers: Diabetes mellitus type: type 2 Chronic kidney disease stage: unspecified stage (4) Hypertension Code(s): I10 - ESSENTIAL (PRIMARY) HYPERTENSION Qualifiers: Hypertension type: unspecified Qualified Code(s): I10 - Essential (primary ) hypertension 5 uti plan will switch to oral augmentin to take augmentin for 3 more days rest continue current mgmt patient doing well
--- NOTE | 2018-01-10 15:02 | CON.GU ---
Consult Consult Specialty:: Referred by:: Bill Reason for Consultation:: UTI, bladder wall thickening - History of Present Illness History of Present Illness: 57 y/o female w/ PMH significant for HTN, DM, lung Ca s/p resection, chemo and radiation (2015), and diverticulosis who presents to the ER because of large painless discharge from her vagina today after a popping sensation felt in her pelvis. She believes that her known ovarian cysts (11 cm and 7 cms in largest dimensions bilaterally) "popped" and they started to drain. Describes two hand full of copious, green, thick, malodorous material coming from her vagina. Denies bleeding , pain, nausea, vomiting, diarrhea, or other symptoms. She was supposed to follow up with the stud setter to have them removed next week. She was found to have TOA/ ruptured ovarian cysts, ecoli uti rx w abxs and posterior bladder wall thickening on prelim MRI reading and cons req. - History Source History Provided By: Patient, Medical Record - Past Medical History Cardio/Vascular: Yes: CAD (reported prior PR 2006 treated medically), HTN Pulmonary: Yes: Other (h/o Left Upper lobe Lung cancer , s/p resection ( 2014) , chemotherapy & radiation as per resident notes ) Gastrointestinal: Yes: Diverticulitis Renal/: Yes: UTI ...: No Endocrine: Yes: Diabetes Mellitus - Past Surgical History Past Surgical History: Yes: Hysterectomy - Alcohol/Substance Use Hx Alcohol Use: No History of Substance Use: reports: Marijuana - Smoking History Smoking history: Former smoker Have you smoked in the past 12 months: No Aproximately how many cigarettes per day: 1 If you are a former smoker, when did you quit?: 2014 - Social History Usual Living Arrangement: With Spouse ADL: Independent History of Recent Travel: No Home Medications - Allergies Allergies/Adverse Reactions: Allergies Allergy/AdvReac Type Severity Reaction Status Date / Time No Known Allergies Allergy Verified 01/05/18 15:04 - Home Medications Home Medications: Ambulatory Orders metFORMIN HCL [Metformin HCl] 500 mg PO BID 05/02/16 Amlodipine Besylate [Norvasc -] 5 mg PO DAILY #30 tablet 12/27/17 Carvedilol [Coreg -] 12.5 mg PO BID #60 tablet 12/27/17 Ranitidine [Zantac -] 150 mg PO BID #60 tablet 12/27/17 Family Disease History - Family Disease History Family Disease History: Diabetes: Father, Mother Review of Systems - Review of Systems Genitourinary: reports: Dysuria Physical Exam- Vital Signs: Vital Signs Temperature 98.0 F 01/10/18 06:00 Pulse Rate 48 L 01/10/18 06:00 Respiratory Rate 20 01/10/18 06:00 Blood Pressure 133/64 01/10/18 06:00 O2 Sat by Pulse Oximetry (%) 100 01/09/18 21:00 Gastrointestinal: Yes: WNL, Normal Bowel Sounds, Soft Renal/: Yes: WNL Kidneys: Yes: WNL Labs: CBC, BMP 01/08/18 06:45 01/08/18 06:45 Imaging - Results Cat Scan: Report Reviewed Problem List - Problems (1) UTI (urinary tract infection) Assessment/Plan: cont abxs Code(s): N39.0 - URINARY TRACT INFECTION, SITE NOT SPECIFIED (2) Bladder wall thickening Assessment/Plan: f/u in my office after disch for cystoscopy after uti resolved Code(s): N32.89 - OTHER SPECIFIED DISORDERS OF BLADDER (3) Bilateral ovarian cysts Code(s): N83.201 - UNSPECIFIED OVARIAN CYST, RIGHT SIDE; N83.202 - UNSPECIFIED OVARIAN CYST, LEFT SIDE
--- NOTE | 2018-01-10 16:43 | PN ---
Progress Note (short form) - Note Progress Note: Patient with personal h/o lung cancer, prior hysterectomy/unilateral oophorectomy and adnexa mass, re-evaluated. Ca125 is negative but CEA is elevated. Ovarian neoplasm is unlikely. Recommend GI consult to R/O GI pathology.
[2018-01-10] MEDS: AMOX TR/POT CLAV 875MG/125MG TABLETS (FP) PO SCH (17:47)
[2018-01-11] MEDS: DOCUSATE SODIUM 100 MG CAPSULE (FP) PO SCH ×3 (06:05→21:24)
[2018-01-11] MEDS: INSULIN SLIDING SCALE (NOVOLOG) 1 VIAL SQ SCH ×4 (06:06→21:23)
[2018-01-11] MEDS: HEPARIN NA (PORCINE) 5,000 UNITS/ML 1ML VIAL SQ SCH ×3 (06:06→21:24)
[2018-01-11 08:13] LABS: BASO % 0.5 % (0-2.0); EOS % 2.4 % (0-4.5); HEMATOCRIT 33.6 % (32.4-45.2); HEMOGLOBIN 11.8 GM/dL (10.7-15.3); LYMPH % 24.6 % (8-40); MCH 30.8 pg (25.7-33.7); MCHC 35.1 g/dl (32.0-36.0); MEAN CELL VOLUME 87.8 fl (80-96); MEAN PLT VOLUME 9.3 fl (7.5-11.1); MONO % 5.5 % (3.8-10.2); PLATELET COUNT 284 K/MM3 (134-434); RBC 3.83 M/mm3 (3.60-5.2); RDW 15.1 % (11.6-15.6); WHITE BLOOD COUNT 7.4 K/mm3 (4.0-10.0)
[2018-01-11 08:17] LABS: ANION GAP 9 MMOL/L (8-16); BLOOD UREA NITROGEN 16 mg/dL (7-18); CALCIUM 9.7 mg/dL (8.5-10.1); CHLORIDE 104 mmol/L (98-107); CO2 25 mmol/L (21-32); CREATININE 0.8 mg/dL (0.55-1.3); GLUCOSE,RANDOM 102 mg/dL (74-106); MAGNESIUM 1.8 mg/dL (1.8-2.4); SODIUM 138 mmol/L (136-145)
[2018-01-11] MEDS: AMOX TR/POT CLAV 875MG/125MG TABLETS (FP) PO SCH ×2 (08:59→17:10)
[2018-01-11] MEDS: amLODIPine BESYLATE 5 MG TABLET (FP) PO SCH (10:40)
[2018-01-11] MEDS: CARVEDILOL 12.5 MG TABLET (FP) PO SCH ×2 (10:40→21:24)
[2018-01-11] MEDS: RANITIDINE HCL 150 MG TABLET (FP) PO SCH ×2 (10:40→21:22)
--- NOTE | 2018-01-11 11:20 | PN ---
Progress Note, Physician - Current Medication List Current Medications: Active Medications Amlodipine Besylate (Norvasc -) 5 mg PO DAILY [facility] Last Admin: 01/11/18 10:40 Dose: 5 mg Amoxicillin/Clavulanate Potassium (Augmentin - 875mg Tablet) 1 tab PO BID@0800, 1730 [facility] Last Admin: 01/11/18 08:59 Dose: 1 tab Carvedilol (Coreg -) 12.5 mg PO BID [facility] Last Admin: 01/11/18 10:40 Dose: Not Given Docusate Sodium (Colace -) 100 mg PO TID [facility] Last Admin: 01/11/18 06:05 Dose: 100 mg Heparin Sodium (Porcine) (Heparin -) 5,000 unit SQ TID [facility] Last Admin: 01/11/18 06:06 Dose: Not Given Insulin Aspart (Novolog Vial Sliding Scale -) 1 vial SQ [facility]; Protocol Last Admin: 01/11/18 06:06 Dose: Not Given Ranitidine HCl (Zantac -) 150 mg PO BID [facility] Last Admin: 01/11/18 10:40 Dose: 150 mg - Objective Vital Signs: Vital Signs Temperature 98 F 01/11/18 10:33 Pulse Rate 57 L 01/11/18 10:33 Respiratory Rate 20 01/11/18 10:33 Blood Pressure 159/86 01/11/18 10:33 O2 Sat by Pulse Oximetry (%) 100 01/10/18 21:00 Labs: CBC, BMP 01/11/18 06:30 01/11/18 06:30
--- NOTE | 2018-01-11 23:56 | PN ---
Progress Note, Physician - Current Medication List Current Medications: Active Medications Amlodipine Besylate (Norvasc -) 5 mg PO DAILY [facility] Last Admin: 01/11/18 10:40 Dose: 5 mg Amoxicillin/Clavulanate Potassium (Augmentin - 875mg Tablet) 1 tab PO BID@0800, 1730 [facility] Last Admin: 01/11/18 17:10 Dose: 1 tab Carvedilol (Coreg -) 12.5 mg PO BID [facility] Last Admin: 01/11/18 21:24 Dose: Not Given Docusate Sodium (Colace -) 100 mg PO TID [facility] Last Admin: 01/11/18 21:24 Dose: Not Given Heparin Sodium (Porcine) (Heparin -) 5,000 unit SQ TID [facility] Last Admin: 01/11/18 21:24 Dose: Not Given Insulin Aspart (Novolog Vial Sliding Scale -) 1 vial SQ [facility]; Protocol Last Admin: 01/11/18 21:23 Dose: Not Given Ranitidine HCl (Zantac -) 150 mg PO BID [facility] Last Admin: 01/11/18 21:22 Dose: 150 mg - Objective Vital Signs: Vital Signs Temperature 98.2 F 01/11/18 18:57 Pulse Rate 57 L 01/11/18 18:57 Respiratory Rate 18 01/11/18 18:57 Blood Pressure 162/80 01/11/18 18:57 O2 Sat by Pulse Oximetry (%) 98 01/11/18 11:00 Labs: CBC, BMP 01/11/18 06:30 01/11/18 06:30 Problem List - Problems (1) Abdominal pain Code(s): R10.9 - UNSPECIFIED ABDOMINAL PAIN (2) Bradycardia Code(s): R00.1 - BRADYCARDIA, UNSPECIFIED (3) Diabetes Code(s): E11.9 - TYPE 2 DIABETES MELLITUS WITHOUT COMPLICATIONS Qualifiers: Diabetes mellitus type: type 2 Chronic kidney disease stage: unspecified stage (4) Hypertension Code(s): I10 - ESSENTIAL (PRIMARY) HYPERTENSION Qualifiers: Hypertension type: unspecified Qualified Code(s): I10 - Essential (primary ) hypertension
[2018-01-12] MEDS: HEPARIN NA (PORCINE) 5,000 UNITS/ML 1ML VIAL SQ SCH ×3 (06:11→22:21)
[2018-01-12] MEDS: INSULIN SLIDING SCALE (NOVOLOG) 1 VIAL SQ SCH ×4 (06:16→22:00)
[2018-01-12] MEDS: DOCUSATE SODIUM 100 MG CAPSULE (FP) PO SCH ×3 (06:16→22:20)
[2018-01-12] MEDS: AMOX TR/POT CLAV 875MG/125MG TABLETS (FP) PO SCH ×2 (08:24→17:39)
--- NOTE | 2018-01-12 10:14 | CON.GI ---
Consult Consult Specialty:: GI Reason for Consultation:: abdominal pain - History of Present Illness History of Present Illness: 57 y/o female w/ PMH significant for HTN, DM, lung Ca s/p resection, chemo and radiation (2015), and diverticulosis who presents to the ER because of large painless discharge from her vagina today after a popping sensation felt in her pelvis. She believes that her known ovarian cysts (11 cm and 7 cms in largest dimensions bilaterally) "popped" and they started to drain. Iwsarah asked to see patient because of abdominal pain - Past Medical History Cardio/Vascular: Yes: CAD (reported prior CA 2006 treated medically), HTN Pulmonary: Yes: Other (h/o Left Upper lobe Lung cancer , s/p resection ( 2014) , chemotherapy & radiation as per resident notes ) Gastrointestinal: Yes: Diverticulitis Renal/: Yes: UTI ...: No Endocrine: Yes: Diabetes Mellitus - Past Surgical History Past Surgical History: Yes: Hysterectomy - Alcohol/Substance Use Hx Alcohol Use: No History of Substance Use: reports: Marijuana - Smoking History Smoking history: Former smoker Have you smoked in the past 12 months: No Aproximately how many cigarettes per day: 1 If you are a former smoker, when did you quit?: 2014 - Social History Usual Living Arrangement: With Spouse ADL: Independent History of Recent Travel: No Home Medications - Allergies Allergies/Adverse Reactions: Allergies Allergy/AdvReac Type Severity Reaction Status Date / Time No Known Allergies Allergy Verified 01/05/18 15:04 - Home Medications Home Medications: Ambulatory Orders metFORMIN HCL [Metformin HCl] 500 mg PO BID 05/02/16 Amlodipine Besylate [Norvasc -] 5 mg PO DAILY #30 tablet 12/27/17 Carvedilol [Coreg -] 12.5 mg PO BID #60 tablet 12/27/17 Ranitidine [Zantac -] 150 mg PO BID #60 tablet 12/27/17 Family Disease History - Family Disease History Family Disease History: Diabetes: Father, Mother Physical Exam-GI Vital Signs: Vital Signs Temperature 98 F 01/12/18 10:12 Pulse Rate 75 01/12/18 10:12 Respiratory Rate 20 01/12/18 10:12 Blood Pressure 104/59 L 01/12/18 10:12 O2 Sat by Pulse Oximetry (%) 98 01/11/18 21:00 Labs: CBC, BMP 01/11/18 06:30 01/11/18 06:30
[2018-01-12] MEDS: amLODIPine BESYLATE 5 MG TABLET (FP) PO SCH (10:32)
[2018-01-12] MEDS: RANITIDINE HCL 150 MG TABLET (FP) PO SCH ×2 (10:32→22:21)
[2018-01-12] MEDS: CARVEDILOL 12.5 MG TABLET (FP) PO SCH ×2 (10:32→22:22)
--- NOTE | 2018-01-12 14:18 | PN ---
Progress Note, Physician - Current Medication List Current Medications: Active Medications Amlodipine Besylate (Norvasc -) 5 mg PO DAILY [facility] Last Admin: 01/12/18 10:32 Dose: 5 mg Amoxicillin/Clavulanate Potassium (Augmentin - 875mg Tablet) 1 tab PO BID@0800, 1730 [facility] Last Admin: 01/12/18 08:24 Dose: 1 tab Carvedilol (Coreg -) 12.5 mg PO BID [facility] Last Admin: 01/12/18 10:32 Dose: Not Given Docusate Sodium (Colace -) 100 mg PO TID [facility] Last Admin: 01/12/18 06:16 Dose: 100 mg Heparin Sodium (Porcine) (Heparin -) 5,000 unit SQ TID [facility] Last Admin: 01/12/18 06:11 Dose: Not Given Insulin Aspart (Novolog Vial Sliding Scale -) 1 vial SQ [facility]; Protocol Last Admin: 01/12/18 12:15 Dose: Not Given Ranitidine HCl (Zantac -) 150 mg PO BID [facility] Last Admin: 01/12/18 10:32 Dose: 150 mg - Objective Vital Signs: Vital Signs Temperature 98.2 F 01/12/18 10:24 Pulse Rate 50 L 01/12/18 10:24 Respiratory Rate 20 01/12/18 10:24 Blood Pressure 137/68 01/12/18 10:24 O2 Sat by Pulse Oximetry (%) 98 01/11/18 21:00 Labs: CBC, BMP 01/11/18 06:30 01/11/18 06:30
--- NOTE | 2018-01-12 15:42 | PN ---
Progress Note, Physician - Current Medication List Current Medications: Active Medications Amlodipine Besylate (Norvasc -) 5 mg PO DAILY [facility] Last Admin: 01/12/18 10:32 Dose: 5 mg Amoxicillin/Clavulanate Potassium (Augmentin - 875mg Tablet) 1 tab PO BID@0800, 1730 [facility] Last Admin: 01/12/18 08:24 Dose: 1 tab Carvedilol (Coreg -) 12.5 mg PO BID [facility] Last Admin: 01/12/18 10:32 Dose: Not Given Docusate Sodium (Colace -) 100 mg PO TID [facility] Last Admin: 01/12/18 14:45 Dose: 100 mg Heparin Sodium (Porcine) (Heparin -) 5,000 unit SQ TID [facility] Last Admin: 01/12/18 14:45 Dose: Not Given Insulin Aspart (Novolog Vial Sliding Scale -) 1 vial SQ [facility]; Protocol Last Admin: 01/12/18 12:15 Dose: Not Given Ranitidine HCl (Zantac -) 150 mg PO BID [facility] Last Admin: 01/12/18 10:32 Dose: 150 mg - Objective Vital Signs: Vital Signs Temperature 98.4 F 01/12/18 14:29 Pulse Rate 51 L 01/12/18 14:29 Respiratory Rate 20 01/12/18 14:29 Blood Pressure 140/78 01/12/18 14:29 O2 Sat by Pulse Oximetry (%) 98 01/12/18 10:00 Labs: CBC, BMP 01/11/18 06:30 01/11/18 06:30 Problem List - Problems (1) Abdominal pain Code(s): R10.9 - UNSPECIFIED ABDOMINAL PAIN (2) Bradycardia Code(s): R00.1 - BRADYCARDIA, UNSPECIFIED (3) Diabetes Code(s): E11.9 - TYPE 2 DIABETES MELLITUS WITHOUT COMPLICATIONS Qualifiers: Diabetes mellitus type: type 2 Chronic kidney disease stage: unspecified stage (4) Hypertension Code(s): I10 - ESSENTIAL (PRIMARY) HYPERTENSION Qualifiers: Hypertension type: unspecified Qualified Code(s): I10 - Essential (primary ) hypertension
[2018-01-13] MEDS: DOCUSATE SODIUM 100 MG CAPSULE (FP) PO SCH ×3 (05:47→21:58)
[2018-01-13] MEDS: HEPARIN NA (PORCINE) 5,000 UNITS/ML 1ML VIAL SQ SCH ×3 (05:49→21:58)
[2018-01-13] MEDS: INSULIN SLIDING SCALE (NOVOLOG) 1 VIAL SQ SCH ×4 (06:26→21:58)
[2018-01-13] MEDS: AMOX TR/POT CLAV 875MG/125MG TABLETS (FP) PO SCH ×2 (08:39→17:45)
[2018-01-13] MEDS: RANITIDINE HCL 150 MG TABLET (FP) PO SCH ×2 (10:26→21:58)
[2018-01-13] MEDS: CARVEDILOL 12.5 MG TABLET (FP) PO SCH ×3 (10:26→22:07)
[2018-01-13] MEDS: amLODIPine BESYLATE 5 MG TABLET (FP) PO SCH (10:26)
[2018-01-13] MEDS ORDERED: INSULIN (NOVOLOG) ASPART 100 UNITS/ML 10ML VIAL ONE (11:45)
--- NOTE | 2018-01-13 15:21 | PN ---
Progress Note, Physician History of Present Illness: Pt is alert, afebrile. Reports some vaginal still but no current pain. Dysuria resolved. - Current Medication List Current Medications: Active Medications Amlodipine Besylate (Norvasc -) 5 mg PO DAILY REPLACED BY [facility] Last Admin: 01/13/18 10:26 Dose: 5 mg Amoxicillin/Clavulanate Potassium (Augmentin - 875mg Tablet) 1 tab PO BID@0800, 1730 REPLACED BY [facility] Last Admin: 01/13/18 08:39 Dose: 1 tab Carvedilol (Coreg -) 12.5 mg PO BID REPLACED BY [facility] Last Admin: 01/13/18 10:28 Dose: Not Given Docusate Sodium (Colace -) 100 mg PO TID REPLACED BY [facility] Last Admin: 01/13/18 15:00 Dose: Not Given Heparin Sodium (Porcine) (Heparin -) 5,000 unit SQ TID REPLACED BY [facility] Last Admin: 01/13/18 14:17 Dose: Not Given Insulin Aspart (Novolog Vial Sliding Scale -) 1 vial SQ [facility] REPLACED BY [facility]; Protocol Last Admin: 01/13/18 11:30 Dose: Not Given Ranitidine HCl (Zantac -) 150 mg PO BID REPLACED BY [facility] Last Admin: 01/13/18 10:26 Dose: 150 mg - Objective Vital Signs: Vital Signs Temperature 98.2 F 01/13/18 06:00 Pulse Rate 64 01/13/18 10:00 Respiratory Rate 18 01/13/18 10:00 Blood Pressure 156/70 01/13/18 10:00 O2 Sat by Pulse Oximetry (%) 99 01/13/18 09:00 Constitutional: Yes: No Distress, Calm Cardiovascular: Yes: Regular Rate and Rhythm Respiratory: Yes: Regular Gastrointestinal: Yes: Normal Bowel Sounds, Soft Genitourinary: Yes: WNL Extremities: Yes: WNL Neurological: Yes: Alert Labs: CBC, BMP 01/11/18 06:30 01/11/18 06:30 Problem List - Problems (1) Bilateral ovarian cysts Code(s): N83.201 - UNSPECIFIED OVARIAN CYST, RIGHT SIDE; N83.202 - UNSPECIFIED OVARIAN CYST, LEFT SIDE (2) UTI (urinary tract infection) Code(s): N39.0 - URINARY TRACT INFECTION, SITE NOT SPECIFIED (3) Leukocytosis Code(s): D72.829 - ELEVATED WHITE BLOOD CELL COUNT, UNSPECIFIED Qualifiers: Leukocytosis type: unspecified Qualified Code(s): D72.829 - Elevated white blood cell count, unspecified (4) Diabetes Code(s): E11.9 - TYPE 2 DIABETES MELLITUS WITHOUT COMPLICATIONS Qualifiers: Diabetes mellitus type: type 2 Chronic kidney disease stage: unspecified stage (5) History of lung cancer Code(s): Z85.118 - PERSONAL HISTORY OF MALIGNANT NEOPLASM OF BRONCHUS AND LUNG Assessment/Plan 57 y.o. female with PMH of DM, Hx of Lung CA s/p resection, diverticulosis, HTN , COPD admitted with ruptured ovarian cyst, dysuria, and leukocytosis UTI Ruptured ovarian cyst DM Hx of Lung CA COPD -cont. antibiotics -leukocytosis resolved - CEA elevated, GI to follow - [employer] EX[employer] COORDINATOR follow up
--- NOTE | 2018-01-13 21:28 | PN ---
Progress Note, Physician - Current Medication List Current Medications: Active Medications Amlodipine Besylate (Norvasc -) 5 mg PO DAILY [facility] Last Admin: 01/13/18 10:26 Dose: 5 mg Amoxicillin/Clavulanate Potassium (Augmentin - 875mg Tablet) 1 tab PO BID@0800, 1730 [facility] Last Admin: 01/13/18 17:45 Dose: 1 tab Carvedilol (Coreg -) 12.5 mg PO BID [facility] Last Admin: 01/13/18 10:28 Dose: Not Given Docusate Sodium (Colace -) 100 mg PO TID [facility] Last Admin: 01/13/18 15:00 Dose: Not Given Heparin Sodium (Porcine) (Heparin -) 5,000 unit SQ TID [facility] Last Admin: 01/13/18 14:17 Dose: Not Given Insulin Aspart (Novolog Vial Sliding Scale -) 1 vial SQ [facility]; Protocol Last Admin: 01/13/18 17:04 Dose: Not Given Ranitidine HCl (Zantac -) 150 mg PO BID [facility] Last Admin: 01/13/18 10:26 Dose: 150 mg - Objective Vital Signs: Vital Signs Temperature 97.9 F 01/13/18 18:30 Pulse Rate 55 L 01/13/18 18:30 Respiratory Rate 18 01/13/18 18:30 Blood Pressure 130/71 01/13/18 18:30 O2 Sat by Pulse Oximetry (%) 99 01/13/18 09:00 Labs: CBC, BMP 01/11/18 06:30 01/11/18 06:30 Problem List - Problems (1) Abdominal pain Code(s): R10.9 - UNSPECIFIED ABDOMINAL PAIN (2) Bradycardia Code(s): R00.1 - BRADYCARDIA, UNSPECIFIED (3) Diabetes Code(s): E11.9 - TYPE 2 DIABETES MELLITUS WITHOUT COMPLICATIONS Qualifiers: Diabetes mellitus type: type 2 Chronic kidney disease stage: unspecified stage (4) Hypertension Code(s): I10 - ESSENTIAL (PRIMARY) HYPERTENSION Qualifiers: Hypertension type: unspecified Qualified Code(s): I10 - Essential (primary ) hypertension
[2018-01-14] MEDS: DOCUSATE SODIUM 100 MG CAPSULE (FP) PO SCH (06:27)
[2018-01-14] MEDS: HEPARIN NA (PORCINE) 5,000 UNITS/ML 1ML VIAL SQ SCH (06:27)
[2018-01-14] MEDS: INSULIN SLIDING SCALE (NOVOLOG) 1 VIAL SQ SCH ×2 (06:28→12:38)
[2018-01-14] MEDS: amLODIPine BESYLATE 5 MG TABLET (FP) PO SCH (09:31)
[2018-01-14] MEDS: AMOX TR/POT CLAV 875MG/125MG TABLETS (FP) PO SCH (09:32)
[2018-01-14] MEDS: RANITIDINE HCL 150 MG TABLET (FP) PO SCH (09:32)
[2018-01-14] MEDS: CARVEDILOL 12.5 MG TABLET (FP) PO SCH (09:32)
[2018-01-14 09:33] VITALS: PULSE 59
--- NOTE | 2018-01-14 13:39 | PN ---
Progress Note, Physician History of Present Illness: Pt is doing well. Has no specific complaint, states she feels better. Denies dysuria/fever/chills. For d/c home today. - Current Medication List Current Medications: Active Medications Amlodipine Besylate (Norvasc -) 5 mg PO DAILY [facility] Last Admin: 01/14/18 09:31 Dose: 5 mg Amoxicillin/Clavulanate Potassium (Augmentin - 875mg Tablet) 1 tab PO BID@0800, 1730 [facility] Last Admin: 01/14/18 09:32 Dose: 1 tab Carvedilol (Coreg -) 12.5 mg PO BID [facility] Last Admin: 01/14/18 09:32 Dose: Not Given Docusate Sodium (Colace -) 100 mg PO TID [facility] Last Admin: 01/14/18 06:27 Dose: Not Given Heparin Sodium (Porcine) (Heparin -) 5,000 unit SQ TID [facility] Last Admin: 01/14/18 06:27 Dose: Not Given Insulin Aspart (Novolog Vial Sliding Scale -) 1 vial SQ [facility]; Protocol Last Admin: 01/14/18 12:38 Dose: Not Given Ranitidine HCl (Zantac -) 150 mg PO BID [facility] Last Admin: 01/14/18 09:32 Dose: 150 mg - Objective Vital Signs: Vital Signs Temperature 98 F 01/14/18 09:32 Pulse Rate 59 L 01/14/18 09:32 Respiratory Rate 18 01/14/18 09:32 Blood Pressure 144/72 01/14/18 09:32 O2 Sat by Pulse Oximetry (%) 99 01/14/18 09:00 Constitutional: Yes: No Distress, Calm Cardiovascular: Yes: Regular Rate and Rhythm Respiratory: Yes: Regular, CTA Bilaterally Gastrointestinal: Yes: Normal Bowel Sounds, Soft Edema: No Integumentary: Yes: WNL Neurological: Yes: Alert, Oriented Labs: CBC, BMP 01/11/18 06:30 01/11/18 06:30 Problem List - Problems (1) Bilateral ovarian cysts Code(s): N83.201 - UNSPECIFIED OVARIAN CYST, RIGHT SIDE; N83.202 - UNSPECIFIED OVARIAN CYST, LEFT SIDE (2) UTI (urinary tract infection) Code(s): N39.0 - URINARY TRACT INFECTION, SITE NOT SPECIFIED (3) Leukocytosis Code(s): D72.829 - ELEVATED WHITE BLOOD CELL COUNT, UNSPECIFIED Qualifiers: Leukocytosis type: unspecified Qualified Code(s): D72.829 - Elevated white blood cell count, unspecified (4) Diabetes Code(s): E11.9 - TYPE 2 DIABETES MELLITUS WITHOUT COMPLICATIONS Qualifiers: Diabetes mellitus type: type 2 Chronic kidney disease stage: unspecified stage (5) History of lung cancer Code(s): Z85.118 - PERSONAL HISTORY OF MALIGNANT NEOPLASM OF BRONCHUS AND LUNG Assessment/Plan 57 y.o. 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
[2018-01-14 14:35] VITALS: BP 148/60; TEMP 97.5
== END 2018-01-14 14:46 | disposition home or self-care (01) | DRG 760 ==
LOC: JER 15:02 → JERBED 23:22 → UNDOADMIN 23:45 → JERBED 23:45 → J5S 01-06 15:32
PROVIDERS: ADMIT Internal Medicine; ATTEND Internal Medicine
DX: N83.8 Other noninflammatory disorders of ovary, fallopian tube and broad ligament (principal); N39.0 Urinary tract infection, site not specified; C34.92 Malignant neoplasm of unspecified part of left bronchus or lung; N83.201 Unspecified ovarian cyst, right side; N94.89 Other specified conditions associated with female genital organs and menstrual cycle; I10 Essential (primary) hypertension; K57.90 Diverticulosis of intestine, part unspecified, without perforation or abscess without bleeding; R00.1 Bradycardia, unspecified; D72.829 Elevated white blood cell count, unspecified; N83.209 Unspecified ovarian cyst, unspecified side; N83.202 Unspecified ovarian cyst, left side; E11.9 Type 2 diabetes mellitus without complications; J44.9 Chronic obstructive pulmonary disease, unspecified; R10.9 Unspecified abdominal pain; E78.5 Hyperlipidemia, unspecified; I25.10 Atherosclerotic heart disease of native coronary artery without angina pectoris
CPT/HCPCS: 36415; 72196-TC; 74177-TC; 76830-TC; 80048; 80053; 81003; 81015; 82378; 82962; 83605; 83735; 84443; 85025; 86140; 86304; 87040; 87070; 87086; 87186; 87205; 87491; 87591; 93005; 93010; 93225; 93226; 99283-25; J1644; J7030

== ENCOUNTER 2019-11-06 04:33 | Day surgery (SDC) | payer OTHER ==
[2019-11-05 10:05] VITALS: BMI 20.5
--- OUTSIDE RECORDS SUMMARY | 2019-11-06 04:44 | XMS ---
:1960 Author Organization [facility] Support Name Relationship Address Phone UE, UNEMPLOYED Unavailable Unavailable Unavailable UE Unavailable Unavailable Unavailable ASHOK BREWER [address] [phone] [place] [id number] Re-disclosure Warning The records that you are about to access may contain information from federally- assisted alcohol or drug abuse programs. If such information is present, then the following federally mandated warning applies: This information has been disclosed to you from records protected by federal confidentiality rules (42 CFR part 2). The federal rules prohibit you from making any further disclosure of this information unless further disclosure is expressly permitted by the written consent of the person to whom it pertains or as otherwise permitted by 42 CFR part 2. A general authorization for the release of medical or other information is NOT sufficient for this purpose. The Federal rules restrict any use of the information to criminally investigate or prosecute any alcohol or drug abuse patient.The records that you are about to access may contain highly sensitive health information, the redisclosure of which is protected by Article 27-F of the [facility] Public Health law. If you continue you may haveaccess to information: Regarding HIV / AIDS; Provided by facilities licensed or operated by the [facility] Office of Mental Health; or Provided by the [facility] Office for People With Developmental Disabilities. If such information is present, then the following [facility] mandated warning applies: This information has been disclosed to you from confidential records which are protected by state law. State law prohibits you from making any further disclosure of this information without the specific written consent of the person to whom it pertains, or as otherwise permitted by law. Any unauthorized further disclosure in violation of state law may result in a fine or prison sentence or both. A general authorization for the release of medical or other information is NOT sufficient authorization for further disclosure. Insurance Providers Payer name Policy type Policy ID Covered Covered green party's Policy P paty / Coverage green party ID relationship to [employer] type [employer] [id number] SP [id number] MEDICARE MARCOS MEDICARE [id number] SP [id number] AFFINITY [id number] SP [id number] MEDICARE REBECCA [id number] SP [id number] 600 MEDICARE ADV PLAN Results ID Date Data Source [id number] 11/01/2019 09:50:00 AM EDT [facility] Name Value Range Interpretation Description Data Sup porting Code Source(s) Document(s ) SARS [facility] coronavirus 2 RNA This lab was ordered by [facility] and reported by [facility]. Procedure
--- NOTE | 2019-11-06 09:50 | HP ---
Satellite [facility] - Chief Complaint Chief Complaint: right ankle pain - Past Medical History Allergies/Adverse Reactions: Allergies Allergy/AdvReac Type Severity Reaction Status Date / Time No Known Allergies Allergy Verified 01/05/18 15:04 Cardiovascular: Yes: CAD (reported prior LA 2006 treated medically), HTN Pulmonary: Yes: Other (h/o Left Upper lobe Lung cancer , s/p resection ( 2014) , chemotherapy & radiation as per resident notes ) Gastrointestinal: Yes: Diverticulitis Renal/: Yes: UTI Heme/Onc: Yes: Other (h/o chemotherapy ) Endocrine: Yes: Diabetes Mellitus - Current Medications Current Medications: Home Medications Medication Instructions Recorded Amlodipine Besylate [Norvasc -] 5 mg PO DAILY #30 tablet 12/27/17 Multivitamin [One-Daily 1 each PO DAILY 11/05/19 Multi-Vitamin] Satellite Physical Exam - Physical Examination General Appearance: Well Nourished, Well Developed, Alert & Oriented x3 ENT: Clear Lung: Normal air movement Extremities: Other (right ankle- + ulceration with crew head visible, no drainage, no erythema, no swelling, mild ttp, nvi) Neurological: Intact, Alert, Oriented Satellite Impression/Plan - Impression/Plan Impression: right ankle failed hardware Operative Procedure: right ankle removal of hardware Date to be Performed: 11/06/19
[2019-11-06] MEDS ORDERED: ONDANSETRON 4 MG/2 ML VIAL IVPUSH PRN (12:37)
[2019-11-06] MEDS ORDERED: oxyCODONE HCL 5 MG TABLET PO PRN (12:37)
[2019-11-06] MEDS ORDERED: PROMETHAZINE HCL 25 MG/1 ML VIAL IVPUSH PRN (12:37)
[2019-11-06] MEDS ORDERED: LACTATED RINGERS SOLUTION 1,000 ML IV SCH (12:45)
[2019-11-06] MEDS ORDERED: MIDAZOLAM HCL 2 MG/2 ML SINGLE DOSE VIAL ONE (14:46)
[2019-11-06] MEDS ORDERED: PROPOFOL 20 ML ONE (14:48)
[2019-11-06] MEDS ORDERED: ceFAZolin SODIUM 1 GM VIAL ONE (14:55)
[2019-11-06] MEDS ORDERED: LIDOCAINE HCL/PF 2% SDV 5ML VIAL ONE (14:55)
[2019-11-06] MEDS ORDERED: SODIUM CHLORIDE 0.9% P/F 10 ML VIAL IJ ONE (14:55)
[2019-11-06] MEDS ORDERED: KETOROLAC TROMETHAMINE 30 MG/1 ML VIAL ONE (14:57)
--- NOTE | 2019-11-06 15:14 | OP ---
Operative Note - Note: Operative Date: 11/06/19 ([facility]) Pre-Operative Diagnosis: right ankle painful hardware Operation: right ankle removal of hardware Post-Operative Diagnosis: Same as Pre-op Surgeon: Brett De Luna Anesthesia: General, Local Specimens Removed: screw
[2019-11-06 16:17] VITALS: BP 162/76; PULSE 77; TEMP 97.7
--- NOTE | 2019-11-06 22:23 | OP ---
DATE OF OPERATION: 11/06/2019 PREOPERATIVE DIAGNOSIS: Protruding hardware from right ankle. POSTOPERATIVE DIAGNOSIS: Protruding hardware from right ankle. PROCEDURE: Removal of hardware, right ankle. SURGICAL ATTENDING: Brett De Luna MD. ANESTHESIA: IV sedation. COMPLICATIONS: None. CONDITION: To recovery in stable condition. DESCRIPTION OF OPERATIVE PROCEDURE: Patient taken to the operating room on November 06, 2019. IV Kefzol was administered prophylactically prior to the case. The patient was given some IV sedation in the medial ankle area, was prepped and draped in the usual sterile fashion. There was a known ulcer over the tip of the medial malleolus where there was 1 screw that it was partially protruding. I informed the patient we were not going to dissect out the other hardware in the ankle, but that we were just going to remove this screw. A small fragment screwdriver was used to unscrew the screw. The area was cleaned, and then repaired with some Xeroform, and then dressed with one 4x4 and a Coban. Patient was awakened from anesthesia and transferred to recovery in stable condition. Fluoroscopy confirmed that the 1 screw had been removed. BRETT DE LUNA M.D. [id number]
--- NOTE | 2019-11-14 09:16 | PATH ---
Surgical Pathology Report Patient Name: ELENA BREWER [facility]. Rec. #: [id number] /Age/Gender: 1960 (Age: 59) / F Account: [id number] Location: [facility] [place] SURGICAL Taken: 11/06/2019 Received: 11/13/2019 Reported: 11/14/2019 Physicians: Brett De Luna M.D. Specimen(s) Received REMOVED SCREW RIGHT ANKLE Clinical History Screws right ankle Final Diagnosis REMOVED SCREW, ANKLE, RIGHT, REMOVAL: SURGICAL HARDWARE MACROSCOPIC DIAGNOSIS. Electronically Signed Marva Elizondo M.D. Gross Description Received fresh labeled "removed screw right ankle," is a 5 cm in length montiel metallic screw. No soft tissue is present. No sections are submitted, gross only. DL/11/13/2019 saudi11/13/2019
== END 2019-11-06 16:30 | disposition home or self-care (01) ==
LOC: JASU-SURG 04:33
PROVIDERS: ATTEND Orthopaedic Surgery
PROC: 0QPG04Z Removal of Internal Fixation Device from Right Tibia, Open Approach (ICD-10-PCS; principal; 2019-11-06 13:45)
DX: T84.89XA Other specified complication of internal orthopedic prosthetic devices, implants and grafts, initial encounter (principal); I10 Essential (primary) hypertension
CPT/HCPCS: 76000-TC-FY; 88300-TC